=== PATIENT | female | born 1950 | race Caucasian/White ===

== ENCOUNTER 2022-08-07 16:43 | Outpatient (REF) | payer SELFPAY ==
[2022-08-07 18:21] LABS: Anion Gap 16 (12-20); Blood Urea Nitrogen 8 mg/dL (9-16); Calcium 8.9 mg/dL (8.4-10.2); Carbon Dioxide 26 mmol/L (22-29); Chloride 99 mmol/L (96-108); Estimated Glomerular Filt Rate > 60; Glucose Random 71 mg/dL (60-115); Potassium 3.8 mmol/L (3.3-5.1); Sodium 137 mmol/L (135-145)
== END 2022-08-07 16:44 | disposition home or self-care (01) ==
LOC: HO.HVNA 16:43
PROVIDERS: Visit Provider Internal Medicine
DX: D64.9 Anemia, unspecified (principal)
CPT/HCPCS: 36415; 80048

== ENCOUNTER 2023-12-27 13:58 | Outpatient (AMB) | payer OTHER, SELFPAY ==
--- NOTE | 2023-12-27 13:55 | MHC.PC.OV ---
Vital Signs 12/27/23 14:28 Height 5 ft Weight 103 lb 6 oz BMI 20.2 BP 98/62 Blood Pressure Location Lt brachial Position Sitting Respiration 14 Pulse 62 Pulse Source Pulse Oximeter Temp 98.5 F Temp Source Oral Pulse Oximetry (%) 98 Oxygen Delivery Method Room Air Intake Visit Reasons: establish care Intake Note: New patient visit Manager Respiratory Required: No Allergies metronidazole [From Flagyl] Allergy (Unknown, Verified 12/27/23 13:58) Unknown moxifloxacin [From Avelox] Allergy (Unknown, Verified 12/27/23 13:58) Unknown penicillin G Allergy (Unknown, Verified 12/27/23 13:58) Unknown Medication List - Last Reconciled 12/27/23 by Catalina Paris MD clorazepate dipotassium mg PO fluoride (sodium) 1.1% PO BID lactobacillus combination no.4 (Probiotic) 3,000 mmu cells PO DAILY levothyroxine 137 mcg PO DAILY mirtazapine mg PO polyethylene glycol 3350 (Miralax) 17 grams PO DAILY psyllium husk (Daily Fiber) 0.4 grams PO DAILY quetiapine mg PO BID sennosides (Natural Senna Laxative) 8.6 mg PO DAILY varenicline ea PO Tobacco use date assessed: 12/27/23 Fall risk assessment: No Falls in past year Last assessed Fall Risk: 12/27/23 Dental Screening Dental Screen Date: 12/27/23 Did you have a dental visit in the last 12 months?: No Did you have a dental problem in the last 6 months where you did not have access to dental care?: No Was dental information given to patient?: Patient has dentist HPI HPI Comments History of Present Illness Details The patient is a 73 year old female with past medical history of cancer oropharynx, anxiety, insomnia, hypothyroid presenting to reestablish care BH: Stable on current medications Hypothyroid: maintained on levothyroxine. Heme/Onc: Follows [facility] Medical History (Updated 12/31/23 @ 11:32 by Catalina Paris MD) FHx: cholecystectomy Vitamin D deficiency Neck mass Multiple allergies Insomnia Hyperglycemia Hypercholesteremia Hiatal hernia H/O gastroesophageal reflux (GERD) Cervical radiculopathy Anxiety Surgical History (Updated 12/27/23 @ 14:03 by Martita Boles CMA) History of appendectomy H/O: section Family History (Updated 12/27/23 @ 14:00 by Martita Boles [facility]) Mother Aneurysm HTN (hypertension) Sister Mental disorder Paternal Grandfather Heart attack Social History Patient Tobacco Use Status: Current everyday Tobacco user Cigarette Packs Per Day: 3 Years Smoked: 57 e-Cigarette/Vaping Use: Never Used Second Hand Smoke Exposure: No service: No Current occupational status: retired Cognitive needs: No Hearing needs: Yes (difficulty hearing) Vision needs: Yes (glasses) Questionnaire PHQ-9 Over the last 2 weeks, how often have you been bothered by any of the following problems? 1. Little interest or pleasure in doing things: nearly every day 2. Feeling down, depressed, or hopeless: nearly every day 3. Trouble falling or staying asleep, or sleeping too much: nearly every day 4. Feeling tired or having little energy: nearly every day 5. Poor appetite or overeating: nearly every day 6. Feeling bad about yourself - or that you are a failure or have let yourself or your family down: nearly every day 7. Trouble concentrating on things, such as reading the newspaper or watching television: nearly every day 8. Moving or speaking so slowly that other people could have noticed. Or the opposite - being so fidgety or restless that you have been moving around a lot more than usual: nearly every day 9. Thoughts that you would be better off or of hurting yourself in some way: not at all Total score: 24 Depression Screening Interpretation: Positive (declines referral) Depression Screening Follow-up: Existing condition Depression Screening Done: Yes 16816 - PHQ-9 Billing: Yes Source: Developed by Drs. Derrick Finley, Yina Harden, Ja Vizcarra and colleagues, with an educational serena from [employer]. Thrive Questionnaire Date Thrive assessed: 12/27/23 I am a: Patient What is your living situation today?: I have a steady place to live Within the past 12 months, did the food you bought not last and you didn't have the money to get more?: Never true Within the past 12 months, did you worry whether your food would run out before you got money to buy more?: Never true Do you have trouble paying for medicines?: Yes Do you have trouble getting transportation to medical appointments?: No Do you have trouble paying your heating and electricity bill?: Yes Do you have trouble taking care of your child, family member or friend?: Yes Do you have trouble with day-to-day activities such as bathing, preparing meals, shopping, managing finances, etc.?: No Are you currently unemployed and looking for a job?: No Are you interested in more education?: No Please select the resources that you would like help with: None Currently or been in a relationship where the following occur: no concerns reported THRIVE Score: 1 AUDIT C Alcohol Use Questionnaire (AUDIT-C) 1. How often do you have a drink containing alcohol?: Never 3. How often do you have six or more drinks on one occasion?: Never Total Score: 0 JENELLE-7 AMB Questionnaire JENELLE-7 Date JENELLE - 7 assessed: 12/27/23 Feeling nervous, anxious, or on edge: 3 = Nearly every day Not being able to stop or control worryin = Nearly every day Worrying too much about different things: 3 = Nearly every day Trouble relaxin = Nearly every day Being so restless that it is hard to sit still: 3 = Nearly every day Becoming easily annoyed or irritable: 1 = Several days Feeling afraid as if something awful might happen: 3 = Nearly every day Total JENELLE-7 score (0-4 normal; 5-9 mild; 10-14 moderate; 15-21 severe): 19 Source: Developed by Drs. Derrick Finley, Yina Harden, Ja Vizcarra and colleagues, with an educational serena from [employer]. JENELLE-7 Assessment Billing JENELLE-7 Assessment Tool: JENELLE-7 Assessment 52759 Review of Systems Const Details: ROS CONSTITUTIONAL: Denies weight loss, fever and chills. HEENT: Denies changes in vision and hearing. RESPIRATORY: Denies SOB and cough. CV: Denies palpitations and CP GI: Denies abdominal pain, nausea, vomiting and diarrhea. : Denies dysuria and urinary frequency. MSK: Denies new myalgia and joint pain. SKIN: Denies rash and pruritus. NEUROLOGICAL: Denies headache PSYCHIATRIC: Denies recent changes in mood. Physical exam (Primary Care) Vital Signs: Last Vital Signs Temp 98.5 F 12/27/23 14:28 Pulse 62 12/27/23 14:28 Resp 14 12/27/23 14:28 BP 98/62 12/27/23 14:28 Pulse Ox 98 12/27/23 14:28 Oxygen Delivery Method Room Air 12/27/23 14:28 PHYSICAL EXAM: GENERAL: Alert and oriented x 3. NAD EYES: EOMI. Anicteric. HENT: Moist mucous membranes. No scleral icterus. No cervical lymphadenopathy. LUNGS: Clear to auscultation bilaterally. CARDIOVASCULAR: Regular rate and rhythm. No murmur. No JVD. ABDOMEN: Soft, non-tender +bs EXTREMITIES: No edema. Non-tender. SKIN: No rashes or lesions. Warm. NEUROLOGIC: No focal neurological deficits. CN II-XII grossly intact PSYCHIATRIC: Cooperative. Appropriate mood and affect BMI result Body Mass Index 20.2 Tobacco/Smoking Status: Tobacco use Status Tobacco use date assessed 12/27/23 12/27/23 14:27 Patient Tobacco Use Status Current everyday Tobacco 12/27/23 14:27 e-Cigarette/Vaping Use Never Used 12/27/23 14:27 PHQ-9: PHQ-9 Score PHQ-9: Total score 24 12/27/23 14:52 Depression Screening Interpretation: Positive (declines referral) Depression Screening Follow-up: Existing condition Thrive Assessment: Date of Thrive Assessment Date Thrive assessed 12/27/23 12/27/23 14:30 Currently or been in a relationship where the following occur: no concerns reported Assessment and Plan Assessment & Plan (1) Oropharyngeal cancer: Code(s): C10.9 - Malignant neoplasm of oropharynx, unspecified (2) Hyperglycemia: Code(s): R73.9 - Hyperglycemia, unspecified (3) Hypercholesteremia: Code(s): E78.00 - Pure hypercholesterolemia, unspecified (4) H/O gastroesophageal reflux (GERD): Code(s): Z87.19 - Personal history of other diseases of the digestive system (5) Insomnia: Code(s): G47.00 - Insomnia, unspecified Medications: New clorazepate dipotassium 22.5 mg (3 x 7.5 mg) PO DAILY PRN 90 tabs 0RF anxiety levothyroxine 137 mcg PO DAILY 90 tabs 3RF quetiapine 25 mg PO BID 90 days 180 tabs 3RF Coding Level of Care Code Est Pt Level 5 (52191) Complex EM visit Add On G2211 Diagnoses Oropharyngeal cancer C10.9 Hyperglycemia R73.9 Hypercholesteremia E78.00 H/O gastroesophageal reflux (GERD) Z87.19 Insomnia G47.00 Additional Codes JENELLE-7 Assessment Billing - JENELLE-7 Assessment Tool: JENELLE-7 Assessment [id number] ([id number])
[2023-12-27 14:28] VITALS: BP 98/62; PULSE 62; RESP 14; TEMP 36.9; O2SAT 98; BMI 20.2
== END 2023-12-27 14:57 | disposition home or self-care (01) ==
PROVIDERS: Visit Provider Internal Medicine
DX: C10.9 Malignant neoplasm of oropharynx, unspecified (principal); R73.9 Hyperglycemia, unspecified; E78.00 Pure hypercholesterolemia, unspecified; Z87.19 Personal history of other diseases of the digestive system; G47.00 Insomnia, unspecified
CPT/HCPCS: 99215; G2211

== ENCOUNTER 2024-02-18 10:34 | Outpatient (AMB) | payer OTHER, SELFPAY ==
--- NOTE | 2024-02-18 10:43 | MHC.PC.OV ---
Vital Signs 02/18/24 10:52 Height 5 ft Weight 101 lb 4 oz BMI 19.8 BP 112/62 Blood Pressure Location Lt brachial Position Sitting Pulse 62 Pulse Source Pulse Oximeter Pulse Oximetry (%) 96 Oxygen Delivery Method Room Air Intake Visit Reasons: Medication Intake Note: Patient think she is building a tolerance to her anxiety medication. Advertising Display Rotator Required: No Allergies metronidazole [From Flagyl] Allergy (Unknown, Verified 02/18/24 10:45) Unknown moxifloxacin [From Avelox] Allergy (Unknown, Verified 02/18/24 10:45) Unknown penicillin G Allergy (Unknown, Verified 02/18/24 10:45) Unknown Tobacco use date assessed: 12/27/23 Dental Screening Dental Screen Date: 12/27/23 HPI HPI Comments History of Present Illness Details The patient is a 73 year old female with past medical history of cancer oropharynx, anxiety, insomnia, hypothyroid presenting for follow up BH: Increased anxiety, decreased motivation, stress. Previously seen by [facility]. Had been stable for some time on clorazepate. Seroquel with SE. Unclear why not on SSRI though has been hesitant to try and switch medications in the past. Hypothyroid: maintained on levothyroxine. Heme/Onc: Follows [facility] ROS CONSTITUTIONAL: Denies weight loss, fever and chills. HEENT: Denies changes in vision and hearing. RESPIRATORY: Denies SOB and cough. CV: Denies palpitations and CP GI: Denies abdominal pain, nausea, vomiting and diarrhea. : Denies dysuria and urinary frequency. MSK: Denies new myalgia and joint pain. SKIN: Denies rash and pruritus. NEUROLOGICAL: Denies headache PSYCHIATRIC: Denies si/sa PHYSICAL EXAM: GENERAL: Alert and oriented x 3. NAD EYES: EOMI. Anicteric. HENT: Moist mucous membranes. No scleral icterus. No cervical lymphadenopathy. LUNGS: Clear to auscultation bilaterally. CARDIOVASCULAR: Regular rate and rhythm. No murmur. No JVD. ABDOMEN: Soft, non-tender +bs EXTREMITIES: No edema. Non-tender. SKIN: No rashes or lesions. Warm. NEUROLOGIC: No focal neurological deficits. CN II-XII grossly intact PSYCHIATRIC: Cooperative. Appropriate mood and affect, anxious [facility] Medical History (Updated 02/20/24 @ 09:46 by Catalina Paris MD) FHx: cholecystectomy Vitamin D deficiency Neck mass Multiple allergies Insomnia Hyperglycemia Hypercholesteremia Hiatal hernia H/O gastroesophageal reflux (GERD) Cervical radiculopathy Anxiety Surgical History (Updated 12/27/23 @ 14:03 by Martita Boles CMA) History of appendectomy H/O: section Family History (Updated 12/27/23 @ 14:00 by Martita Boles CMA) Mother Aneurysm HTN (hypertension) Sister Mental disorder Paternal Grandfather Heart attack Social History Patient Tobacco Use Status: Current everyday Tobacco user Cigarette Packs Per Day: 3 Years Smoked: 57 Packs Per Year: 171 e-Cigarette/Vaping Use: Never Used Second Hand Smoke Exposure: No service: No Current occupational status: retired Cognitive needs: No Hearing needs: Yes (difficulty hearing) Vision needs: Yes (glasses) Questionnaire Thrive Questionnaire Date Thrive assessed: 12/27/23 JENELLE-7 AMB Questionnaire JENELLE-7 Date JENELLE - 7 assessed: 12/27/23 Source: Developed by Drs. Derrick Finley, Yina Harden, Ja Vizcarra and colleagues, with an educational serena from [employer]. Physical exam (Primary Care) Vital Signs: Last Vital Signs Pulse 62 02/18/24 10:52 BP 112/62 02/18/24 10:52 Pulse Ox 96 02/18/24 10:52 Oxygen Delivery Method Room Air 02/18/24 10:52 BMI result Body Mass Index 19.8 Tobacco/Smoking Status: Tobacco use Status Tobacco use date assessed 12/27/23 02/18/24 10:43 Patient Tobacco Use Status Current everyday Tobacco 02/18/24 10:43 e-Cigarette/Vaping Use Never Used 02/18/24 10:43 Thrive Assessment: Date of Thrive Assessment Date Thrive assessed 12/27/23 02/18/24 10:43 Assessment and Plan Assessment & Plan (1) Oropharyngeal cancer: Code(s): C10.9 - Malignant neoplasm of oropharynx, unspecified (2) Generalized anxiety disorder: Code(s): F41.1 - Generalized anxiety disorder Plan: Discussed SSRI therapy. Trial zoloft 25mg daily. Follow up 4-6 weeks. Continue current medications (3) Depression: Code(s): F32.A - Depression, unspecified Qualifiers: Depression Type: major depressive disorder Major depression recurrence: recurrent Active/Remission status: in partial remission Qualified Code(s): F33.41 - Major depressive disorder, recurrent, in partial remission Medications: New sertraline Take 1/2 tab oral daily for 7 days then 1 tab oral daily for 90 days 25 mg PO DAILY 90 tabs 3RF 90 days F32.A - Depression, unspecified, F41.1 - Generalized anxiety disorder Changed From clorazepate dipotassium 22.5 mg (3 x 7.5 mg) PO DAILY 30 days PRN 90 tabs 0RF anxiety To clorazepate dipotassium 7.5 mg PO QID PRN 120 tabs 0RF anxiety 30 days Coding Level of Care Code Tele Est Pt Level 4 (48103) Diagnoses Oropharyngeal cancer C10.9 Generalized anxiety disorder F41.1 Recurrent major depressive disorder, in partial remission F33.41 Depression Type: major depressive disorder Major depression recurrence: recurrent Active/Remission status: in partial remission
[2024-02-18 10:52] VITALS: BP 112/62; PULSE 62; O2SAT 96; BMI 19.8
== END 2024-02-18 11:53 | disposition home or self-care (01) ==
PROVIDERS: Visit Provider Internal Medicine
DX: C10.9 Malignant neoplasm of oropharynx, unspecified (principal); F41.1 Generalized anxiety disorder; F33.41 Major depressive disorder, recurrent, in partial remission
CPT/HCPCS: 99214

== ENCOUNTER 2024-06-27 11:22 | Outpatient (AMB) | payer OTHER, SELFPAY ==
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
[2024-06-27 11:33] VITALS: BP 92/56; PULSE 69; O2SAT 97; BMI 19.7
== END 2024-06-27 12:01 | disposition home or self-care (01) ==
LOC: HO.HMCFM 11:23
PROVIDERS: PCP Internal Medicine; Visit Provider Internal Medicine
DX: F33.41 Major depressive disorder, recurrent, in partial remission (principal); F41.1 Generalized anxiety disorder; F51.01 Primary insomnia; R73.9 Hyperglycemia, unspecified

== ENCOUNTER → 2024-06-27 11:22 | Outpatient (BNVA) | payer OTHER, SELFPAY | PROVIDERS: PCP Internal Medicine; Visit Provider Internal Medicine | DX: F33.41 Major depressive disorder, recurrent, in partial remission (principal); F41.1 Generalized anxiety disorder; F51.01 Primary insomnia; E03.9 Hypothyroidism, unspecified; R73.9 Hyperglycemia, unspecified; C10.9 Malignant neoplasm of oropharynx, unspecified; E78.00 Pure hypercholesterolemia, unspecified; F17.210 Nicotine dependence, cigarettes, uncomplicated; Z71.89 Other specified counseling | CPT/HCPCS: 96127; 99212 ==

== ENCOUNTER 2024-09-06 11:34 | Outpatient (REF) | payer OTHER, SELFPAY ==
[2024-09-06 14:27] LABS: MANUAL DIFF FLAG NO
[2024-09-06 14:32] LABS: Basophils Absolute Auto 0.1 X10*3/uL (0.0-0.2); Basophils Percent Auto 0.8 % (0-2); Eosinophils Absolute Auto 0.1 X10*3/uL (0.0-0.4); Eosinophils Percent Auto 1.2 % (0-4); Hematocrit 37.8 % (37.0-47.0); Hemoglobin 12.9 g/dl (12.0-16.0); Imm Gran Abs Auto 0.01 X10*3/uL (0.00-0.03); Imm Gran Pct Auto 0.2 % (0.0-0.4); Lymphocytes Absolute Auto 0.9 X10*3/uL (1.2-4.9); Lymphocytes Percent Auto 15.9 % (20-40); Mean Corpuscular HGB Conc 34.1 g/dl (31.0-35.0); Mean Corpuscular Hemoglobin 32.7 pg (27.0-33.0); Mean Corpuscular Volume 95.7 fL (80.0-98.0); Mean Platelet Volume 10.9 fL (9.4-12.3); Monocytes Absolute Auto 0.5 X10*3/uL (0.1-1.2); Monocytes Percent Auto 8.3 % (2-11); Neutrophils Absolute Auto 4.4 x10*3/uL (2.0-8.3); Neutrophils Percent Auto 73.6 % (45-73); Platelet Count 237 X10*3/uL (160-400); Red Blood Count 3.95 X10*6/uL (4.20-5.50); Red Cell Distribution Width 11.9 % (11.0-16.0); White Blood Count 5.9 X10*3/uL (4.8-10.8)
[2024-09-06 14:56] LABS: Alanine Aminotransferase 94 U/L (0-31); Albumin Level 4.2 g/dL (3.5-5.0); Alkaline Phosphatase 237 U/L (39-117); Anion Gap 7 (12-20); Aspartate Amino Transferase 54 U/L (5-31); Bilirubin Total 0.3 mg/dL (0.0-1.0); Blood Urea Nitrogen 9 mg/dL (9-16); Calcium 9.6 mg/dL (8.4-10.2); Carbon Dioxide 30 mmol/L (22-29); Chloride 106 mmol/L (96-108); Cholesterol 160 mg/dL (<200); Estimated Glomerular Filt Rate > 60; Glucose Random 115 mg/dL (60-115); HDL Cholesterol 49 mg/dL (>40); LDL Cholesterol Calculated 77 mg/dL (<100); Potassium 3.8 mmol/L (3.3-5.1); Sodium 139 mmol/L (135-145); Total Protein 7.3 g/dL (6.5-8.0); Triglycerides 170 mg/dL (<150)
[2024-09-06 15:12] LABS: TSH reflex Free T4 0.37 uIU/mL (0.32-4.0)
== END 2024-09-06 11:35 | disposition home or self-care (01) ==
LOC: HO.WFDLDS 11:34
PROVIDERS: Visit Provider Internal Medicine
DX: R73.9 Hyperglycemia, unspecified (principal); E78.00 Pure hypercholesterolemia, unspecified; C10.9 Malignant neoplasm of oropharynx, unspecified; F33.41 Major depressive disorder, recurrent, in partial remission
CPT/HCPCS: 36415; 80053; 80061; 84443; 85025

== ENCOUNTER 2025-01-09 10:56 | Outpatient (AMB) | payer BC, MEDICAID, SELFPAY ==
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
[2025-01-09 11:03] VITALS: BP 116/58; PULSE 71; RESP 12; O2SAT 98; BMI 19.6
== END 2025-01-09 11:30 | disposition home or self-care (01) ==
LOC: HO.HMCFM 10:57
PROVIDERS: PCP Internal Medicine; Visit Provider Internal Medicine
DX: Z00.00 Encounter for general adult medical examination without abnormal findings (principal)

== ENCOUNTER → 2025-01-09 10:56 | Outpatient (BNVA) | payer BC, MEDICAID, SELFPAY | PROVIDERS: PCP Internal Medicine; Visit Provider Internal Medicine | DX: Z00.00 Encounter for general adult medical examination without abnormal findings (principal); F41.9 Anxiety disorder, unspecified; G47.00 Insomnia, unspecified; E03.9 Hypothyroidism, unspecified; C10.9 Malignant neoplasm of oropharynx, unspecified; E78.00 Pure hypercholesterolemia, unspecified; F41.1 Generalized anxiety disorder; R73.9 Hyperglycemia, unspecified; R74.8 Abnormal levels of other serum enzymes | CPT/HCPCS: 96127 ==

== ENCOUNTER 2025-01-09 11:45 | Outpatient (REF) | payer BC, MEDICAID, SELFPAY ==
[2025-01-09 14:23] LABS: MANUAL DIFF FLAG NO
[2025-01-09 14:28] LABS: Basophils Absolute Auto 0.1 X10*3/uL (0.0-0.2); Basophils Percent Auto 1.3 % (0-2); Eosinophils Absolute Auto 0.5 X10*3/uL (0.0-0.4); Eosinophils Percent Auto 7.6 % (0-4); Hematocrit 37.9 % (37.0-47.0); Hemoglobin 13.1 g/dl (12.0-16.0); Imm Gran Abs Auto 0.01 X10*3/uL (0.00-0.03); Imm Gran Pct Auto 0.2 % (0.0-0.4); Mean Corpuscular HGB Conc 34.6 g/dl (31.0-35.0); Mean Corpuscular Hemoglobin 32.4 pg (27.0-33.0); Mean Corpuscular Volume 93.8 fL (80.0-98.0); Mean Platelet Volume 11.3 fL (9.4-12.3); Monocytes Absolute Auto 0.6 X10*3/uL (0.1-1.2); Monocytes Percent Auto 9.6 % (2-11); Neutrophils Absolute Auto 3.9 x10*3/uL (2.0-8.3); Neutrophils Percent Auto 64.3 % (45-73); Platelet Count 240 X10*3/uL (160-400); Red Blood Count 4.04 X10*6/uL (4.20-5.50); Red Cell Distribution Width 12.1 % (11.0-16.0); White Blood Count 6.1 X10*3/uL (4.8-10.8)
[2025-01-09 14:40] LABS: Estimated Average Glucose 103 mg/dL; Hemoglobin A1C 107.5388 umol/L; Hemoglobin A1c % 5.2 % (<6.0); Total Hemoglobin (HGBA1C) 3278.7272 umol/L
[2025-01-09 14:47] LABS: Alanine Aminotransferase 90 U/L (0-31); Albumin Level 4.2 g/dL (3.5-5.0); Alkaline Phosphatase 228 U/L (39-117); Anion Gap 9 (12-20); Aspartate Amino Transferase 52 U/L (5-31); Bilirubin Total 0.3 mg/dL (0.0-1.0); Blood Urea Nitrogen 12 mg/dL (9-16); Calcium 9.4 mg/dL (8.4-10.2); Carbon Dioxide 29 mmol/L (22-29); Chloride 103 mmol/L (96-108); Cholesterol 161 mg/dL (<200); Estimated Glomerular Filt Rate > 60; Glucose Random 87 mg/dL (60-115); HDL Cholesterol 47 mg/dL (>40); LDL Cholesterol Calculated 90 mg/dL (<100); Potassium 3.5 mmol/L (3.3-5.1); Sodium 137 mmol/L (135-145); Total Protein 7.3 g/dL (6.5-8.0); Triglycerides 124 mg/dL (<150)
[2025-01-09 15:03] LABS: TSH reflex Free T4 1.23 uIU/mL (0.32-4.0)
[2025-01-12 06:58] LABS: Alk.Phos Iso. Macrohepatic 24 % (<=0); Alk.Phos Isoenzymes Bone 19 % (28-66); Alk.Phos Isoenzymes Intest 18 % (1-24); Alk.Phos Isoenzymes Liver 39 % (25-69); Alk.Phos Isoenzymes Placental 0 % (<=0); Alk.Phos Isoenzymes Total 206 U/L (37-153)
== END 2025-01-09 11:46 | disposition home or self-care (01) ==
LOC: HO.WFDLDS 11:45
PROVIDERS: Visit Provider Internal Medicine
DX: E78.00 Pure hypercholesterolemia, unspecified (principal); R73.9 Hyperglycemia, unspecified; F41.1 Generalized anxiety disorder; C10.9 Malignant neoplasm of oropharynx, unspecified; R74.8 Abnormal levels of other serum enzymes
CPT/HCPCS: 36415; 80053; 80061; 83036; 84080; 84443; 85025

== ENCOUNTER 2025-01-29 13:41 | Outpatient (REF) | payer MEDICARE, OTHER, SELFPAY ==
--- OUTSIDE RECORDS SUMMARY | 2025-01-29 15:31 | XMS_ITS | Encounter Summary ---
Author Organization [facility] Address [address] [place] [phone] Care Team Providers Care Weight Reducing Technician Name Role Phone Catalina Paris MD Primary Care Provider [phone] Reason for Visit * Reason Onset Date Comments INFORMATION NEEDED 01/19/2025 Encounter Details Date Type Department Care Team (Late st Contact Info) Description 01/19/2025 Telephone Gastroenterology - [place] [address] [place] [phone] Hemal Bacon MD 175 [facility] [address] [place] [address] INFORMATION NEEDED Social History Tobacco Use Types Packs/Day Years Used Date Smoking Tobacco: Never Assessed Comments Unknown Sex and Gender Information Value Date Recorded Sex Assigned at Not on file Legal Sex Female 1:13 PM EST Gender Identity Not on file Sexual Orientation Not on file documented as of this encounter Progress Notes * Angela Delacruz - 01/19/2025 1:07 PM EDT Records received from [facility] [place] for screening. Need insurance referral and meds. Faxed request and placed in missing accordion. documented in this encounter Plan of Treatment Not on file documented as of this encounter Visit Diagnoses Not on filedocumented in this encounter Care Teams Weight Reducing Technician Relationship Specialty Start Date End Date Catalina Paris MD [address] [facility] [address] [place] [address] PCP - General 08/07/22 documented as of this encounter
== END 2025-01-29 13:42 | disposition home or self-care (01) ==
LOC: HO.MAMMO 13:41
PROVIDERS: PCP Internal Medicine; Visit Provider Internal Medicine
DX: Z12.31 Encounter for screening mammogram for malignant neoplasm of breast (principal)
CPT/HCPCS: 77063; 77067

== ENCOUNTER → 2025-01-29 13:45 | Outpatient (BNV) | payer MEDICARE, MEDICAID, SELFPAY | PROVIDERS: PCP Internal Medicine; Visit Provider Internal Medicine | DX: Z12.31 Encounter for screening mammogram for malignant neoplasm of breast (principal) | CPT/HCPCS: 77063; 77067 ==

== ENCOUNTER 2025-04-12 14:43 | Outpatient (AMB) | payer MEDICARE, MEDICAID, SELFPAY ==
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
--- OUTSIDE RECORDS SUMMARY | 2025-04-12 14:45 | XMS_ITS | Encounter Summary ---
Author Organization [facility] Address [address] [place] [address] Phone Care Team Providers Care Dairy Bar Manager Name Role Phone Catalina Gastelum MD Primary Care Provider [phone] Quin Barragan PROPOSAL WRITER Unavailable [phone] Jaylin Ribeiro PROPOSAL WRITER Unavailable [phone] Sabine Harrison RN Unavailable [email or web address] Vitale RN Unavailable Oralia [email or web address] Zara Emerson PA-C Unavailable + Jada Mayfield MD, MPH Unavailable + [phone] Encounter Details Date Type Department Care Team (Late st Contact Info) Description 06/04/2022 Procedure Pass [facility] [address] [place] [address] Social History Tobacco Use Types Packs/Day Years Used Date Smoking Tobacco: Every Day Cigarettes 0.3 50 Smokeless Tobacco: Never Comments:smoked cigarettes s peg the age of 17, currenty 5 cigarettes a day Alcohol Use Standard Drinks/Week Comments Never 0 (1 standard drink = 0.6 oz pur e alcohol) Comments No Sex and Gender Information Value Date Recorded Sex Assigned at Female 07/24/2022 1:36 PM EST Legal Sex Female 12:17 PM EDT Gender Identity Female 07/24/2022 1:36 PM EST Sexual Orientation Straight 07/24/2022 1: 36 PM EST 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 Not on file Not on file Not o n file documented as of this encounter Plan of Treatment Upcoming Encounters Date Type Department Care Team (Late st Contact Info) Description 09/13/2025 10:20 AM EST Blood Draw Laboratory Services, [address] [place] [address] Reid Muhammad MD [address] [place] [phone] [email or web address] 09/13/2025 11:00 AM EST [facility], [address], [address] [place] [phone] Derrick Munoz MD [address] [place] [phone] [email or web address] 03/21/2026 1:00 PM EDT Office Visit [facility], [address], [address] [place] [address] Andres Banks MD, PhD [address] [place] [phone] [email or web address] documented as of this encounter Visit Diagnoses Not on filedocumented in this encounter Care Teams Dairy Bar Manager Relationship Specialty Start Date End Date Catalina Gastelum MD PCP - General Internal Medicine 04/09/22 Quin Barragan PROPOSAL WRITER [address] [place] [phone] [email or web address] Asbestos Remover 04/28/22 Jaylin Ribeiro, [address] [address] [email or web address] Asbestos Remover Oncology 05/12/22 Sabine Harrison, ALY [address] [place] [phone] [email or web address] Primary Infusion Nurse 05/19/22 Ivon Cameron RN [address] [place] [address] [email or web address] Associate Infusion Nurse 05/19/22 Zara Emerson PA-C [address] [place] [address] and [facility] [address] [email or web address] Physician Carpenter Packing 06/15/23 Jada Mayfield MD, MPH [address] [place] [phone] [email or web address] Radiation Oncology 06/15/23 documented as of this encounter Additional Source Comments The information contained in this document represents components of the legal health record. It is not the complete legal health record.[facility]
--- OUTSIDE RECORDS SUMMARY | 2025-04-12 14:45 | XMS_ITS | Clinical Summary ---
Author Organization 175 [facility] Address [address] [place] [address] Phone Care Team Providers Care Figure Skater Name Role Phone Catalina Paris MD Primary Care Provider [phone] Encounters Date Type Department Care Team Description 01/19/2025 Telephone Gastroenterology [facility] 175 [facility] [address] [facility] [address] [place] [address] Hemal Bacon MD INFORMATION NEEDED from Last 3 Months Social History Tobacco Use Types Packs/Day Years Used Date Smoking Tobacco: Never Assessed Comments Unknown Sex and Gender Information Value Date Recorded Sex Assigned at Not on file Legal Sex Female 1:13 PM EST Gender Identity Not on file Sexual Orientation Not on file Plan of Treatment Health Maintenance Due Date Last Done Comments Breast Cancer Screening 1950 DTaP,Tdap,and Td Vaccines (1 - Tdap) 1971 Pneumococcal Vaccine: 50+ Ye ars (1 of 1 - PCV) 2002 Zoster Vaccines (1 of 2) 2002 Colorectal Cancer Screening: Colonoscopy 09/21/2023 Falls Risk Assessment 09/21/2023 Hepatitis C Screening 09/21/2023 Medicare Annual Wellness Visit 09/21/2023 Osteoporosis Screening (Bone Density Screening) 09/21/2023 Social Influencers of Health Screening 09/21/2023 COVID-19 Vaccine ( - 2023-2 5 season) 2024 Depression Screening 08/23/2024 Influenza Vaccine (#1) 2025 RSV Immunization Adult Patie nts (1 - 1-dose 75+ series) 2027 HIB Vaccines Aged Out No longer eligi ble based on patient's age to complete this topic HPV Vaccines Aged Out No longer eligi ble based on patient's age to complete this topic Hepatitis A Vaccines Aged Out No long er eligible based on patient's age to complete this topic Hepatitis B Vaccines Aged Out No long er eligible based on patient's age to complete this topic IPV Vaccines Aged Out No longer eligi ble based on patient's age to complete this topic MMR Vaccines Aged Out No longer eligi ble based on patient's age to complete this topic Meningococcal ACWY Vaccine Aged Out N o longer eligible based on patient's age to complete this topic Meningococcal B Vaccine Aged Out No l onger eligible based on patient's age to complete this topic RSV Immunization Patients Un matt 20 months Aged Out No longer eligible b ased on patient's age to complete this topic Varicella Vaccines Aged Out No longer eligible based on patient's age to complete [place] [address] BL[place] - [place] MEDIC[place] AD[place]ANTAGE [place]ICAID - [place] Care Teams Figure Skater Relationship Specialty Start Date End Date Catalina Paris MD [address] [place] [id number] PCP - General 08/07/22
== END 2025-04-12 14:47 | disposition home or self-care (01) ==
LOC: HO.HOP 14:43
PROVIDERS: PCP Internal Medicine; Visit Provider Clinical Nurse Specialist Psychiatric/Mental Health, Adult
DX: F39 Unspecified mood [affective] disorder (principal)
CPT/HCPCS: 90792

== ENCOUNTER → 2025-04-12 14:43 | Outpatient (BNVA) | payer MEDICARE, MEDICAID, SELFPAY | PROVIDERS: PCP Internal Medicine; Visit Provider Clinical Nurse Specialist Psychiatric/Mental Health, Adult | DX: F39 Unspecified mood [affective] disorder (principal) | CPT/HCPCS: 90792 ==

== ENCOUNTER 2025-04-26 13:59 | Outpatient (AMB) | payer MEDICARE, MEDICAID, SELFPAY ==
--- NOTE | 2025-04-26 14:09 | A.OFFPSYCH_ITS ---
Intake Intake Visit Reasons: follow up Intake Note: PHQ-9 22 JENELLE-7 20 Cap Coverer Required: No Allergies metronidazole (From Flagyl) Allergy (Unknown, Verified 01/09/25 11:00) Unknown moxifloxacin (From Avelox) Allergy (Unknown, Verified 01/09/25 11:00) Unknown penicillin G Allergy (Unknown, Verified 01/09/25 11:00) Unknown Medication List - Last Reconciled 04/26/25 by Florence Ojeda APRN aspirin (Adult Low Dose Aspirin) 81 mg PO DAILY clorazepate dipotassium 7.5 mg PO QID esomeprazole magnesium (Nexium 24HR) 20 mg PO DAILY fluconazole 150 mg PO DAILY fluoride (sodium) 1.1% PO BID lactobacillus combination no.4 (Probiotic) 3,000 mmu cells PO DAILY lamotrigine (Lamictal) 25 mg PO DAILY 14 days levothyroxine 137 mcg PO DAILY mirtazapine orally AT BEDTIME; take one to two tablets at bedtime polyethylene glycol 3350 (Miralax) 17 grams PO DAILY psyllium husk (Daily Fiber) 0.4 grams PO DAILY quetiapine 25 mg PO QID 90 days sennosides (Natural Senna Laxative) 8.6 mg PO DAILY sertraline 25 mg PO DAILY HPI- Psychiatric Chief Complaint: follow up Intake Note: Anu reports ongoing stress as sister will be living with her when her hospitalization is completed and she requires much care. Finances are also a stress for pt and her son. She reports they are liquidating assets which is stressful and managing issues with tenants. Reports reqular compliance with clorazepate, although pt reports it franco her mouth, lamictal. Intermittent mirtazapine/sertraline use. Seroquel is being used with sx of sore throat today. She remains anxious. We discussed increasing Lamictal to 50 mg and a trial of Olanzapine 2.5 mg to assist with grounding and anxiety mgt. to replace Seroquel which she agrees to trial. HPI Past Psychiatric History: Trials: Sertraline, Seroquel, Mirtazapine Subjective Subjective Subjective Medication Compliance: Intermittent Side effects from medications: Yes Review of Systems Medical Review of Systems: unchanged Review of Systems Review of Systems sore throat- pt believes from Seroquel, mouth burning- pt believes from clorazepate. Mental Status Exam Mental Status Exam Patient Appearance: Appropriate Patient Orientation: Person, Place, Time and Situation Level of Consciousness: Alert Patient Behavior: Anxious Mood Description: Anxious Affect Description: Anxious Patient Cognition Impaired: No Ability to Follow Directions: Good Speech Pattern: Spontaneous Speech Memory Description: Intact Hallucinations: None Delusions: Not Present Thought Process: Intact and Rumination Thought Content: positive for Perseveration and positive for Suicidal Ideation (denies) Depressive Symptoms: Increased Anxiety Judgement: Good Assessment and Plan Assessment & Plan (1) Generalized anxiety disorder: Status: Acute Code(s): F41.1 - Generalized anxiety disorder (2) Depression: Status: Acute Qualifiers: Depression Type: major depressive disorder Major depression recurrence: recurrent Active/Remission status: in partial remission Qualified Code(s): F33.41 - Major depressive disorder, recurrent, in partial remission Code(s): F32.A - Depression, unspecified (3) Mood disorder: Status: Acute Code(s): F39 - Unspecified mood [affective] disorder Plan Increase Lamictal to 50 mg daily Olanzapine 2.5 mg daily prn for anxiety, grounding mgt of sx trial. Medications: New olanzapine 2.5 mg PO DAILY PRN 7 tabs 0RF anxiety lamotrigine (Lamictal) 50 mg (2 x 25 mg) PO DAILY 28 tabs 0RF 14 days Counseling and coordination of Care Medication management counseling: Effectiveness, Side effects, Dosing range, Duration, Drug interaction and Adherence Details: I spent [] minutes reviewing the record, seeing the patient and documenting in the medical record. Counseling provided to the patient/caregiver as outlined below. Addressed patient/caregiver concerns regarding current medication regime including effective adherence. Addressed patient/caregiver concerns regarding diagnosis and prognosis including accuracy of diagnosis, prognosis over time, impact of diagnosis. Addressed patient/caregiver concerns regarding impact of recent stre ssors. [facility] Medical History FHx: cholecystectomy Vitamin D deficiency Neck mass Multiple allergies Insomnia Hyperglycemia Hypercholesteremia Hiatal hernia H/O gastroesophageal reflux (GERD) Cervical radiculopathy Anxiety Surgical History History of appendectomy H/O: section Family History Mother Aneurysm HTN (hypertension) Sister Mental disorder Paternal Grandfather Heart attack Social History Alcohol intake: never Patient Tobacco Use Status: Current everyday Tobacco user Cigarette Packs Per Day: 3 Years Smoked: 57 e-Cigarette/Vaping Use: Never Used Second Hand Smoke Exposure: No service: No Current occupational status: retired Cognitive needs: No Hearing needs: Yes (difficulty hearing) Vision needs: Yes (glasses) Social History: Father was a chief scientific officer, sister with bipolar disorder and borderline personality. Pt's son is 36, he is my life Substance History: smoker of 57 years Trauma History: affirms Coding Level of Care Code Est Pt Level 3 (73248) Diagnoses Generalized anxiety disorder F41.1 Recurrent major depressive disorder, in partial remission F33.41 Depression Type: major depressive disorder Major depression recurrence: recurrent Active/Remission status: in partial remission Mood disorder F39
--- OUTSIDE RECORDS SUMMARY | 2025-04-26 15:14 | XMS_ITS ---
Author Organization [facility] Address [address] [place] [address] Phone Care Team Providers Care Delivery Helper Name Role Phone Catalina Gastelum MD Primary Care Provider [phone] Quin Barragan TECHNICAL WRITER AND EDITOR Unavailable [phone] Jaylin Ribeiro TECHNICAL WRITER AND EDITOR Unavailable [phone] Sabine Harrison RN Unavailable [email or web address]. Ivon Vitale RN Unavailable Oralia 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 Able to have a bowel movement in the hospital after initiation of aggressive bowel regiment. - Continue aggressive bowel regimen: senna, miralax, PRN suppostory, PRN lactulose, PRN MOM. S/p relistor and manual disimpaction on 07/25 with moderate relief - Currently stable without evidence of bowel wall thickening, no role for antibiotics - Enema today with pre-medication - PRN simethicone - pain control: PRN tylenol, oxycodone 5mg PRN - nausea control: IV/PO reglan PRN(with additional promotility benefit), avoid zofran as constipation Anxiety 04/22/2022 Cervical radiculopathy 04/22/2022 Gastroesophageal reflux disease 04/22/2022 Hiatal hernia 04/22/2022 Hypercholesterolemia 04/22/2022 Hyperglycemia 04/22/2022 Hypothyroidism 04/22/2022 Assessment & Plan (07/24/2022 8:11 PM EST): -continue home levothyroxine Insomnia 04/22/2022 Vitamin D deficiency 04/22/2022 Squamous cell carcinoma of base of tongue 2021 Assessment & Plan (07/24/2022 8:10 PM EST): Presented with enlarged lymph nodes on both sides of the neck in the setting of COVID infection, they resolved, however a new distinct mass grew larger over the left side of the neck over the following weeks in June of 2021. In August 2021 an US of the neck was ordered and performed in January. It showed enlarged, morphologically abnormal lymph nodes in the lateral aspect of the left neck measuring up to 1.3 cm superiorly and 1.[address] of the neck in March showed asymmetrically enhancing lesion extending from the posterior aspect of the left base up to the mid tongue. Multilevel bilaterally enlarged cervical lymph nodes demonstrating areas of necrosis. PET/CT later that month showed a 2 cm mass arising from the left posterior/base of tongue. Biopsy showed squamous cell carcinoma. Started on weekly cisplatin and XRT. Primary Medical Oncologist: MD: Dr. Munoz Assessment & Plan (07/21/2022 5:27 PM EST): Treatment: s/p Weekly Cisplatin + XRT o Hydrate today on Y11 o KUB shows moderate amount of stool, no signs of obstruction. Given Bisacodyl suppository in clinic with small amount of stool passed. Prescribed lactulose to use at home. Recommended she continue senna and take lactulose daily with a goal of daily bowel movements. She will call if she does not have daily bowel movements. Pain Management: Oxycodone as needed for pain Nausea Management: Metoclopramide, Ondansetron and Lorazepam o Encouraged to minimize Ondansetron to decrease risk of constipation Bowel Regimen: Senna and Lactulose Oral Care / Dental Hygiene: Oral rinses as indicated Nutritional Support: Tolerating a modified diet Supplementing oral diet with tube feeds. Weight is down. o Encouraged to increase caloric intake and utilize PEG if unable to do this by mouth. MANAGER CLINICAL INFORMATICS Support: As needed Emotional: Coping well Assessment & Plan (07/17/2022 11:38 PM EST): Treatment: s/p Weekly Cisplatin + XRT Hydrate today on Y11 Triamcinolone cream for skin rash Pain Management: Anu met with Dr. Beck today to review pain regimen Nausea Management: Metoclopramide, Ondansetron and Lorazepam Bowel Regimen: Colace, Senna and Miralax Oral Care / Dental Hygiene: Oral rinses as indicated Nutritional Support: Tolerating a modified diet Supplementing oral diet with tube feeds. Weight is down. Encouraged to increase caloric intake and utilize PEG if unable to do this by mouth. MANAGER CLINICAL INFORMATICS Support: As needed Emotional: Coping well Assessment & Plan (07/13/2022 10:17 PM EST): Treatment: Weekly Cisplatin + XRT She has completed her treatment Reviewed the expected trajectory of recovery, and reinforced that it could be 3- 4 weeks before she feels notably better. She should continue to push fluids, maintain her weight, and manage her pain. Pain Management: Acetaminophen and Oxycodone Nausea Management: Metoclopramide, Ondansetron and Lorazepam Bowel Regimen: Colace, Senna and Miralax Oral Care / Dental Hygiene: Oral rinses as indicated Nutritional Support: Tolerating a modified diet Supplementing oral diet with tube feeds. Weight is down. Encouraged to increase caloric intake and utilize PEG if unable to do this by mouth. MANAGER CLINICAL INFORMATICS Support: As needed Emotional: Coping well Assessment & Plan (07/05/2022 9:56 PM EST): Treatment: Weekly Cisplatin + XRT OK to continue treatment today: C1 D43 Pain Management: Acetaminophen Nausea Management: Metoclopramide, Ondansetron, Dexamethasone and Lorazepam Bowel Regimen: Colace and Senna Oral Care / Dental Hygiene: Oral rinses as indicated Nutritional Support: Tolerating a modified diet Weight is down. Encouraged to increase caloric intake and utilize PEG if unable to do this by mouth. MANAGER CLINICAL INFORMATICS Support: As needed Emotional: Coping well Assessment & Plan (06/26/2022 10:56 AM EDT): Treatment: Weekly Cisplatin + XRT OK to continue treatment today: C1 D36 Pain Management: Acetaminophen Nausea Management: Metoclopramide, Ondansetron, Dexamethasone and Lorazepam Bowel Regimen: Colace and Senna Oral Care / Dental Hygiene: Oral rinses as indicated Nutritional Support: Tolerating a modified diet Weight is down. Encouraged to increase caloric intake and utilize PEG if unable to do this by mouth. MANAGER CLINICAL INFORMATICS Support: As needed Emotional: Coping well Assessment & Plan (06/13/2022 9:19 PM EDT): Treatment: Weekly Cisplatin + XRT OK to continue treatment today: C1 D22 Pain Management: Acetaminophen Nausea Management: Metoclopramide, Ondansetron, Dexamethasone and Lorazepam Bowel Regimen: Colace and Senna Oral Care / Dental Hygiene: Oral rinses as indicated Nutritional Support: Tolerating full oral diet. Weight is down. MANAGER CLINICAL INFORMATICS Support: As needed Emotional: Coping well Assessment & Plan (06/05/2022 12:51 AM EDT): Treatment: C1 D15 Weekly Cisplatin + XRT PEG planned for later this week Is not tolerating rapid steroid taper. Will have her do slower taper: Dexamethasone 8 mg BID Wed/Wed, Wednesday 4 mg BID, Wednesday 4 mg QAM Pain Management: Acetaminophen Nausea Management: Metoclopramide, Ondansetron, Dexamethasone and Lorazepam Bowel Regimen: Colace and Senna Oral Care / Dental Hygiene: Oral rinses as indicated Nutritional Support: Tolerating full oral diet. Weight is down. MANAGER CLINICAL INFORMATICS Support: As needed Emotional: Coping well Assessment & Plan (06/01/2022 1:20 PM EDT): Treatment: C1 D8 Weekly Cisplatin + XRT PT-INR and EKG today for planned PEG placement in the next 1-2 weeks Pain Management: Acetaminophen Nausea Management: Metoclopramide, Ondansetron, Dexamethasone and Lorazepam Bowel Regimen: Colace and Senna Oral Care / Dental Hygiene: Oral rinses as indicated Nutritional Support: Tolerating full oral diet. Weight is down. MANAGER CLINICAL INFORMATICS Support: As needed Emotional: Coping well Current Treatment and Therapy Plans No current plan information found. Past Treatment and Therapy Plans TREATMENT PLAN Plan Name Start Date Discontinue Date Treatment Medications Discontinue Reason Plan Provider Cycles CISPLATIN 40 MG/M2 WITH XRT (7 WEEK CYCLE) 05/19/2022 03/16/2023 CISplatin (PLATINOL) IVPB 270 mL a. Therapy Complete Derrick Munoz MD 1 of 1 cycle started Radiation Treatments * Course C1 05/18/2022 - 07/06/2022 Treatment Period Energy Fraction Dose Fractions Total Dose Plans Planned A1_OPX_BIL_NK 05/18/2022 - 07/06/2022 200 cGy 35 / 35 7,000 cGy Reference Points Delivered A_OPX_BIL_NK 05/18/2022 - 07/06/2022 7,000 cGy
--- OUTSIDE RECORDS SUMMARY | 2025-04-26 15:14 | XMS_ITS | Encounter Summary ---
Author Organization [facility] Address [address] [place] [address] Phone Care Team Providers Care Administrative Manager Name Role Phone Catalina Gastelum MD Primary Care Provider + [phone] Quin Barragan MELT DOWN FURNACE OPERATOR Unavailable [phone] Jaylin Ribeiro MELT DOWN FURNACE OPERATOR Unavailable [phone] Sabine Harrison RN Unavailable [email or web address] Ivon Vitale RN Unavailable Oralia [email or web address] Zara Emerson PA-C Unavailable + Jada Mayfield MD, MPH Unavailable + [phone] Encounter Details Date Type Department Care Team (Late st Contact Info) Description 04/20/2022 Procedure Pass [facility] Periop [address] [place] [address] Social History Tobacco Use Types Packs/Day Years [...] 10:20 AM EST Blood Draw Laboratory Services, [address], [address] [place] [address] Reid Muhammad MD [address] [place] [phone] [email or web address] 09/13/2025 11:00 AM EST [facility], [address], [address] [place] [phone] Derrick Munoz MD [address] [place] [phone] [email or web address] 03/21/2026 1:00 PM EDT Office Visit [facility], [address], [address] [place] [phone] Andres Banks MD, PhD [address] [place] [phone] [email or web address] documented as of this encounter Visit Diagnoses Not on filedocumented in this encounter Care Teams Administrative Manager Relationship Specialty Start Date End Date Catalina Gastelum MD PCP - General Internal Medicine 04/09/22 Quin Barragan MELT DOWN FURNACE OPERATOR [address] [place] [phone] [email or web address] House Calls Nurse Practitioner 04/28/22 Jaylin Ribeiro, [address] [address] [email or web address] House Calls Nurse Practitioner Oncology 05/12/22 Sabine Harrison, ALY [address] [place] [address] JOSÉ [email or web address] Primary Infusion Nurse 05/19/22 Ivon Cameron RN [address] [place] [address] [email or web address] Associate Infusion Nurse 05/19/22 Zara Emerson PA-C [address] [place] [address] and [place] [place] [address] [email or web address] Physician Biomedical Specialist 06/15/23 Jada Mayfield MD, MPH [address] [place] [phone] [email or web address] Radiation Oncology 06/15/23 documented as of this encounter Additional Source Comments The information contained in this document represents components of the legal health record. It is not the complete legal health record.[facility]
--- OUTSIDE RECORDS SUMMARY | 2025-04-26 15:14 | XMS_ITS | Encounter Summary ---
Author Organization [facility] Address [address] [place] [address] Phone Care Team Providers Care Otr Flatbed Driver Name Role Phone Catalina Gastelum MD Primary Care Provider + [phone] Quin Barragan YOUTH ASSOCIATE Unavailable [phone] Jaylin Ribeiro YOUTH ASSOCIATE Unavailable [phone] Sabine Harrison RN Unavailable MICHELLE [email or web address] Ivon Vitale RN Unavailable Oralia [email or web address] Zraa Emerson PA-C Unavailable + Jada Mayfield MD, MPH Unavailable + [phone] Encounter Details Date Type Department Care Team (Late st Contact Info) Description 11/06/2022 Procedure Pass [facility] Imaging [facility], [facility], [place] [address] [place] [address] Social History Tobacco Use Types Packs/Day Years [...] 10:20 AM EST Blood Draw Laboratory Services, [address], [address] [place] [address] Reid Muhammad MD [address] [place] [phone] [email or web address] 09/13/2025 11:00 AM EST Office Visit [facility], [address], [address] [place] [address] Derrick Munoz MD [address] [place] [phone] [email or web address] 03/21/2026 1:00 PM EDT Office Visit [facility], [address], [address], [place] [address] Andres Banks MD, PhD [address] [place] [phone] [email or web address] documented as of this encounter Visit Diagnoses Not on filedocumented in this encounter Care Teams Otr Flatbed Driver Relationship Specialty Start Date End Date Catalina Gastelum MD PCP - General Internal Medicine 04/09/22 Quin Barragan, [facility] [address] [place] [address] [email or web address] Production Control Scheduler 04/28/22 Jaylin Ribeiro, [facility] [address] [place] [address] [email or web address] Production Control Scheduler Oncology 05/12/22 Sabine Harrison, RN [address] [place] [phone] JOSÉ [email or web address] Primary Infusion Nurse 05/19/22 Ivon Cameron RN [address] [place] [address] [email or web address] Associate Infusion Nurse 05/19/22 Zara Emerson PA-C [address] [place] [address] [place] [address] [email or web address] Physician Certified Nurse Operating Room 06/15/23 Jada Mayfield MD, MPH [address] [place] [phone] [email or web address] Radiation Oncology 06/15/23 documented as of this encounter Additional Source Comments The information contained in this document represents components of the legal health record. It is not the complete legal health record.[facility]
--- OUTSIDE RECORDS SUMMARY | 2025-04-26 15:14 | XMS_ITS | Encounter Summary ---
Author Organization [facility] Address [address] [place] [address] Phone Care Team Providers Care Floral Design Teacher Name Role Phone Catalina Gastelum MD Primary Care Provider + [phone] TRAFFIC CONTROL TECHNICIAN Unavailable [phone] TRAFFIC CONTROL TECHNICIAN Unavailable [phone] Sabine Harrison RN Unavailable [email or web address] Ivon Vitale RN Unavailable Oralia [email or web address] Zara Emerson PA-C Unavailable + Jada Mayfield MD, MPH Unavailable + [phone] Encounter Details Date Type Department Care Team (Late st Contact Info) Description 12/07/2023 Procedure Pass [facility] Imaging Department, [facility] [place], [place] [address] [facility], [address] [place] [address] Social History Tobacco Use Types Packs/Day Years Used Date Smoking Tobacco: Every Day Cigarettes 0.3 50 Smokeless Tobacco: Never Comments:smoked cigarettes s peg the age of 17, currenty 5 cigarettes a day Alcohol Use Standard Drinks/Week Comments Never 0 (1 standard drink = 0.6 oz pur e alcohol) Education Answer Date Recorded Are you interested in more education? Not on eduin e 12/18/2022 Are you concerned about learning? Not on file 12/18/2022 No 12/18/2022 No 12/18/2022 Digital Access Answer Date Recorded No 01/19/2023 No 01/19/2023 Reliable internet access at home? Not on file 01/19/2023 Device with a working camera? Not on file Comments No Sex and Gender Information Value [...] 10:20 AM EST Blood Draw Laboratory Services, [address], [address] [place] [address] Reid Muhammad MD [address] [place] [phone] [email or web address] 09/13/2025 11:00 AM EST Office Visit [facility], [address], [address] [place] [address] Derrick Munoz MD [address] [place] [phone] [email or web address] 03/21/2026 1:00 PM EDT Office Visit [facility], [address], [address] [place] [address] Andres Banks MD, PhD [address] [place] [phone] [email or web address] documented as of this encounter Visit Diagnoses Not on filedocumented in this encounter Care Teams Floral Design Teacher Relationship Specialty Start Date End Date Catalina Gastelum MD PCP - General Internal Medicine 04/09/22 Quin Barragan, [address] [address] [email or web address] Clinical Engineer 04/28/22 Jaylin Ribeiro, [address] [address] [email or web address] Clinical Engineer Oncology 05/12/22 Sabine Harrison, ALY [address] [place] [address] JOSÉ [email or web address] Primary Infusion Nurse 05/19/22 Ivon Cameron RN [address] [place] [address] [email or web address] Associate Infusion Nurse 05/19/22 Zara Emerson PA-C [address] [place] [phone] [email or web address] Physician Retail Shift Leader 06/15/23 Jada Mayfield MD, MPH [address] [place] [phone] [email or web address] Radiation Oncology 06/15/23 documented as of this encounter Additional Source Comments The information contained in this document represents components of the legal health record. It is not the complete legal health record.[facility]
--- OUTSIDE RECORDS SUMMARY | 2025-04-26 15:14 | XMS_ITS | Clinical Summary ---
Author Organization [address] [facility] Address [address] [place] [address] Phone Care Team Providers Care Inspector Screen Printing Name Role Phone Catalina Paris MD Primary Care Provider [phone] Social History Tobacco Use Types Packs/Day Years [...] patient's age to complete this topic Insurance [facility] [place] [id number] [place]IC[place] - [place] Care Teams Inspector Screen Printing Relationship Specialty Start Date End Date Catalina Paris MD [address] [place] [address] [address] [place] [address] PCP - General 08/07/22
--- OUTSIDE RECORDS SUMMARY | 2025-04-26 15:14 | XMS_ITS | Encounter Summary ---
Author Organization [facility] Address [address] [facility] [address] [place] [address] Phone Care Team Providers Care Pilot Boat Operator Name Role Phone Catalina Gastelum MD Primary Care Provider + [phone] Quin Barragan LOAN REVIEW MANAGER Unavailable [phone] Jaylin Ribeiro LOAN REVIEW MANAGER Unavailable [phone] Sabine Harrison RN Unavailable MICHELLE [email or web address]. Ivon Vitale RN Unavailable Oralia [email or web address] Zara Emerson PA-C Unavailable + Jada Mayfield MD, MPH Unavailable + [phone] Encounter Details Date Type Department Care Team (Late st Contact Info) Description 11/06/2022 Procedure Pass Trudy Lank Imaging Department, [facility] [place], [place] [address] [facility], Floor [address]1 [place] [address] Social History Tobacco Use Types Packs/Day Years [...] 10:20 AM EST Blood Draw Laboratory Services, [address], 2nd [place] [address] Reid Muhammad MD [address] [place] [phone] [email or web address] 09/13/2025 11:00 AM EST Office [facility], [address], [address] [place] [address] Derrick Munoz MD [address] [place] [phone] Olegario@[email or web address] 03/21/2026 1:00 PM EDT Office Visit [facility], [address], [address], [place] [address] Andres Banks MD, PhD [address] [place] [phone] [email or web address]@[email or web address] documented as of this encounter Visit Diagnoses Not on filedocumented in this encounter Care Teams Pilot Boat Operator Relationship Specialty Start Date End Date Catalina Gastelum MD PCP - General Internal Medicine 04/09/22 Quin Barragan, [facility] [address] [place] [address] [email or web address] Manager Respiratory Care 04/28/22 Jaylin Ribeiro, [facility] [address] [place] [address] Rhiannon@[facility] Manager Respiratory Care Oncology 05/12/22 Sabine Harrison, RN [address] [place] [address] JOSÉ [email or web address]@[email or web address] Primary Infusion Nurse 05/19/22 Ivon Cameron RN [address] [place] [phone] [email or web address] Associate Infusion Nurse 05/19/22 Zara Emesron PA-C [address] [place] [address] [place] [address] [email or web address] Physician Geoscience Specialist 06/15/23 Jada Mayfield MD, MPH [address] [place] [phone] [email or web address] Radiation Oncology 06/15/23 documented as of this encounter Additional Source Comments The information contained in this document represents components of the legal health record. It is not the complete legal health record.[facility]
--- OUTSIDE RECORDS SUMMARY | 2025-04-26 15:14 | XMS_ITS | Encounter Summary ---
Author Organization [facility] Address [address] [facility] [address] [place] [address] Phone Care Team Providers Care Solar Energy Advisor Name Role Phone Catalina Gastelum MD Primary Care Provider + [phone] Quin Barragan ALLOY WEIGHER Unavailable +[phone] Jaylin Ribeiro ALLOY WEIGHER Unavailable [phone] Sabine Harrison RN Unavailable MICHELLE [email or web address]. vIon Vitale RN Unavailable Oralia [email or web address] [facility] Zara Emerson PA-C Unavailable + Jada Mayfield MD, MPH Unavailable + [phone] Encounter Details Date Type Department Care Team (Late st Contact Info) Description 12/07/2023 Procedure Pass Trudy Lank Imaging Department, [facility] [place], [place] [address] [facility], Floor [address] [place] [address] Social History Tobacco Use Types Packs/Day Years [...] 10:20 AM EST Blood Draw Laboratory Services, [address], 2nd [place] [address] Reid Muhammad MD [address] [place] [phone] [email or web address] 09/13/2025 11:00 AM EST Office Visit [facility], [address], [address] [place] [address] Derrick Munoz MD [address] [place] [phone] Olegario@[email or web address] 03/21/2026 1:00 PM EDT Office Visit [facility], [address], [address] [place] [address] Andres Banks MD, PhD [address] [place] [phone] [email or web address]@[facility] documented as of this encounter Visit Diagnoses Not on filedocumented in this encounter Care Teams Solar Energy Advisor Relationship Specialty Start Date End Date Catalina Gastelum MD PCP - General Internal Medicine 04/09/22 Quin Barragan, [address] [address] Shira@[email or web address] Spooler Operator Automatic 04/28/22 Jaylin Ribeiro, [address] [address] [email or web address] Spooler Operator Automatic Oncology 05/12/22 Sabine Harrison, ALY [address] [place] [address] JOSÉ [email or web address]@[email or web address] Primary Infusion Nurse 05/19/22 Ivon Cameron RN [address] [place] [address] [email or web address] Associate Infusion Nurse 05/19/22 Zara Emerson PA-C [address] [place] [address] [email or web address] Physician Medical Claims Assistant 06/15/23 Jada Mayfield MD, MPH [address] [place] [phone] [email or web address] Radiation Oncology 06/15/23 documented as of this encounter Additional Source Comments The information contained in this document represents components of the legal health record. It is not the complete legal health record.[facility]
--- OUTSIDE RECORDS SUMMARY | 2025-04-26 15:14 | XMS_ITS | Encounter Summary ---
Author Organization [facility] Address [address] [facility] [address] [place] [address] Phone Care Team Providers Care Front End Alignment Specialist Name Role Phone Catalina Gastelum MD Primary Care Provider + [phone] Quin Barragan BUZZSAW OPERATOR Unavailable [phone] Jaylin Ribeiro BUZZSAW OPERATOR Unavailable [phone] Sabine Harrison RN Unavailable MICHELLE [email or web address]. Ivon Vitale RN Unavailable Oralia [email or web address] Zara Emerson PA-C Unavailable + Jada Mayfield MD, MPH Unavailable + [phone] Encounter Details Date Type Department Care Team (Late st Contact Info) Description 06/03/2022 Prep for Surgery [facility] [address] [address] Nery Campbell PA-C [address] [place] [address] [email or web address] Social History Tobacco Use Types Packs/Day Years [...] n file documented as of this encounter H&P Notes * Nery Campbell PA-C - 06/03/2022 5:19 PM EDT [facility] Metabolic Support Service Phone Screen NAME: Tyler Alexander Date: 06/03/2022 Time: 5:24 PM : 1950 Service Requesting Consult: No service for patient encounter. Referring Attending: No att. providers found Metabolic Support Service Attending Surgeon: Dr. Kiara Lepe Planned Procedure: PEG Tube Insertion Diagnosis for Procedure: SCC of the base of tongue Indication for Procedure: Head/Neck Cancer HPI: Anu Alexander is a 71 y.o. 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 Currently receiving weekly cisplatin and XRT. [facility] has been consulted for PEG placement for enteral access. COVID testing: Lab Results Component Value Date SARSCOV2 SARS-CoV-2 not detected 06/02/2022 Medications Anticoagulation: None. Current Outpatient Medications Ordered in Epic Medication Sig ??? acetaminophen (TYLENOL) 325 mg tablet Take 2 tablets (650 mg total) by mouth every 6 (six) hours as needed for mild pain. ??? aspirin 325 MG EC tablet Take 1 tablet (325 mg total) by mouth daily. Please resume aspirin tomorrow, 04/21. ??? cholecalciferol (VITAMIN D3) 25 MCG (1,000 unit) tablet Take 1,000 Units by mouth 2 (two) timesa day. ??? clorazepate (TRANXENE) 7.5 MG tablet Take 7.5 mg by mouth 3 (three) times a day as needed. ??? dexAMETHasone (DECADRON) 4 MG tablet Take 2 tablets (8 mg total) by mouth as directed. Take 2 tablets twice a day for 3 days after each chemo ??? esomeprazole (NEXIUM) 20 MG capsule Take 20 mg by mouth daily before breakfast. ??? FIBER-CAPS, PSYLLIUM HUSK, ORAL ??? Lactobacillus acidophilus (PROBIOTIC) 10 billion cell Cap ??? levothyroxine (SYNTHROID, LEVOTHROID) 125 MCG tablet Take 125 mcg by mouth every morning. ??? bwwmofios-vbknsgvynlxmqko-wpyl-mag-simethicone (MAGIC MOUTHWASH-BLM) 11-513-016-40 mg/30mL suspension Swish and spit 10 mL every 4 (four) hours as needed (oral pain). Swish for 1-2 minutes and spit, or apply directly to painful areas ??? metoclopramide HCl (REGLAN) 10 MG tablet Take 1 tablet (10 mg total) by mouth 4 (four) times a day as needed for nausea or vomiting. Follow provided calendar ??? nicotine (NICODERM CQ) 21 mg/[address] 1 patch onto the skin daily. ??? nystatin (MYCOSTATIN) 100,000 units/mL suspension Take 5 mL (500,000 Units total) by mouth 4 (four) times a day. ??? ondansetron (ZOFRAN) 8 MG tablet Take 1 tablet (8 mg total) by mouth every 8 (eight) hours as needed for nausea. Follow provided calendar ??? oxyCODONE 5 MG immediate release tablet Take 1 tablet (5 mg total) by mouth every 4 (four) hours as needed for moderate pain. Partial fill ok (Patient not taking: Reported on 05/28/2022) ??? polyethylene glycol (MIRALAX) 17 gram/dose powder Take 17 g by mouth as needed. Indications: constipation ??? QUEtiapine (SEROQUEL) 25 MG tablet Take 12.5-25 mg by mouth 4 (four) times a day as needed. ??? senna (SENOKOT) 8.6 mg tablet Take 1 tablet by mouth 2 (two) times a day as needed for constipation. Take as needed for constipation Allergies Allergies Allergen Reactions ??? Penicillin Anaphylaxis, Dizziness, Fever, Flushing, Hives, Lightheadedness, Palpitations, Rash,Shortness Of Breath and Swelling ??? Avelox [Moxifloxacin] ??? Flagyl [Metronidazole] ??? Penicillins Labs CBC: Recent Labs 06/02/22 1304 WBC 9.37* HGB 13.3 HCT 37.1 PLT 296 BMP: Recent Labs 06/02/22 1304 NA 134* K 3.5 CL 96* CO2 24 BUN 9 CRE 0.50 GLU 97 MG 2.3 CA 9.4 COAGS: 05/26/22 1217 PT 0.9 INR 11.9 Vitals Ht 1.495 m (4' 11 ) Wt 46.8 kg (103 lb) BMI 20.94 kg/m2 LMP: >20 years ago Any possibility of being ? No Past Medical History Questionnaire -Are you a Jehovah???s Witness? No -Have you ever had a heart attack? No -Have you ever had an irregular heart rhythm? No -Have you ever had heart failure? No -Have you ever had angina? No -Do you have high blood pressure? No -Have you ever had heart surgery or any other heart procedure such as a heart catheterization? No -Have you ever had asthma or wheezing? No -Have you taken any medication for asthma in the last month? No -Do you get short of breath walking on flat ground? No -Do you have emphysema or chronic bronchitis? No -Do you have Sleep Apnea? No -Have you ever had kidney failure? No -Have you ever had diabetes? No -Have you ever had a serious liver problem? No -Have you ever had ascites or fluid in your abdomen from liver disease? No -Do you have gastroesophageal reflux disease? Yes -Have you ever been told that you have a hiatal hernia? Yes -Have you ever had an upper gastrointestinal tract study? No -Have you ever had a feeding tube? No -Have you ever had any abdominal surgeries? Yes - cholecystectomy -Do you have any problems with low platelets or bleeding? No -Do you have sickle cell disease or hemophilia? No -Have you ever had a blood clot in your leg or lung? No -Have you ever had a stroke or mini-stroke? No -Have you ever had any problems with anesthesia? No -Has any blood relative ever had problems with anesthesia? No Additional Comments: None. Preoperative Instructions Pre-operative instructions provided to patient including medications, surgery time confirmation (nothing to eat or drink after midnight), dietary restrictions, skin prep as needed and DOS reporting location. Postoperative Education Postoperative education was reviewed with anticipated course of events including anticipated lengthof stay or plan for escort and transportation home as indicated. Nery Campbell PA-C Metabolic Support Service [facility] Office [phone] Pager [phone] documented in this encounter Plan of Treatment Upcoming Encounters Date Type Department Care Team (Late st Contact Info) Description 09/13/2025 10:20 AM EST Blood Draw Laboratory Services, [address], 2nd [place] [address] Reid Muhammad MD [address] [place] [phone] [email or web address] 09/13/2025 11:00 AM EST Office Visit [facility], [address], [address] [place] [address] Derrick Munoz MD [address] [place] [phone] [email or web address] 03/21/2026 1:00 PM EDT Office Visit [facility], [address], [address] [place] [address] Andres Banks MD, PhD [address] [place] [phone] [email or web address]@[facility] documented as of this encounter Visit Diagnoses Not on filedocumented in this encounter Care Teams Front End Alignment Specialist Relationship Specialty Start Date End Date Catalina Gastelum MD PCP - General Internal Medicine 04/09/22 Quin Barragan [address] [address] Shira@[email or web address] Vegetable Buncher 04/28/22 Jaylin Ribeiro, [address] [address] [email or web address]@[email or web address] Vegetable Buncher Oncology 05/12/22 Sabine Harrison, RN [address] [place] [phone] JOSÉ [email or web address]@[email or web address] Primary Infusion Nurse 05/19/22 Ivon Cameron, RN [address] [place] [phone] [email or web address]@[email or web address] Associate Infusion Nurse 05/19/22 Zara Emerson PA-C [address] [place] [phone] [email or web address] Physician Ambulance Dispatcher 06/15/23 Jada Mayfield MD, MPH [address] [place] [phone] [email or web address] Radiation Oncology 06/15/23 documented as of this encounter Additional Source Comments The information contained in this document represents components of the legal health record. It is not the complete legal health record.[facility]
--- OUTSIDE RECORDS SUMMARY | 2025-04-26 15:14 | XMS_ITS | Encounter Summary ---
Author Organization [facility] Address [address] [facility] [address] [place] [address] Phone Care Team Providers Care Jalousies Installer Name Role Phone Catalina Gastelum MD Primary Care Provider + [phone] Quin Barragan SHEET METAL OPERATOR Unavailable [phone] Jaylin Ribeiro SHEET METAL OPERATOR Unavailable [phone] Sabine Harrison RN Unavailable MICHELLE [email or web address] Ivon Vitale RN Unavailable Oralia [email or web address] Zara Emerson PA-C Unavailable + Jada Mayfield MD, MPH Unavailable + [phone] Encounter Details Date Type Department Care Team (Late st Contact Info) Description 07/23/2022 Procedure Pass [facility] [address] [place] [address] Social History Tobacco Use Types Packs/Day Years [...] n file documented as of this encounter Functional Status * Calculated C-SSRS Risk Score (Lifetime/Recent) Answer Date of Assessment Author No Risk Indicated 07/23/2022 10:28 PM Reid Espinoza, ALY * Tucker Suicide Severity Rating Scale (Screener/Recent Self-Report) Question Answer Date of Assessment Author 1. Wish to be (Past 1 Month) No 07/23/2022 10:28 PM Reid Matamoros, ALY 2. Non-Specific Active Suicidal Thoughts (Past 1 Month) No 07/23/2022 10:28 PM Reid Matamoros RN 6. Suicidal Behavior (Lifetime) No 07/23/2022 10:28 PM Reid Matamoros RN documented as of this encounter Plan of Treatment Upcoming Encounters Date Type Department Care Team (Late st Contact Info) Description 09/13/2025 10:20 AM EST Blood Draw Laboratory Services, [address], [address] [place] [address] Reid Muhammad MD [address] [place] [phone] [email or web address] 09/13/2025 11:00 AM EST Office Visit [facility], [address], [address] [place] [address] Derrick Munoz MD [address] [place] [phone] Olegario@[facility] 03/21/2026 1:00 PM EDT Office Visit [facility], [address], [address] [place] [address] Andres Banks MD, PhD [address] [place] [phone] Smita@[facility] documented as of this encounter Visit Diagnoses Not on filedocumented in this encounter Care Teams Jalousies Installer Relationship Specialty Start Date End Date Catalina Gastelum MD PCP - General Internal Medicine 04/09/22 Quin Barragan, [address] [address] Shira@[facility] Sales Planning Coordinator 04/28/22 Jaylin Ribeiro, [address] [address] Rhiannon@[facility] Sales Planning Coordinator Oncology 05/12/22 Sabine Harrison, RN [address] [place] [address] JOSÉ MIGUEL@[facility] Primary Infusion Nurse 05/19/22 Ivon Cameron, RN [address] [place] [phone] [email or web address]@[email or web address] Associate Infusion Nurse 05/19/22 Zara Emerson PA-C [address] [place] [phone] [email or web address] Physician Enrollment Management Director 06/15/23 Jada Mayfield MD, MPH [address] [place] [phone] [email or web address] Radiation Oncology 06/15/23 documented as of this encounter Additional Source Comments The information contained in this document represents components of the legal health record. It is not the complete legal health record.[facility]
--- OUTSIDE RECORDS SUMMARY | 2025-04-26 15:14 | XMS_ITS | Encounter Summary ---
Author Organization [facility] Address [address] [facility] [address] [place] [address] Phone Care Team Providers Care Mortgage Protection Specialist Name Role Phone Catalina Gastelum MD Primary Care Provider + [phone] Quin Barragan PARKS AND RECREATION WORKER Unavailable +[phone] Jaylin Ribeiro PARKS AND RECREATION WORKER Unavailable [phone] Sabine Harrison RN Unavailable [email or web address] [email or web address]. Ivon Vitale RN Unavailable Oralia [email or web address] Zara Emerson PA-C Unavailable + Jada Mayfield MD, MPH Unavailable + [phone] Encounter Details Date Type Department Care Team (Late st Contact Info) Description 10/01/2022 Telephone [facility], [facility] [address] [place] [address], 11th [place] [address] Evan Vigil, RN [address] [place] [phone] Braydon@[email or web address] Social History Tobacco Use Types Packs/Day Years [...] 10:20 AM EST Blood Draw Laboratory Services, [address] [place] [address] Reid Muhammad MD [address] [place] [phone] [email or web address] 09/13/2025 11:00 AM EST Office Visit [facility], [address], [address] [place] [address] Derrick Munoz MD [address] [place] [phone] Olegario@[email or web address] 03/21/2026 1:00 PM EDT Office Visit [facility], [address], [address] [place] [address] Andres Banks MD, PhD [address] [place] [phone] [email or web address]@[facility] documented as of this encounter Visit Diagnoses Not on filedocumented in this encounter Care Teams Mortgage Protection Specialist Relationship Specialty Start Date End Date Catalina Gastelum MD PCP - General Internal Medicine 04/09/22 Quin Barragan LICSW [address] [place] [address] Shira@[facility] Customer Accounts Advisor 04/28/22 Jaylin Ribeiro, [address] [address] TamirCatrachoAnne [email or web address] Customer Accounts Advisor Oncology 05/12/22 Sabine Harrison, RN [address] [place] [phone] JOSÉ [email or web address]@[email or web address] Primary Infusion Nurse 05/19/22 Ivon Cameron RN [address] [place] [phone] Marquez@[facility] Associate Infusion Nurse 05/19/22 Zara Emerson PA-C [address] [place] [address] [place] [address] [email or web address] Physician Shopping Centre Manager 06/15/23 Jada Mayfield MD, MPH [address] [place] [phone] [email or web address] Radiation Oncology 06/15/23 documented as of this encounter Additional Source Comments The information contained in this document represents components of the legal health record. It is not the complete legal health record.[facility]
--- OUTSIDE RECORDS SUMMARY | 2025-04-26 15:14 | XMS_ITS | Encounter Summary ---
Author Organization [facility] Address [address] [place] [address] Phone Care Team Providers Care Counter Former Name Role Phone Catalina Gastelum MD Primary Care Provider + [phone] Quin Barragan HOT STRIP FINISHER Unavailable [phone] Jaylin Ribeiro HOT STRIP FINISHER Unavailable [phone] Sabine Harrison RN Unavailable [email or web address]. Ivon Vitale RN Unavailable Oralia [email or web address] Zara Emerson PA-C Unavailable + Jada Mayfield MD, MPH Unavailable + [phone] Encounter Details Date Type Department Care Team (Late st Contact Info) Description 06/04/2022 Procedure Pass [facility] Periop [address] [place] [address] Social History Tobacco Use Types Packs/Day Years [...] 10:20 AM EST Blood Draw Laboratory Services, [address], [address] [place] [address] Reid Muhammad MD [address] [place] [phone] [email or web address] 09/13/2025 11:00 AM EST Office Visit [facility], [address], [address] [place] [address] Derrick Munoz MD [address] [place] [phone] [email or web address] 03/21/2026 1:00 PM EDT Office Visit [facility], [address], [address] [place] [address] Andres Banks MD, PhD [address] [place] [phone] [email or web address]@[email or web address] documented as of this encounter Visit Diagnoses Not on filedocumented in this encounter Care Teams Counter Former Relationship Specialty Start Date End Date Catalina Gastelum MD PCP - General Internal Medicine 04/09/22 Quin Barragan HOT STRIP FINISHER [address] [place] [phone] [email or web address] Pocket Cutter 04/28/22 Jaylin Ribeiro, [address] [address] [email or web address] Pocket Cutter Oncology 05/12/22 Sabine Harrison, ALY [address] [place] [address] JOSÉ [email or web address] Primary Infusion Nurse 05/19/22 Ivon Cameron RN [address] [place] [address] [email or web address] Associate Infusion Nurse 05/19/22 Zara Emerson PA-C [address] [place] [address] and [facility] [place] [address] [email or web address] Physician Direct Care Provider 06/15/23 Jada May[place] MD, MPH [address] [place] [address] [email or web address] Radiation Oncology 06/15/23 documented as of this encounter Additional Source Comments The information contained in this document represents components of the legal health record. It is not the complete legal health record.[facility]
--- OUTSIDE RECORDS SUMMARY | 2025-04-26 15:14 | XMS_ITS | Clinical Summary ---
Author Organization [facility] Address [address] [place] [address] Phone Care Team Providers Care Operations Support Manager Name Role Phone Catalina Gastelum MD Primary Care Provider + [phone] Quin Barragan DISPATCH CLERK Unavailable [phone] Jaylin Ribeiro DISPATCH CLERK Unavailable [phone] Sabine Harrison RN Unavailable [email or web address] Ivon Vitale RN Unavailable Oralia [email or web address] Zara Emerson PA-C Unavailable + Jada May[place] MD, MPH Unavailable +- [phone] Allergies Active Allergy Reactions Criticality Noted Date Comments Moxifloxacin 04/08/2022 Metronidazole 04/08/2022 Penicillin Anaphylaxis,Dizzines s,Fever,Flushing,H iban,Lightheadedness,Palpitations,Rash ,Shortness Of Breath,Swelling High 11/21/2012 Penicillins 04/08/2022 Medications levothyroxine (SYNTHROID, LEVOTHROID) 125 MCG tablet Take 125 mcg by mouth every morning. Active nicotine (NICODERM CQ) 21 mg/[address] 1 patch onto the skin daily. Active metoclopramide HCl (REGLAN) 10 MG tablet Take 1 tablet (10 mg total) by mouth every 6 (six) hours as needed for nausea. 30 tablet 3 07/27/2022 Active polyethylene glycol (MIRALAX) 17 gram packet Take 17 g by mouth daily. Hold if loose stools 07/28/2022 Active sennosides 8.8 mg/5 mL Syrp Take 10 mL (17.6 mg total) by mouth daily. Hold if loose stools 236 mL 3 07/28/2022 Active diphenhydramine -lidocaine-alum -mag-simethicon e (MAGIC MOUTHWASH-BLM) 54-914-103-40 mg/30mL suspension Swish and spit 10 mL every 4 (four) hours as needed (oral pain). Swish for 1-2 minutes and spit, or apply directly to painful areas 500 mL 3 10/01/2022 Active Active Problems Problem Noted Date Diagnosed Date [...] if unable to do this by mouth. TECHNICAL ARTIST Support: As needed Emotional: Coping well Assessment [...] if unable to do this by mouth. TECHNICAL ARTIST Support: As needed Emotional: Coping well Assessment [...] if unable to do this by mouth. TECHNICAL ARTIST Support: As needed Emotional: Coping well Assessment [...] if unable to do this by mouth. TECHNICAL ARTIST Support: As needed Emotional: Coping well Assessment [...] if unable to do this by mouth. TECHNICAL ARTIST Support: As needed Emotional: Coping well Assessment & Plan (06/13/2022 9:19 PM EDT): Treatment: Weekly Cisplatin + XRT OK to continue treatment today: C1 D22 Pain Management: Acetaminophen Nausea Management: Metoclopramide, Ondansetron, Dexamethasone and Lorazepam Bowel Regimen: Colace and Senna Oral Care / Dental Hygiene: Oral rinses as indicated Nutritional Support: Tolerating full oral diet. Weight is down. TECHNICAL ARTIST Support: As needed Emotional: Coping well Assessment [...] Tolerating full oral diet. Weight is down. TECHNICAL ARTIST Support: As needed Emotional: Coping well Assessment [...] Tolerating full oral diet. Weight is down. 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) from Last 3 Months Immunizations Immunization Administration Dates Next Due Influenza High-Dose Quadriva lent Preservative Free IM 07/27/2022(Deferred: Patient Refused) Pneumococcal conjugate PCV13 08/25/2019 Social History Tobacco Use Types Packs/Day Years [...] Not on file Not o n file Last Filed Vital Signs Vital Sign Reading Time Taken Comments Blood Pressure 121/61 03/22/2025 12:07 PM EDT Pulse 67 03/22/2025 12:07 PM EDT Temperature 36.9 C (98.5 F) 03/22/2025 12:06 PM EDT Respiratory Rate 16 03/22/2025 12:02 PM EDT Oxygen Saturation 100% 03/22/2025 12:07 PM EDT Inhaled Oxygen Concentration - - Weight 45.7 kg (100 lb 12 oz) 03/22/2025 12:02 P M EDT Height 149.7 cm (4' 10.94 ) 12/05/2024 1:02 PM E DT Body Mass Index 20.39 12/05/2024 1:02 PM EDT Plan of Treatment Upcoming Encounters Date Type Department Care Team (Late st Contact Info) Description 09/13/2025 10:20 AM EST Blood Draw Laboratory Services, [address], [address] [place] [address] Reid Muhammad MD [address] [place] [phone] [email or web address] 09/13/2025 11:00 AM EST Office Visit [facility], [address], [address] [place] [address] Derrick Munoz MD [address] [place] [phone] [email or web address] 03/21/2026 1:00 PM EDT Office Visit [facility], [address], [address] [place] [address] Andres Banks MD, PhD [address] [place] [address] [email or web address]@[email or web address] Health Maintenance Due Date Last Done Comments LIPID PANEL 1952 DEPRESSION SCREENING 1964 SMOKING Hx and SMOKELESS TOBACCO SCREENING 1965 HEPATITIS C SCREENING 1970 ZOSTER VACCINES (1 of 2) 1971 MAMMOGRAM 1992 COLOGUARD 1997 COLONOSCOPY 1997 COLORECTAL CANCER SCREENING 1997 FIT TEST 1997 FOBT 1997 SIGMOIDOSCOPY 1997 VIRTUAL COLONOSCOPY 1997 OSTEOPOROSIS SCREENING INITI AL (ONE-TIME) 2017 PNEUMOCOCCAL VACCINES (50+ years) (2 of 2 - PPSV23) 10/20/2019 08/25/2019 TSH LEVEL 10/29/2023 10/28/2022, 07/26/2022 COVID-19 VACCINE (2 - 2023-2 5 season) 2024 03/27/2021 RSV VACCINE (1 - 1-dose 75+ series) 2027 Adult Td,Tdap Booster 11/01/2029 11/02/2019 HEPATITIS A VACCINES Aged Out No long er eligible based on patient's age to complete this topic HIB VACCINES Aged Out No longer eligi ble based on patient's age to complete this topic MENINGOCOCCAL VACCINES (ACWY) Aged Out No longer eligible based on patient's age to complete this topic MENINGOCOCCAL VACCINES (B) Aged Out N o longer eligible based on patient's age to complete this topic Medical Devices Not on file Procedures Procedure Name Priority Date/Time Associated Diagnosis Comments TSH Routine 10/28/2022 9:40 AM EST 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 from Last 3 Months or Most Recently Relevant to Health Maintenance Results * (ABNORMAL) TSH (10/28/2022 9:40 AM EST) TSH 9.71(H) 0.27 - 4.20 uIU/mL [facility] LIC# [id number] Blood 10/28/2022 9:40 AM EST 10/28/2022 9:59 AM EST us Derrick Munoz MD LAB BLOOD ORDERABLES Final Re sult [facility] LIC# [id number] [address] [place] [address] from Last 3 Months or Most Recently Relevant to Health Maintenance Insurance [facility] MEDICARE HMO BLUE REPLACEMENT B MEDICARE HMO BLUE [place] [address] [place] [address] [employer] [facility] MEDICARE HMO BLUE REPLACEMENT [facility] MEDICARE HMO [facility]UE RE[facility] MEDICARE HMO BLUE REPLACEMENT [facility] MEDICARE HMO BLUE REPLACEMENT MEDICARE CLINICAL TRIAL RESTRICTED USE Advance Directives For more information, please contact: [phone] (9AM - 5PM [facility], Wednesday-Wednesday) Documents on File Type Date Recorded Patient Clinical Nurse Manager Expl anation Healthcare Proxy 07/29/2022 4:34 PM * Full Code (Latest Code Status on File) Date Activated Date Inactivated Comments 07/26/2022 10:30 AM Question Answer Comments Code Status Confirmed With: Patient Care Teams Operations Support Manager Relationship Specialty Start Date End Date Catalina Gastelum MD PCP - General Internal Medicine 04/09/22 Quin Barragan LICSW [address] [place] [address] [email or web address] Manager Urology 04/28/22 Jaylin Ribeiro LICSW [address] [place] [address] [email or web address] Manager Urology Oncology 05/12/22 Sabine Harrison, ALY [address] [place] [address] JOSÉ [email or web address] Primary Infusion Nurse 05/19/22 Ivon Cameron RN [address] [place] [address] [email or web address] Associate Infusion Nurse 05/19/22 Zara Emerson PA-C [address] [place] [phone] [email or web address] Physician Laborer [place] 06/15/23 Jada [place] MD, MPH [address] [place] [phone] [email or web address] Radiation Oncology 06/15/23 Additional Source Comments The information contained in this document represents components of the legal health record. It is not the complete legal health record.[facility]
--- OUTSIDE RECORDS SUMMARY | 2025-04-26 15:14 | XMS_ITS | Encounter Summary ---
Author Organization [facility] Address [address] [place] [address] Phone Care Team Providers Care Legal Records Manager Name Role Phone Catalina Gastelum MD Primary Care Provider + [phone] Quin Barragan CURATORIAL SPECIALIST Unavailable [phone] Jaylin Ribeiro CURATORIAL SPECIALIST Unavailable [phone] Sabine Harrison RN Unavailable [email or web address]. Ivon Vitale RN Unavailable Oralia [email or web address] Zara Emerson PA-C Unavailable + Jada [place] MD, MPH Unavailable +- [phone] Encounter Details Date Type Department Care Team (Late st Contact Info) Description 09/29/2022 Procedure Pass [facility], [facility], PET/CT [address] [place] [address] Social History Tobacco Use Types Packs/Day Years [...] AM EST Blood Draw Laboratory Services, [address], [address] [place] [address] Reid Muhammad MD [address] [place] [phone] [email or web address] 09/13/2025 11:00 AM EST Office Visit [facility], [address], [place] [address] Derrick Munoz MD [address] [place] [phone] Olegario@[email or web address] 03/21/2026 1:00 PM EDT Office Visit [facility], [address], [address] [place] [address] Andres Banks MD, PhD [address] [place] [address] [email or web address]@[email or web address] documented as of this encounter Visit Diagnoses Not on filedocumented in this encounter Care Teams Legal Records Manager Relationship Specialty Start Date End Date Catalina Gastelum MD PCP - General Internal Medicine 04/09/22 Quin Barragan LICSW [address] [place] [address] [email or web address] Costing Manager 04/28/22 Jaylin Ribeiro, [facility] [address] [place] [address] [email or web address] Costing Manager Oncology 05/12/22 Sabine Harrison, RN [address] [place] [address] JOSÉ [email or web address] Primary Infusion Nurse 05/19/22 Ivon Cameron, ALY [address] [place] [address] Marquez@[email or web address] Associate Infusion Nurse 05/19/22 Zara Emerson PA-C [address] [place] [address] and [facility] [place], [place] [email or web address] Physician Oil Expert 06/15/23 Jada [place] MD, MPH [address] [place] [phone] [email or web address] Radiation Oncology 06/15/23 documented as of this encounter Additional Source Comments The information contained in this document represents components of the legal health record. It is not the complete legal health record.[facility]
--- OUTSIDE RECORDS SUMMARY | 2025-04-26 15:14 | XMS_ITS | Encounter Summary ---
Author Organization [facility] Address [address] [place] [address] Phone Care Team Providers Care Washing And Screening Plant Supervisor Name Role Phone Catalina Gastelum MD Primary Care Provider + [phone] Quin Barragan WHEAT INSPECTOR Unavailable [phone] Jaylin Ribeiro WHEAT INSPECTOR Unavailable [phone] Sabine Harrison RN Unavailable [email or web address] Ivon Vitale RN Unavailable Oralia [email or web address] Zara Emerson PA-C Unavailable + Jada [place] MD, MPH Unavailable + [phone] Encounter Details Date Type Department Care Team (Late st Contact Info) Description 06/03/2022 Prep for Surgery [facility] [address] [address] Nery Campbell PA-C [address] [place] [phone] [email or web address] Social History Tobacco Use Types Packs/Day [...] 10:20 AM EST Blood Draw Laboratory Services, [address] [place] [address] Reid Muhammad MD [address] [place] [phone] [email or web address] 09/13/2025 11:00 AM EST Office Visit [facility], [address], [address] [place] [address] Derrick Munoz MD [address] [place] [phone] Olegario@[email or web address] 03/21/2026 1:00 PM EDT Office Visit [facility], [address], [address] [place] [address] Andres Banks MD, PhD [address] [place] [phone] [email or web address]@[email or web address] documented as of this encounter Visit Diagnoses Not on filedocumented in this encounter Care Teams Washing And Screening Plant Supervisor Relationship Specialty Start Date End Date Catalina Gastelum MD PCP - General Internal Medicine 04/09/22 Quin Barragan, [address] [address] Shira@[email or web address] Printer Machine 04/28/22 Jaylin Ribeiro, [address] [address] [email or web address] Printer Machine Oncology 05/12/22 Sabine Harrison, RN [address] [place] [address] JOSÉ [email or web address] Primary Infusion Nurse 05/19/22 Ivon Cameron RN [address] [place] [address] [email or web address] Associate Infusion Nurse 05/19/22 Zara Emesron PA-C [address] [place] [address] [place] [address] [email or web address] Physician Cotton Candy Maker 06/15/23 Jada [place] MD, MPH [address] [place] [phone] [email or web address] Radiation Oncology 06/15/23 documented as of this encounter Additional Source Comments The information contained in this document represents components of the legal health record. It is not the complete legal health record.[facility]
== END 2025-04-26 16:23 | disposition home or self-care (01) ==
LOC: HO.HOP 13:59
PROVIDERS: PCP Internal Medicine; Visit Provider Clinical Nurse Specialist Psychiatric/Mental Health, Adult
DX: F41.1 Generalized anxiety disorder (principal); F33.41 Major depressive disorder, recurrent, in partial remission; F39 Unspecified mood [affective] disorder
CPT/HCPCS: 99213

== ENCOUNTER → 2025-04-26 13:59 | Outpatient (BNVA) | payer MEDICARE, MEDICAID, SELFPAY | PROVIDERS: PCP Internal Medicine; Visit Provider Clinical Nurse Specialist Psychiatric/Mental Health, Adult | DX: F41.1 Generalized anxiety disorder (principal); F33.41 Major depressive disorder, recurrent, in partial remission; F39 Unspecified mood [affective] disorder | CPT/HCPCS: 99212 ==

== ENCOUNTER 2025-05-02 14:04 | Outpatient (AMB) | payer MEDICARE, MEDICAID, SELFPAY ==
--- NOTE | 2025-05-02 15:36 | MHC.OFFVISPS ---
Intake Intake Visit Reasons: f/u consultation Intake Note: 05/02/25 PHQ-9 23 JENELLE-7 20 Product Safety Compliance Leader Required: No Allergies metronidazole (From Flagyl) Allergy (Unknown, Verified 01/09/25 11:00) Unknown moxifloxacin (From Avelox) Allergy (Unknown, Verified 01/09/25 11:00) Unknown penicillin G Allergy (Unknown, Verified 01/09/25 11:00) Unknown Medication List - Last Reconciled 05/02/25 by Florence Ojeda APRN aspirin (Adult Low Dose Aspirin) 81 mg PO DAILY clorazepate dipotassium 7.5 mg PO QID esomeprazole magnesium (Nexium 24HR) 20 mg PO DAILY fluconazole 150 mg PO DAILY fluoride (sodium) 1.1% PO BID lactobacillus combination no.4 (Probiotic) 3,000 mmu cells PO DAILY lamotrigine (Lamictal) 50 mg (2 x 25 mg) PO DAILY 14 days levothyroxine 137 mcg PO DAILY mirtazapine orally AT BEDTIME; take one to two tablets at bedtime polyethylene glycol 3350 (Miralax) 17 grams PO DAILY psyllium husk (Daily Fiber) 0.4 grams PO DAILY quetiapine 25 mg PO QID 90 days sennosides (Natural Senna Laxative) 8.6 mg PO DAILY sertraline 25 mg PO DAILY HPI- Psychiatric Chief Complaint: f/u consultation HPI Narrative: Pt reports she is not using Olanzapine. Lamictal is somewhat helpful-decreasing the intensity of the panic sx Several stressors for Anu including sister's discharge from the hospital, coming to live with pt and needing to return to the hospital yesterday, son is struggling-having returned to drinking and gambling. Pt reports his tenant reported him to police along with her and they were served on Wednesday for a court date for taking tenants belongings. Pt also treated yesterday for an infection in her tooth. Finances continue to be a major stress for both pt and son. Discussed with pt referral for psychotherapy. She refuses at this time. At this time she reports compliance with clorazepate, lamictal, seroquel. Past Psychiatric History: Trials: Sertraline, Seroquel, Mirtazapine Subjective Subjective Subjective Medication Compliance: Intermittent Side effects from medications: No Review of Systems Medical Review of Systems: unchanged Review of Systems Review of Systems tooth infection Mental Status Exam Mental Status Exam Patient Appearance: Appropriate Patient Orientation: Person, Place, Time and Situation Level of Consciousness: Alert Patient Behavior: Talkative Mood Description: Anxious Affect Description: Anxious Patient Cognition Impaired: No Ability to Follow Directions: Good Speech Pattern: Spontaneous Speech Memory Description: Intact Hallucinations: None Delusions: Not Present Thought Process: Intact and Goal Oriented Thought Content: positive for Intact and positive for Goal Oriented Depressive Symptoms: Increased Anxiety and Thoughts of /Suicide (denies) Judgement: Good Assessment and Plan Assessment & Plan (1) Generalized anxiety disorder: Status: Acute Code(s): F41.1 - Generalized anxiety disorder (2) Depression: Status: Acute Qualifiers: Depression Type: major depressive disorder Major depression recurrence: recurrent Active/Remission status: in partial remission Qualified Code(s): F33.41 - Major depressive disorder, recurrent, in partial remission Code(s): F32.A - Depression, unspecified (3) Mood disorder: Status: Acute Code(s): F39 - Unspecified mood [affective] disorder Plan Anu will continue Lamictal. We will follow up in 4-6 weeks to review efficacy. She declines therapy referral at this time. Counseling and coordination of Care Medication management counseling: Effectiveness, Side effects, Dosing range, Duration, Drug interaction and Adherence Details: I spent [] minutes reviewing the record, seeing the patient and documenting in the medical record. Counseling provided to the patient/caregiver as outlined below. Addressed patient/caregiver concerns regarding current medication regime including effective adherence. Addressed patient/caregiver concerns regarding diagnosis and prognosis including accuracy of diagnosis, prognosis over time, impact of diagnosis. Addressed patient/caregiver concerns regarding impact of recent stressors. [facility] Medical History FHx: cholecystectomy Vitamin D deficiency Neck mass Multiple allergies Insomnia Hyperglycemia Hypercholesteremia Hiatal hernia H/O gastroesophageal reflux (GERD) Cervical radiculopathy Anxiety Surgical History History of appendectomy H/O: section Family History Mother Aneurysm HTN (hypertension) Sister Mental disorder Paternal Grandfather Heart attack Social History Alcohol intake: never Patient Tobacco Use Status: Current everyday Tobacco user Cigarette Packs Per Day: 3 Years Smoked: 57 e-Cigarette/Vaping Use: Never Used Second Hand Smoke Exposure: No service: No Current occupational status: retired Cognitive needs: No Hearing needs: Yes (difficulty hearing) Vision needs: Yes (glasses) Social History: Father was a medical chief technician, sister with bipolar disorder and borderline personality. Pt's son is 36, he is my life Substance History: smoker of 57 years Trauma History: affirms Coding Level of Care Code Est Pt Level 3 (17252) Diagnoses Generalized anxiety disorder F41.1 Recurrent major depressive disorder, in partial remission F33.41 Depression Type: major depressive disorder Major depression recurrence: recurrent Active/Remission status: in partial remission Mood disorder F39
--- OUTSIDE RECORDS SUMMARY | 2025-05-02 17:16 | XMS_ITS | Encounter Summary ---
Author Organization [facility] Address [address] [place] [address] Phone Care Team Providers Care Strike Warfare/Missile Systems Officer Name Role Phone Catalina Gastelum MD Primary Care Provider + [phone] Quin Barragan JEWEL BEARING FACER Unavailable +[phone] Jaylin Ribeiro JEWEL BEARING FACER Unavailable +[phone] Sabine Harrison RN Unavailable MICHELLE [email or web address]. Ivon Vitale RN Unavailable Oralia [email or web address] Zara Emerson PA-C Unavailable + Jada Mayfield MD, MPH Unavailable +- [phone] Encounter Details Date Type Department Care Team (Late st Contact Info) Description 09/29/2022 Procedure Pass [facility], [facility], PET/CT [address] [place] [address] Social History Tobacco Use Types Packs/Day Years [...] 10:20 AM EST Blood Draw Laboratory Services, [address], 2nd [place] [address] Reid Muhammad MD [address] [place] [phone] [email or web address] 09/13/2025 11:00 AM EST [facility], [address], [address] [place] [address] Derrick Munoz MD [address] [place] [phone] Olegario@[email or web address] 03/21/2026 1:00 PM EDT Office Visit [facility], [address], [address] [place] [address] Andres Banks MD, PhD [address] [place] [address] [email or web address] documented as of this encounter Visit Diagnoses Not on filedocumented in this encounter Care Teams Strike Warfare/Missile Systems Officer Relationship Specialty Start Date End Date Catalina Gastelum MD PCP - General Internal Medicine 04/09/22 Quin Barragan LICSW [address] [place] [address] [email or web address] Court Operations Clerk 04/28/22 Jaylin Ribeiro, [address] [place] [address] [email or web address]@[facility] Court Operations Clerk Oncology 05/12/22 Sabine Harrison, ALY [address] [place] [address] JOSÉ MIGUEL@[email or web address] Primary Infusion Nurse 05/19/22 Ivon Cameron RN [address] [place] [address] Marquez@[email or web address] Associate Infusion Nurse 05/19/22 Zara Emerson PA-C [address] [place], [place] [address] [address] [email or web address] Physician Heel Dipper 06/15/23 Jada Mayfield MD, MPH [address] [place] [address] [email or web address] Radiation Oncology 06/15/23 documented as of this encounter Additional Source Comments The information contained in this document represents components of the legal health record. It is not the complete legal health record.[facility]
--- OUTSIDE RECORDS SUMMARY | 2025-05-02 17:16 | XMS_ITS | Clinical Summary ---
Author Organization [address] [facility] Address [address] [place] [address] Phone Care Team Providers Care Glass Cutting Machine Feeder Name Role Phone Catalina Paris MD Primary Care Provider Social History Tobacco Use Types Packs/Day Years [...] 09/21/2023 Social Influencers of Health Screening 09/21/2023 Depression Screening 08/23/2024 COVID-19 Vaccine (2023-2 5 season) 2025 Influenza Vaccine (#1) 2025 RSV Immunization Adult [...] age to complete this topic Insurance DR [place] [id number] BL[place]IC[place] Care Teams Glass Cutting Machine Feeder Relationship Specialty Start Date End Date Catalina Paris MD [address] [place] [address] [address] [place] [address] PCP - General 08/07/22
--- OUTSIDE RECORDS SUMMARY | 2025-05-02 17:16 | XMS_ITS | Encounter Summary ---
Author Organization [facility] Address [address] [place] [address] Phone Care Team Providers Care Masonry Contractor Administrator Name Role Phone Catalina Gastelum MD Primary Care Provider + [phone] Quin Barragan ROPE MACHINE SETTER Unavailable +[phone] Jaylin Ribeiro ROPE MACHINE SETTER Unavailable [phone] Sabine Harrison RN Unavailable MICHLELE [email or web address]. Ivon Vitale RN Unavailable Oralia [email or web address] [facility] Zara Emerson PA-C Unavailable + Jada Mayfield MD, MPH Unavailable + [phone] Encounter Details Date Type Department Care Team (Late st Contact Info) Description 06/03/[address] [facility]'s [address] [address] Nery Campbell PA-C [address] [place] [address] [email or web address] Social History Tobacco Use Types Packs/Day [...] Campbell PA-C - 06/03/2022 5:[address] [facility] Metabolic Support Service Phone Screen NAME: [...] adenopathy. Currently receiving weekly cisplatin and XRT. [facility] has been consulted for PEG placement for [...] 125 mcg by mouth every morning. ??? zyawadece-rjmluvpefdfxlxc-zblo-mag-simethicone (MAGIC MOUTHWASH-BLM) 27-118-978-40 mg/30mL suspension Swish and spit 10 mL [...] indicated. Nery Campbell PA-C Metabolic Support Service [facility] Office [phone] Pager [phone] documented in this encounter Plan of Treatment Upcoming Encounters Date Type Department Care Team (Late st Contact Info) Description 09/13/2025 10:20 AM EST Blood Draw Laboratory Services, [address], 2nd [place] [address] Reid Muhammad MD [address] [place] [phone] [email or web address] 09/13/2025 11:00 AM EST Office Visit [facility], [address], [place] [address] Derrick Munoz MD [address] [place] [phone] Olegario@[facility] 03/21/2026 1:00 PM EDT Office Visit [facility], [address], [address] [place] [address] Andres Banks MD, PhD [address] [place] [address] [email or web address] documented as of this encounter Visit Diagnoses Not on filedocumented in this encounter Care Teams Masonry Contractor Administrator Relationship Specialty Start Date End Date Catalina Gastelum MD PCP - General Internal Medicine 04/09/22 Quin Barragan, [address] [address] Shira@[email or web address] Supervisor Cloth Winding 04/28/22 Jaylin Ribeiro, [address] [address] Rhiannon@[facility] Supervisor Cloth Winding Oncology 05/12/22 Sabine Harrison, RN [address] [place] [address] JOSÉ [email or web address]@[email or web address] Primary Infusion Nurse 05/19/22 Ivon Cameron, RN [address] [place] [address] Marquez@[email or web address] Associate Infusion Nurse 05/19/22 Zara Emerson PA-C [address] [place] [address] [email or web address] Physician Oversize Load Pilot Escort 06/15/23 Jada Mayfield MD, MPH [address] [place] [address] [email or web address] Radiation Oncology 06/15/23 documented as of this encounter Additional Source Comments The information contained in this document represents components of the legal health record. It is not the complete legal health record.[facility]
--- OUTSIDE RECORDS SUMMARY | 2025-05-02 17:16 | XMS_ITS | Encounter Summary ---
Author Organization [facility] Address [address] [place] [address] Phone Care Team Providers Care Receiving And Processing Supervisor Name Role Phone Catalina Gastelum MD Primary Care Provider + [phone] Quin Barragan MARINE ELECTRICIAN APPRENTICE Unavailable [phone] Jaylin Ribeiro MARINE ELECTRICIAN APPRENTICE Unavailable +[phone] Sabine Harrison RN Unavailable MICHELLE [email or web address]. Ivon Vitale RN Unavailable Oralia [email or web address] [facility] Zara Emerson PA-C Unavailable + Jada Mayfield MD, MPH Unavailable + [phone] Encounter Details Date Type Department Care Team (Late st Contact Info) Description 06/04/2022 Procedure Pass [facility] Periop [address] [place] [address] Social History Tobacco Use Types Packs/Day Years [...] 10:20 AM EST Blood Draw Laboratory Services, [address], [address] [place] [address] Reid Muhammad MD [address] [place] [phone] [email or web address] 09/13/2025 11:00 AM EST Office Visit [facility], [address], [place] [address] Derrick Munoz MD [address] [place] [phone] Olegario@[email or web address] 03/21/2026 1:00 PM EDT Office Visit [facility], [address], [address] [place] [address] Andres Banks MD, PhD [address] [place] [address] [email or web address] documented as of this encounter Visit Diagnoses Not on filedocumented in this encounter Care Teams Receiving And Processing Supervisor Relationship Specialty Start Date End Date Catalina Gastelum MD PCP - General Internal Medicine 04/09/22 Quin Barragan [address] [address] [email or web address] Communications Lead 04/28/22 Jaylin Ribeiro, [address] [address] Rhiannon@[facility] Communications Lead Oncology 05/12/22 Sabine Harrison, ALY [address] [place] [address] JOSÉ MIGUEL@[facility] Primary Infusion Nurse 05/19/22 Ivon Cameron RN [address] [place] [address] Marquez@[email or web address] Associate Infusion Nurse 05/19/22 Zara Emerson PA-C [address] [place] [address] [email or web address] Physician Aircraft Cabin Cleaner 06/15/23 Jada Mayfield MD, MPH [address] [place] [address] [email or web address] Radiation Oncology 06/15/23 documented as of this encounter Additional Source Comments The information contained in this document represents components of the legal health record. It is not the complete legal health record.[facility]
--- OUTSIDE RECORDS SUMMARY | 2025-05-02 17:16 | XMS_ITS | Encounter Summary ---
Author Organization [facility] Address [address] [place] [address] Phone Care Team Providers Care Hob Mill Operator Name Role Phone Catalina Gastelum MD Primary Care Provider + [phone] Quin Barragan SALES FLOOR TEAM MEMBER Unavailable +[phone] Jaylin Ribeiro SALES FLOOR TEAM MEMBER Unavailable [phone] Sabine Harrison RN Unavailable MICHELLE [email or web address]. Ivon Vitale RN Unavailable Oralia [email or web address]. [facility] Zara Emerson PA-C Unavailable + Jada Mayfield MD, MPH Unavailable + [phone] Encounter Details Date Type Department Care Team (Late st Contact Info) Description 06/03/2022 Prep for Surgery [facility]'s [address] [address] Nery Campbell PA-C [address] [place] [address] [email or web address] Social History Tobacco Use Types Packs/Day [...] 10:20 AM EST Blood Draw Laboratory Services, [address], [address] [place] [address] Reid Muhammad MD [address] [place] [phone] [email or web address] 09/13/2025 11:00 AM EST Office Visit [facility], [address], [address] [place] [address] Derrick Munoz MD [address] [place] [phone] Olegario@[facility] 03/21/2026 1:00 PM EDT Office Visit [facility], [address], [address] [place] [address] Andres Banks MD, PhD [address] [place] [address] documented as of this encounter Visit Diagnoses Not on filedocumented in this encounter Care Teams Hob Mill Operator Relationship Specialty Start Date End Date Catalina Gastelum MD PCP - General Internal Medicine 04/09/22 Quin Barragan, [address] [address] Shira@[email or web address] Club Lounge Attendant 04/28/22 Jaylin Ribeiro, [address] [address] [email or web address]@[email or web address] Club Lounge Attendant Oncology 05/12/22 Sabine Harrison, ALY [address] [place] [address] JOSÉ MIGUEL@[facility] Primary Infusion Nurse 05/19/22 Ivon Cameron RN [address] [place] [address] Marquez@[email or web address] Associate Infusion Nurse 05/19/22 Zara Emerson PA-C [address] [place] [address] [email or web address] Physician Program Support Specialist 06/15/23 Jada Mayfield MD, MPH [address] [place] [address] Francy@[email or web address] Radiation Oncology 06/15/23 documented as of this encounter Additional Source Comments The information contained in this document represents components of the legal health record. It is not the complete legal health record.[facility]
--- OUTSIDE RECORDS SUMMARY | 2025-05-02 17:16 | XMS_ITS | Encounter Summary ---
Author Organization [facility] Address [address] [place] [address] Phone Care Team Providers Care Sugar Cane Grower Name Role Phone Catalina Gastelum MD Primary Care Provider + [phone] Quin Barragan POST EXCHANGE MANAGER Unavailable +[phone] Jaylin Ribeiro POST EXCHANGE MANAGER Unavailable +[phone] Sabine Harrison RN Unavailable MICHELLE [email or web address]@[email or web address]. Ivon Vitale RN Unavailable Oralia [email or web address] [facility] Zara Emerson PA-C Unavailable + Jada Mayfield MD, MPH Unavailable + [phone] Encounter Details Date Type Department Care Team (Late st Contact Info) Description 04/20/2022 Procedure Pass [facility] Periop [address] [place] [address] Social History Tobacco Use Types Packs/Day Years [...] 10:20 AM EST Blood Draw Laboratory Services, [address] [place] [address], [address] [place] [address] Reid Muhammad MD [address] [place] [phone] [email or web address] 09/13/2025 11:00 AM EST Office Visit [facility], [address] [place] [address], [place] [address] Derrick Munoz MD [address] [place] [phone] Olegario@[facility] 03/21/2026 1:00 PM EDT Office Visit [facility], [address] [place] [address], [address] [place] [address] Andres Banks MD, PhD [address] [place] [address] [email or web address] documented as of this encounter Visit Diagnoses Not on filedocumented in this encounter Care Teams Sugar Cane Grower Relationship Specialty Start Date End Date Catalina Gastelum MD PCP - General Internal Medicine 04/09/22 Quin Barragan [address] [address] [email or web address] Staff Air Tactical Officer 04/28/22 Jaylin Ribeiro, [address] [address] Rhiannon@[facility] Staff Air Tactical Officer Oncology 05/12/22 Sabine Harrison, ALY [address] [place] [address] JOSÉ MIGUEL@[facility] Primary Infusion Nurse 05/19/22 Ivon Cameron RN [address] [place] [address] Marquez@[facility] Associate Infusion Nurse 05/19/22 Zara Emerson PA-C [address] [place] [address] [email or web address] Physician Certified Addiction Counselor 06/15/23 Jada Mayfield MD, MPH [address] [place] [address] Francy@[email or web address] Radiation Oncology 06/15/23 documented as of this encounter Additional Source Comments The information contained in this document represents components of the legal health record. It is not the complete legal health record.[facility]
--- OUTSIDE RECORDS SUMMARY | 2025-05-02 17:16 | XMS_ITS | Encounter Summary ---
Author Organization [facility] Address [address] [facility] [address] [place] [address] Phone Care Team Providers Care Senior Sustainability Advisor Name Role Phone Catalina Gastelum MD Primary Care Provider + [phone] Quin Barragan POLICY SPECIALIST Unavailable +[phone] Jaylin Ribeiro POLICY SPECIALIST Unavailable +[phone] Sabine Harrison RN Unavailable MICHELLE [email or web address]. Ivon Vitale RN Unavailable Oralia [email or web address] [facility] Zara Emerson PA-C Unavailable + Jada Mayfield MD, MPH Unavailable + [phone] Encounter Details Date Type Department Care Team (Late st Contact Info) Description 07/23/2022 Procedure Pass [facility] [address] [place] [address] Social History Tobacco Use Types Packs/Day Years [...] 07/23/2022 10:28 PM Reid Espinoza, ALY * Colbert Suicide Severity Rating Scale (Screener/Recent Self-Report) Question [...] 10:20 AM EST Blood Draw Laboratory Services, [address] [place] [address] Reid Muhammad MD [address] [place] [phone] [email or web address] 09/13/2025 11:00 AM EST Office Visit [facility], [address], [address] [place] [address] Derrick Munoz MD [address] [place] [phone] Olegario@[facility] 03/21/2026 1:00 PM EDT Office Visit [facility], [address], [address] [place] [address] Andres Banks MD, PhD [address] [place] [address] [email or web address] documented as of this encounter Visit Diagnoses Not on filedocumented in this encounter Care Teams Senior Sustainability Advisor Relationship Specialty Start Date End Date Catalina Gastelum MD PCP - General Internal Medicine 04/09/22 Quin Barragan, [address] [address] Shira@[facility] Regional Rehabilitation Director 04/28/22 Jaylin Ribeiro, [address] [address] Rhiannon@[facility] Regional Rehabilitation Director Oncology 05/12/22 Sabine Harrison, RN [address] [place] [address] JOSÉ MIGUEL@[facility] Primary Infusion Nurse 05/19/22 Iovn Cameron, RN [address] [place] [address] Marquez@[email or web address] Associate Infusion Nurse 05/19/22 Zara Emerson PA-C [address] [place] [address] [email or web address] Physician Hospital Aide 06/15/23 Jada Mayfield MD, MPH [address] [place] [address] [email or web address] Radiation Oncology 06/15/23 documented as of this encounter Additional Source Comments The information contained in this document represents components of the legal health record. It is not the complete legal health record.[facility]
--- OUTSIDE RECORDS SUMMARY | 2025-05-02 17:16 | XMS_ITS | Encounter Summary ---
Author Organization [facility] Address [address] [place] [address] Phone Care Team Providers Care Pediatric Np Name Role Phone Catalina Gastelum MD Primary Care Provider + [phone] Quin Barragan ORTHOPEDICS NURSE Unavailable +[phone] Jaylin Ribeiro ORTHOPEDICS NURSE Unavailable [phone] Sabine Harrison RN Unavailable MICHELLE [email or web address]. Ivon Vitale RN Unavailable Oralia [email or web address]. [facility] Zara Emerson PA-C Unavailable + Jada Mayfield MD, MPH Unavailable + [phone] Encounter Details Date Type Department Care Team (Late st Contact Info) Description 10/01/2022 Telephone [facility], [facility] [address] [place] [address], 11th [place] [address] Evan Vigil, RN [address] [place] [address] Braydon@[facility] Social History Tobacco Use Types Packs/Day Years [...] 10:20 AM EST Blood Draw Laboratory Services, [address], [address] [place] [address] Reid Muhammad MD [address] [place] [phone] [email or web address] 09/13/2025 11:00 AM EST Office Visit [facility], [address], [address] [place] [address] Derrick Munoz MD [address] [place] [phone] Olegario@[facility] 03/21/2026 1:00 PM EDT Office Visit [facility], [address], [address] [place] [address] Andres Banks MD, PhD [address] [place] [phone] documented as of this encounter Visit Diagnoses Not on filedocumented in this encounter Care Teams Pediatric Np Relationship Specialty Start Date End Date Catalina Gastelum MD PCP - General Internal Medicine 04/09/22 Quin Barragan, [address] [address] Shira@[email or web address] Vice President Network 04/28/22 Jaylin Ribeiro, [address] [address] TamirCatrachoAnne [email or web address]@[facility] Vice President Network Oncology 05/12/22 Sabine Harrison, ALY [address] [place] [address] JOSÉ MIGUEL@[facility] Primary Infusion Nurse 05/19/22 Ivon Cameron RN [address] [place] [address] Marquez@[email or web address] Associate Infusion Nurse 05/19/22 Zara Emerson PA-C [address] [place] [address] [email or web address] Physician Forming Department Supervisor 06/15/23 Jada Mayfield MD, MPH [address] [place] [phone] Francy@[email or web address] Radiation Oncology 06/15/23 documented as of this encounter Additional Source Comments The information contained in this document represents components of the legal health record. It is not the complete legal health record.[facility]
--- OUTSIDE RECORDS SUMMARY | 2025-05-02 17:16 | XMS_ITS | Encounter Summary ---
Author Organization [facility] Address [address] [facility] [address] [place] [address] Phone Care Team Providers Care Waterworks Operator Name Role Phone Catalina Gastelum MD Primary Care Provider + [phone] Quin Barragan GROUP HOME MANAGER Unavailable +[phone] Jaylin Ribeiro GROUP HOME MANAGER Unavailable [phone] Sabine Harrison RN Unavailable MICHELLE [email or web address]. Ivon Vitale RN Unavailable Oralia [email or web address]. [email or web address] Zara Emerson PA-C Unavailable + Jada Mayfield MD, MPH Unavailable + [phone] Encounter Details Date Type Department Care Team (Late st Contact Info) Description 11/06/2022 Procedure Pass Trudy Lank Imaging Department, [facility] [place], [place] [address] [facility], Floor [address]1 [place] [address] Social History Tobacco Use Types Packs/Day Years [...] 10:20 AM EST Blood Draw Laboratory Services, [address], 2nd [place] [address] Reid Muhammad MD [address] [place] [phone] [email or web address] 09/13/2025 11:00 AM EST Office [facility], [address], [address] [place] [address] Derrick Munoz MD [address] [place] [phone] Olegario@[email or web address] 03/21/2026 1:00 PM EDT Office Visit [facility], [address], [address] [place] [address] Andres Banks MD, PhD [address] [place] [phone] [email or web address] documented as of this encounter Visit Diagnoses Not on filedocumented in this encounter Care Teams Waterworks Operator Relationship Specialty Start Date End Date Catalina Gastelum MD PCP - General Internal Medicine 04/09/22 Quin Barragan, GROUP HOME MANAGER [address] [place] [address] [email or web address] Peripatologist 04/28/22 Jaylin Ribeiro, [facility] [address] [place] [address] [email or web address] Peripatologist Oncology 05/12/22 Sabine Harrison, RN [address] [place] [phone] JOSÉ [email or web address]@[email or web address] Primary Infusion Nurse 05/19/22 Ivon Cameron RN [address] [place] [address] Marquez@[email or web address] Associate Infusion Nurse 05/19/22 Zara Emerson PA-C [address] [place] [address] and Women's [place], [place] [email or web address] Physician Rubber And Pounder 06/15/23 Jada Mayfield MD, MPH [address] [place] [address] Francy@[email or web address] Radiation Oncology 06/15/23 documented as of this encounter Additional Source Comments The information contained in this document represents components of the legal health record. It is not the complete legal health record.[facility]
--- OUTSIDE RECORDS SUMMARY | 2025-05-02 17:16 | XMS_ITS | Encounter Summary ---
Author Organization [facility] Address [address] [facility] [address] [place] [address] Phone Care Team Providers Care Envelope Sealing Machine Operator Name Role Phone Catalina Gastelum MD Primary Care Provider + [phone] Quin Barragan CLIENT ENGAGEMENT SPECIALIST Unavailable +[phone] Jaylin Ribeiro CLIENT ENGAGEMENT SPECIALIST Unavailable [phone] Sabine Harrison RN Unavailable MICHELLE [email or web address]. Ivon Vitale RN Unavailable Oralia [email or web address] [email or web address] Zara Emerson PA-C Unavailable + Jada Mayfield MD, MPH Unavailable + [phone] Encounter Details Date Type Department Care Team (Late st Contact Info) Description 11/06/2022 Procedure Pass Trudy Lank Imaging Department, [facility] [place], [place] [address] [facility], Floor [address]1 [place] [address] Social History Tobacco Use Types Packs/Day Years [...] 10:20 AM EST Blood Draw Laboratory Services, [address], 2nd [place] [address] Reid Muhammad MD [address] [place] [phone] [email or web address] 09/13/2025 11:00 AM EST Office Visit [facility], [address], [address] [place] [address] Derrick Munoz MD [address] [place] [phone] [email or web address] 03/21/2026 1:00 PM EDT Office Visit [facility], [address], [address] [place] [address] Andres Banks MD, PhD [address] [place] [phone] [email or web address] documented as of this encounter Visit Diagnoses Not on filedocumented in this encounter Care Teams Envelope Sealing Machine Operator Relationship Specialty Start Date End Date Catalina Gastelum MD PCP - General Internal Medicine 04/09/22 Quin Barragan, CLIENT ENGAGEMENT SPECIALIST [address] [place] [address] [email or web address] Transcription Typist 04/28/22 Jaylin Ribeiro, [facility] [address] [place] [address] [email or web address] Transcription Typist Oncology 05/12/22 Sabine Harrison, RN [address] [place] [address] JOSÉ [email or web address]@[email or web address] Primary Infusion Nurse 05/19/22 Ivon Cameron RN [address] [place] [address] Marquez@[email or web address] Associate Infusion Nurse 05/19/22 Zara Emerson PA-C [address] [place] [address] and Women's [place], [place] [email or web address] Physician Glass Forming Crew Member 06/15/23 Jada Mayfield MD, MPH [address] [place] [phone] [email or web address] Radiation Oncology 06/15/23 documented as of this encounter Additional Source Comments The information contained in this document represents components of the legal health record. It is not the complete legal health record.[facility]
--- OUTSIDE RECORDS SUMMARY | 2025-05-02 17:17 | XMS_ITS ---
Author Organization [facility] Address [address] [facility] [address] [place] [address] Phone Care Team Providers Care Direct Care Staffer Name Role Phone Catalina Gastelum MD Primary Care Provider + [phone] Quin Barragan CREEL CLERK Unavailable +[phone] Jaylin Ribeiro CREEL CLERK Unavailable [phone] Sabine Harrison RN Unavailable MICHELLE [email or web address]. Ivon Vitale RN Unavailable Oralia [email or web address]. [facility] Zara Emerson PA-C Unavailable + Jada Mayfield MD, MPH Unavailable +- [phone] Active Problems Problem Noted Date Diagnosed Date [...] if unable to do this by mouth. AUDIO VISUAL SECRETARY Support: As needed Emotional: Coping well Assessment [...] if unable to do this by mouth. AUDIO VISUAL SECRETARY Support: As needed Emotional: Coping well Assessment [...] if unable to do this by mouth. AUDIO VISUAL SECRETARY Support: As needed Emotional: Coping well Assessment [...] if unable to do this by mouth. AUDIO VISUAL SECRETARY Support: As needed Emotional: Coping well Assessment [...] if unable to do this by mouth. AUDIO VISUAL SECRETARY Support: As needed Emotional: Coping well Assessment & Plan (06/13/2022 9:19 PM EDT): Treatment: Weekly Cisplatin + XRT OK to continue treatment today: C1 D22 Pain Management: Acetaminophen Nausea Management: Metoclopramide, Ondansetron, Dexamethasone and Lorazepam Bowel Regimen: Colace and Senna Oral Care / Dental Hygiene: Oral rinses as indicated Nutritional Support: Tolerating full oral diet. Weight is down. AUDIO VISUAL SECRETARY Support: As needed Emotional: Coping well Assessment [...] Tolerating full oral diet. Weight is down. AUDIO VISUAL SECRETARY Support: As needed Emotional: Coping well Assessment [...] Tolerating full oral diet. Weight is down. AUDIO VISUAL SECRETARY Support: As needed Emotional: Coping well Current [...]
--- OUTSIDE RECORDS SUMMARY | 2025-05-02 17:17 | XMS_ITS | Clinical Summary ---
Author Organization [facility] Address [address] [facility] [address] [place] [address] Phone Care Team Providers Care Drive Shaft And Steering Post Repairer Name Role Phone Catalina Gastelum MD Primary Care Provider + [phone] Quin Barragan FUEL OPERATOR Unavailable +[phone] Jaylin Ribeiro FUEL OPERATOR Unavailable [phone] Sabine Harrison RN Unavailable MICHELLE [email or web address]. Ivon Vitale RN Unavailable Oralia [email or web address] [facility] Zara Emerson PA-C Unavailable + Jada Mayfield MD, MPH Unavailable +- [phone] Allergies Active Allergy Reactions Criticality Noted Date [...] Active diphenhydramine -lidocaine-alum -mag-simethicon e (MAGIC MOUTHWASH-BLM) [id number] mg/30mL suspension Swish and spit 10 mL [...] if unable to do this by mouth. COUNTER SERVER Support: As needed Emotional: Coping well Assessment [...] if unable to do this by mouth. COUNTER SERVER Support: As needed Emotional: Coping well Assessment [...] if unable to do this by mouth. COUNTER SERVER Support: As needed Emotional: Coping well Assessment [...] if unable to do this by mouth. COUNTER SERVER Support: As needed Emotional: Coping well Assessment [...] if unable to do this by mouth. COUNTER SERVER Support: As needed Emotional: Coping well Assessment & Plan (06/13/2022 9:19 PM EDT): Treatment: Weekly Cisplatin + XRT OK to continue treatment today: C1 D22 Pain Management: Acetaminophen Nausea Management: Metoclopramide, Ondansetron, Dexamethasone and Lorazepam Bowel Regimen: Colace and Senna Oral Care / Dental Hygiene: Oral rinses as indicated Nutritional Support: Tolerating full oral diet. Weight is down. COUNTER SERVER Support: As needed Emotional: Coping well Assessment [...] Tolerating full oral diet. Weight is down. COUNTER SERVER Support: As needed Emotional: Coping well Assessment [...] Tolerating full oral diet. Weight is down. 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) 02/21/2025 Orders Only [facility], [facility] [place] [address] [facility], 11th [place] [address] Reid Muhammad MD Squamous cell carcinoma of [...] 10:20 AM EST Blood Draw Laboratory Services, [address], 2nd [place] [address] Reid Muhammad MD [address] [place] [phone] [email or web address] 09/13/2025 11:00 AM EST Office Visit [facility], [address], [address] [place] [address] Derrick Munoz MD [address] [place] [phone] Olegario@[facility] 03/21/2026 1:00 PM EDT Office Visit [facility], [address], [address] [place] [address] Andres Banks MD, PhD [address] [place] [phone] [email or web address] Health Maintenance Due Date Last Done Comments [...] 10/20/2019 08/25/2019 TSH LEVEL 10/29/2023 10/28/2022, 07/26/2022 INFLUENZA VACCINE (#1) 2025 06/28/2020 COVID-19 VACCINE (2 - 2024-2 6 season) 2025 03/27/2021 RSV VACCINE (1 - 1-dose 75+ [...] EST) TSH 9.71(H) 0.27 - 4.20 uIU/mL [facility] [place] LIC# [id number] Blood 10/28/2022 9:40 AM EST 10/28/2022 9:59 AM EST us Derrick Munoz MD LAB BLOOD ORDERABLES Final Re sult [facility] [place] L[facility]# [id number] [address] [place] [phone] from Last 3 Months or Most Recently Relevant to Health Maintenance Insurance [facility] QMB [facility] MEDICARE HMO BLUE [facility]AC[facility] MEDIC[facility] HMO [facility] RE[facility] MEDICARE HMO [place] [address] [place] [address] [place] BL[place]AC[place] [facility] MEDICARE O BLUE REPLACEMENT Q[place] BLUE REPLACEMENT MEDICARE CLINICAL TRIAL RESTRICTED USE Advance Directives For more information, please contact: [phone] (9AM - 5PM Sally/[facility], Wednesday-Wednesday) Documents on File Type Date Recorded Patient Museum Host/Hostess Expl anation Healthcare Proxy 07/29/2022 4:34 PM * Full Code (Latest Code Status on File) Date Activated Date Inactivated Comments 07/26/2022 10:30 AM Question Answer Comments Code Status Confirmed With: Patient Care Teams Drive Shaft And Steering Post Repairer Relationship Specialty Start Date End Date Catalina Gastelum MD PCP - General Internal Medicine 04/09/22 Quin Barragan LICSW [address] [place] [address] [email or web address] Body Shop Floorperson 04/28/22 Jaylin Ribeiro, [facility] [address] [place] [address] Rhiannon@[email or web address] Body Shop Floorperson Oncology 05/12/22 Sabine Harrison, ALY [address] [place] [address] JOSÉ MIGUEL@[email or web address] Primary Infusion Nurse 05/19/22 Ivon Cameron RN [address] [place] [address] Marquez@[email or web address] Associate Infusion Nurse 05/19/22 Zara Emerson PA-C [address] [place] [address] and Women's [place], [place] [email or web address] Physician Bridge Crane Operator 06/15/23 Jada Mayfield MD, MPH [address] [place] [address] [email or web address] Radiation Oncology 06/15/23 Additional Source Comments The information contained in this document represents components of the legal health record. It is not the complete legal health record.[facility]
--- OUTSIDE RECORDS SUMMARY | 2025-05-02 17:17 | XMS_ITS | Encounter Summary ---
Author Organization [facility] Address [address] [facility] [address] [place] [address] Phone Care Team Providers Care Palletizer Name Role Phone Catalina Gastelum MD Primary Care Provider + [phone] Quin Barragan COUNTY ENGINEER Unavailable +[phone] Jaylin Ribeiro COUNTY ENGINEER Unavailable [phone] Sabine Harrison RN Unavailable MICHELLE [email or web address] Ivon Vitale RN Unavailable Oralia [email or web address] Zara Emerson PA-C Unavailable + Jada Mayfield MD, MPH Unavailable + [phone] Encounter Details Date Type Department Care Team (Late st Contact Info) Description 12/07/2023 Procedure Pass Trudy Lank Imaging Department, [facility] [facility] [place], [place] [address] [facility], Floor [address]1 [place] [address] Social History Tobacco Use Types Packs/Day Years [...] 10:20 AM EST Blood Draw Laboratory Services, [address], [address]nd [place] [address] Reid Muhammad MD [address] [place] [phone] [email or web address] 09/13/2025 11:00 AM EST Office Visit [facility], [address], [address] [place] [address] Derrick Munoz MD [address] [place] [phone] Olegario@[facility] 03/21/2026 1:00 PM EDT Office Visit [facility], [address], [address] [place] [address] Andres Banks MD, PhD [address] [place] [phone] documented as of this encounter Visit Diagnoses Not on filedocumented in this encounter Care Teams Palletizer Relationship Specialty Start Date End Date Nirav, Catalina Natacha, MD PCP - General Internal Medicine 04/09/22 Quin Barragan [address] [address] Shira@[email or web address] Physician'S Aide 04/28/22 Jaylin Ribeiro, [address] [address] [email or web address] Physician'S Aide Oncology 05/12/22 Sabine Harrison, RN [address] [place] [address] JOSÉ MIGUEL@[facility] Primary Infusion Nurse 05/19/22 Ivon Cameron, RN [address] [place] [address] Marquez@[email or web address] Associate Infusion Nurse 05/19/22 Zara Emerson PA-C [address] [place] [address] [email or web address] Physician Almond Sorter 06/15/23 Jada Mayfield MD, MPH [address] [place] [phone] [email or web address] Radiation Oncology 06/15/23 documented as of this encounter Additional Source Comments The information contained in this document represents components of the legal health record. It is not the complete legal health record.[facility]
--- OUTSIDE RECORDS SUMMARY | 2025-05-02 17:17 | XMS_ITS | Encounter Summary ---
Author Organization [facility] Address [address] [facility] [address] [place] [address] Phone Care Team Providers Care Net Programmer Analyst Name Role Phone Catalina Gastelum MD Primary Care Provider + [phone] Quin Barragan TEACHER DRAMATICS Unavailable +[phone] Jaylin Ribeiro TEACHER DRAMATICS Unavailable [phone] Sabine Harrison RN Unavailable MICHELLE [email or web address]. Ivon Vitale RN Unavailable Oralia [email or web address] Zara Emerson PA-C Unavailable + Jada Mayfield MD, MPH Unavailable + [phone] Encounter Details Date Type Department Care Team (Late st Contact Info) Description 12/07/2023 Procedure Pass Trudy Lank Imaging Department, [facility] [place], [place] [address] [facility], Floor [address] [place] [address] Social History Tobacco Use Types Packs/Day Years [...] 10:20 AM EST Blood Draw Laboratory Services, [address], [address] [place] [address] Reid Muhammad MD [address] [place] [phone] [email or web address] 09/13/2025 11:00 AM EST Office Visit [facility], [address], [address] [place] [address] Derrick Munoz MD [address] [place] [phone] Olegario@[facility] 03/21/2026 1:00 PM EDT Office Visit [facility], [address], [address] [place] [address] Andres Banks MD, PhD [address] [place] [phone] documented as of this encounter Visit Diagnoses Not on filedocumented in this encounter Care Teams Net Programmer Analyst Relationship Specialty Start Date End Date Nirav, Catalina Natacha, MD PCP - General Internal Medicine 04/09/22 Quin Barragan [address] [address] Shira@[facility] Forestry Farm Laborer 04/28/22 Jaylin Ribeiro, [address] [address] Rhiannon@[facility] Forestry Farm Laborer Oncology 05/12/22 Sabine Harrison, RN [address] [place] [address] JOSÉ MIGUEL@[facility] Primary Infusion Nurse 05/19/22 Ivon Cameron, RN [address] [place] [address] [email or web address] Associate Infusion Nurse 05/19/22 Zara Emerson PA-C [address] [place] [address] [email or web address] Physician Supervisor Pressing Department 06/15/23 Jada Mayfield MD, MPH [address] [place] [phone] [email or web address] Radiation Oncology 06/15/23 documented as of this encounter Additional Source Comments The information contained in this document represents components of the legal health record. It is not the complete legal health record.[facility]
== END 2025-05-02 14:32 | disposition home or self-care (01) ==
LOC: HO.HOP 14:04
PROVIDERS: PCP Internal Medicine; Visit Provider Clinical Nurse Specialist Psychiatric/Mental Health, Adult
DX: F41.1 Generalized anxiety disorder (principal); F33.41 Major depressive disorder, recurrent, in partial remission; F39 Unspecified mood [affective] disorder
CPT/HCPCS: 99213

== ENCOUNTER → 2025-05-02 14:04 | Outpatient (BNVA) | payer MEDICARE, MEDICAID, SELFPAY | PROVIDERS: PCP Internal Medicine; Visit Provider Clinical Nurse Specialist Psychiatric/Mental Health, Adult | DX: F41.1 Generalized anxiety disorder (principal); F33.41 Major depressive disorder, recurrent, in partial remission; F39 Unspecified mood [affective] disorder | CPT/HCPCS: 99212 ==

== ENCOUNTER 2025-06-13 14:07 | Outpatient (AMB) | payer MEDICARE, MEDICAID, SELFPAY ==
--- NOTE | 2025-06-13 14:14 | MHC.OFFVISPS ---
Intake Intake Visit Reasons: follow up Bilingual Legal Assistant Required: No Allergies metronidazole (From Flagyl) Allergy (Unknown, Verified 01/09/25 11:00) Unknown moxifloxacin (From Avelox) Allergy (Unknown, Verified 01/09/25 11:00) Unknown penicillin G Allergy (Unknown, Verified 01/09/25 11:00) Unknown Medication List - Last Reconciled 06/13/25 by Florence Ojeda APRN aspirin (Adult Low Dose Aspirin) 81 mg PO DAILY clorazepate dipotassium 7.5 mg PO QID esomeprazole magnesium (Nexium 24HR) 20 mg PO DAILY lactobacillus combination no.4 (Probiotic) 3,000 mmu cells PO DAILY lamotrigine (Lamictal) 50 mg (2 x 25 mg) PO DAILY levothyroxine 137 mcg PO DAILY mirtazapine orally AT BEDTIME; take one to two tablets at bedtime olanzapine 2.5 mg PO DAILY PRN polyethylene glycol 3350 (Miralax) 17 grams PO DAILY psyllium husk (Daily Fiber) 0.4 grams PO DAILY quetiapine 25 mg PO QID 90 days sennosides (Natural Senna Laxative) 8.6 mg PO DAILY sertraline 25 mg (1/2 x 50 mg) PO DAILY HPI- Psychiatric Chief Complaint: follow up Intake Note: I feel some relief. My appetite is back I get hungry and am able to eat daily . Reports taking an MVI, continuing Boost, however, now with more food choices. Discussed replacing Quetiapine with Olanzapine-she will consider. Reports anxiety is more managable with ongoing stressors including son currently working on his compliance attorney license; sister was placed in a nursing facility in [facility] who was causing problems for pt and son has moved HPI Past Psychiatric History: Trials: Sertraline, Seroquel, Mirtazapine Subjective Subjective Subjective Medication Compliance: Yes Side effects from medications: No Review of Systems Medical Review of Systems: unchanged Mental Status Exam Mental Status Exam Patient Appearance: Appropriate Patient Orientation: Person, Place, Time and Situation Level of Consciousness: Alert Patient Behavior: Appropriate and Talkative Mood Description: Calm Affect Description: Calm Patient Cognition Impaired: No Ability to Follow Directions: Good Speech Pattern: Spontaneous Speech Memory Description: Intact Hallucinations: None Delusions: Not Present Thought Process: Intact and Goal Oriented Thought Content: positive for Intact and positive for Goal Oriented Judgement: Good Assessment and Plan Assessment & Plan (1) Generalized anxiety disorder: Status: Acute Code(s): F41.1 - Generalized anxiety disorder (2) Mood disorder: Status: Acute Code(s): F39 - Unspecified mood [affective] disorder Plan Continue Lamictal, Olanzapine, Sertraline, Seroquel, Mirtazapine Medications: Refilled lamotrigine (Lamictal) 50 mg (2 x 25 mg) PO DAILY 60 tabs 0RF olanzapine 2.5 mg PO DAILY PRN 30 tabs 0RF anxiety, agitation Counseling and coordination of Care Medication management counseling: Effectiveness, Side effects, Dosing range, Duration, Drug interaction and Adherence Diagnosis and Prognosis Counseling: Impact of diagnosis on life functions Details: I spent [] minutes reviewing the record, seeing the patient and documenting in the medical record. Counseling provided to the patient/caregiver as outlined below. Addressed patient/caregiver concerns regarding current medication regime including effective adherence. Addressed patient/caregiver concerns regarding diagnosis and prognosis including accuracy of diagnosis, prognosis over time, impact of diagnosis. Addressed patient/caregiver concerns regarding impact of recent stressors. [facility] Medical History FHx: cholecystectomy Vitamin D deficiency Neck mass Multiple allergies Insomnia Hyperglycemia Hypercholesteremia Hiatal hernia H/O gastroesophageal reflux (GERD) Cervical radiculopathy Anxiety Surgical History History of appendectomy H/O: section Family History Mother Aneurysm HTN (hypertension) Sister Mental disorder Paternal Grandfather Heart attack Social History Alcohol intake: never Patient Tobacco Use Status: Current everyday Tobacco user Cigarette Packs Per Day: 3 Years Smoked: 57 e-Cigarette/Vaping Use: Never Used Second Hand Smoke Exposure: No service: No Current occupational status: retired Cognitive needs: No Hearing needs: Yes (difficulty hearing) Vision needs: Yes (glasses) Social History: Father was a chief projectionist, sister with bipolar disorder and borderline personality. Pt's son is 36, he is my life Substance History: smoker of 57 years Trauma History: affirms Coding Level of Care Code Est Pt Level 3 (20752) Diagnoses Generalized anxiety disorder F41.1 Mood disorder F39
--- OUTSIDE RECORDS SUMMARY | 2025-06-13 20:20 | XMS_ITS | Encounter Summary ---
Author Organization [facility] Address [address] [facility] [address] [place] [address] Phone Care Team Providers Care Monitoring And Evaluation Advisor Name Role Phone Catalina Gastelum MD Primary Care Provider + [phone] Quin Barragan RENOVATOR MACHINE OPERATOR Unavailable [phone] Jaylin Ribeiro RENOVATOR MACHINE OPERATOR Unavailable [phone] Sabine Harrison RN Unavailable MICHELLE [email or web address] Ivon Vitale RN Unavailable Oralia [email or web address] Zara Emerson PA-C Unavailable + Jada Mayfield MD, MPH Unavailable + [phone] Encounter Details Date Type Department Care Team (Late st Contact Info) Description 06/04/2022 Procedure Pass [facility] Periop [address] [place] [address] Social History Tobacco Use Types Packs/Day Years [...] 10:20 AM EST Blood Draw Laboratory Services, [address], [address] [place] [address] Reid Muhammad MD [address] [place] [address] [email or web address] 09/13/2025 11:00 AM EST [facility], [address], [address] [place] [address] Derrick Munoz MD [address] [place] [address] Olegario@[email or web address] 03/21/2026 1:00 PM EDT Office Visit [facility], [address], [address] [place] [address] Andres Banks MD, PhD [address] [place] [address] [email or web address] documented as of this encounter Visit Diagnoses Not on filedocumented in this encounter Care Teams Monitoring And Evaluation Advisor Relationship Specialty Start Date End Date Catalina Gastelum MD PCP - General Internal Medicine 04/09/22 Quin Barragan LICSW [address] [place] [address] [email or web address] Application Programmer Analyst 04/28/22 Jaylin Ribeiro, [address] [address] [email or web address] Application Programmer Analyst Oncology 05/12/22 Sabine Harrison, RN [address] [place] [address] JOSÉ [email or web address] Primary Infusion Nurse 05/19/22 Ivon Cameron, RN [address] [place] [address] [email or web address] Associate Infusion Nurse 05/19/22 Zara Emerson PA-C [address] [place] [address] [email or web address] Physician Transcribing Machine Mechanic 06/15/23 Jada Mayfield MD, MPH [address] [place] [address] [email or web address] Radiation Oncology 06/15/23 documented as of this encounter Additional Source Comments The information contained in this document represents components of the legal health record. It is not the complete legal health record.[facility]
--- OUTSIDE RECORDS SUMMARY | 2025-06-13 20:20 | XMS_ITS | Encounter Summary ---
Author Organization [facility] Address [address] [facility] [address] [place] [address] Phone Care Team Providers Care Scallop Cutter Name Role Phone Catalina Gastelum MD Primary Care Provider + [phone] Quin Barragan SAWMILL EQUIPMENT OPERATOR Unavailable [phone] Jaylin Ribeiro SAWMILL EQUIPMENT OPERATOR Unavailable [phone] Sabine Harrison RN Unavailable MICHELLE [email or web address]. Ivon Vitale RN Unavailable Oralia [email or web address] Zara Emerson PA-C Unavailable + Jada Mayfield MD, MPH Unavailable +- [phone] Encounter Details Date Type Department Care Team (Late st Contact Info) Description 09/29/2022 Procedure Pass [facility] Imaging Department, [facility] [place], PET/CT [address] [place] [address] Social History Tobacco Use Types Packs/Day Years [...] 10:20 AM EST Blood Draw Laboratory Services, [address], [address] [place] [address] Reid Muhammad MD [address] [place] [address] [email or web address] 09/13/2025 11:00 AM EST Office Visit [facility], [address], [address] [place] [address] Derrick Munoz MD [address] [place] [address] [email or web address] 03/21/2026 1:00 PM EDT Office Visit [facility], [address], [address] [place] [address] Andres Banks MD, PhD [address] [place] [address] [email or web address] documented as of this encounter Visit Diagnoses Not on filedocumented in this encounter Care Teams Scallop Cutter Relationship Specialty Start Date End Date Catalina Gastelum MD PCP - General Internal Medicine 04/09/22 Quin Barragan [address] [address] [email or web address] Billing Services Manager 04/28/22 Jaylin Ribeiro, [address] [address] [email or web address] Billing Services Manager Oncology 05/12/22 Sabine Harrison, ALY [address] [place] [address] JOSÉ [email or web address] Primary Infusion Nurse 05/19/22 Ivon Cameron RN [address] [place] [address] [email or web address] Associate Infusion Nurse 05/19/22 Zara mEerson PA-C [address] [place] [address] [email or web address] Physician Finishing Room Operator 06/15/23 Jada Mayfield MD, MPH [address] [place] [address] [email or web address] Radiation Oncology 06/15/23 documented as of this encounter Additional Source Comments The information contained in this document represents components of the legal health record. It is not the complete legal health record.[facility]
--- OUTSIDE RECORDS SUMMARY | 2025-06-13 20:20 | XMS_ITS | Clinical Summary ---
Author Organization [address] [facility] Address [address] [place] [address] Phone Care Team Providers Care Special Shopper Name Role Phone Catalina Paris MD Primary Care Provider [phone] Social History Tobacco Use Types Packs/Day Years Used Date Smoking Tobacco: Never Assessed Comments Unknown Sex and Gender Information Value Date Recorded Sex Assigned at Not on file Legal Sex Female 1:13 PM EST Gender Identity Not on file Sexual Orientation Not on file Plan of Treatment Health Maintenance Due Date Last Done Comments Breast Cancer Screening 1950 Colorectal Cancer Screening: Colonoscopy 1950 DTaP,Tdap,and Td Vaccines (1 - Tdap) 1971 Pneumococcal Vaccine: 50+ Ye ars (1 of 1 - PCV) 2002 Zoster Vaccines (1 of 2) 2002 Falls Risk Assessment 09/21/2023 Hepatitis C Screening [...] to complete this topic Insurance [facility] [place] [address] BL[place]OSS [place] Care Teams Special Shopper Relationship Specialty Start Date End Date Catalina Paris MD [address] [place] [address] [address] [place] [address] PCP - General 08/07/22
--- OUTSIDE RECORDS SUMMARY | 2025-06-13 20:20 | XMS_ITS | Encounter Summary ---
Author Organization [facility] Address [address] [facility] [address] [place] [address] Phone Care Team Providers Care Buckle And Button Maker Name Role Phone Catalina Gastelum MD Primary Care Provider + [phone] Quin Barragan JUVENILE PROBATION OFFICER Unavailable [phone] Jaylin Ribeiro JUVENILE PROBATION OFFICER Unavailable [phone] Sabine Harrison RN Unavailable [email or web address]. Ivon Vitale RN Unavailable Oralia [email or web address] Zara Emerson PA-C Unavailable + Jada Mayfield MD, MPH Unavailable + [phone] Encounter Details Date Type Department Care Team (Late st Contact Info) Description 11/06/2022 Procedure Pass Trudy Lank Imaging Department, [facility] [place] [address] [facility], Floor [address]1 [place] [address] Social History Tobacco Use Types Packs/Day Years [...] 10:20 AM EST Blood Draw Laboratory Services, [address], [address] [place] [address] Reid Muhammad MD [address] [place] [address] [email or web address] 09/13/2025 11:00 AM EST Office Visit [facility], [address], [address] [place] [address] Derrick Munoz MD [address] [place] [address] [email or web address] 03/21/2026 1:00 PM EDT Office Visit [facility], [address], [address] [place] [address] Andres Banks MD, PhD [address] [place] [address] [email or web address] documented as of this encounter Visit Diagnoses Not on filedocumented in this encounter Care Teams Buckle And Button Maker Relationship Specialty Start Date End Date Catalina Gastelum MD PCP - General Internal Medicine 04/09/22 Quin Barragan LICSW [address] [place] [address] [email or web address] Methods Time Analyst 04/28/22 Jaylin Ribeiro, JUVENILE PROBATION OFFICER [address] [place] [address] [email or web address] Methods Time Analyst Oncology 05/12/22 Sabine Harrison, RN [address] [place] [address] JOSÉ [email or web address] Primary Infusion Nurse 05/19/22 Ivon Cameron RN [address] [place] [address] Marquez@[email or web address] Associate Infusion Nurse 05/19/22 Zara Emerson PA-C [address] [place] [address] and [facility] [place], [place] [email or web address] Physician Energy Conservation Director 06/15/23 Jada Mayfield MD, MPH [address] [place] [address] [email or web address] Radiation Oncology 06/15/23 documented as of this encounter Additional Source Comments The information contained in this document represents components of the legal health record. It is not the complete legal health record.[facility]
--- OUTSIDE RECORDS SUMMARY | 2025-06-13 20:20 | XMS_ITS | Clinical Summary ---
Author Organization [facility] Address [address] [facility] [address] [place] [address] Phone Care Team Providers Care Sulfur Chloride Operator Name Role Phone Catalina Gastelum MD Primary Care Provider + [phone] Quin Barragan INSTRUMENT INSTALLER Unavailable [phone] Jaylin Ribeiro INSTRUMENT INSTALLER Unavailable [phone] Sabine Harrison RN Unavailable MICHELLE [email or web address] Ivon Vitale RN Unavailable Oralia [email or web address] Zara Emerson PA-C Unavailable + Jada Mayfield MD, MPH Unavailable +- [phone] Allergies Active Allergy Reactions Criticality Noted Date [...] Active diphenhydramine -lidocaine-alum -mag-simethicon e (MAGIC MOUTHWASH-BLM) [id number] mg/30mL suspension Swish and spit 10 mL [...] if unable to do this by mouth. BRANCH MECHANIC Support: As needed Emotional: Coping well Assessment [...] if unable to do this by mouth. BRANCH MECHANIC Support: As needed Emotional: Coping well Assessment [...] if unable to do this by mouth. BRANCH MECHANIC Support: As needed Emotional: Coping well Assessment [...] if unable to do this by mouth. BRANCH MECHANIC Support: As needed Emotional: Coping well Assessment [...] if unable to do this by mouth. BRANCH MECHANIC Support: As needed Emotional: Coping well Assessment & Plan (06/13/2022 9:19 PM EDT): Treatment: Weekly Cisplatin + XRT OK to continue treatment today: C1 D22 Pain Management: Acetaminophen Nausea Management: Metoclopramide, Ondansetron, Dexamethasone and Lorazepam Bowel Regimen: Colace and Senna Oral Care / Dental Hygiene: Oral rinses as indicated Nutritional Support: Tolerating full oral diet. Weight is down. BRANCH MECHANIC Support: As needed Emotional: Coping well Assessment [...] Tolerating full oral diet. Weight is down. BRANCH MECHANIC Support: As needed Emotional: Coping well Assessment [...] Tolerating full oral diet. Weight is down. BRANCH MECHANIC Support: As needed Emotional: Coping well Encounters Date Type Department Care Team Description 03/22/2025 1:00 PM EDT Office Visit [facility], [facility] [address] [place] [address], 11th Floor [place], [place] [phone] Andres Banks MD, PhD Squamous cell carcinoma [...] 10:20 AM EST Blood Draw Laboratory Services, [facility] [address], [address] [place] [address] Reid Muhammad MD [address] [place] [address] [email or web address] 09/13/2025 11:00 AM EST Office Visit [facility], [address], [address] [place] [address] Derrick Munoz MD [address] [place] [address] Olegario@[email or web address] 03/21/2026 1:00 PM EDT Office Visit [facility], [address], [address] [place] [address] Andres Banks MD, PhD [address] [place] [address] Health Maintenance Due Date Last Done Comments [...] Procedure Name Priority Date/Time Associated Diagnosis Comments HPV CTDNA TO NAVERIS (NAVDX) Routine 03/22/2025 11:54 AM EDT Squamous cell carcinoma of base of tongue TSH Routine 10/28/2022 9:40 AM EST 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 from Last 3 Months or Most Recently Relevant to Health Maintenance Results * HPV ctDNA to Naveris (NavDX) (03/22/2025 11:54 AM EDT) HPV ctDNA to Naveris (NavDX) [facility] Blood 03/22/2025 11:5 4 AM EDT 03/22/2025 12:13 PM EDT us Reid Muhammad MD LAB BLOOD ORDERABLES Final Resu lt Performing Organization Address [facility] Co de Phone Number [facility] [address] [place] [phone] * (ABNORMAL) TSH (10/28/2022 9:40 AM EST) TSH 9.71(H) 0.27 - 4.20 uIU/mL [facility] LIC# [id number] Blood 10/28/2022 9:40 AM EST 10/28/2022 9:59 AM EST us Derrick Munoz MD LAB BLOOD ORDERABLES Final Re sult Performing Organization Address City/[facility] Co de Phone Number [facility] LIC# [id number] [address] [place] [address] from Last 3 Months or Most Recently Relevant to Health Maintenance Insurance [facility] BLUE [place] MEDICARE HMO BLUE REPLACEMENT [facility] MEDICARE O BLUE REPLAC[facility] [place] BL[place] [facility] [place] MED[place] HMO BLUE REPLACEMENT [address] [place], [place] [id number] [facility] MEDICARE O BLUE REPLACEMENT [facility] QMB [facility] MEDICARE O BLUE REPLACEMENT MEDICARE CLINICAL TRIAL RESTRICTED USE Advance Directives For more information, please contact: [phone] (9AM - 5PM Sally/[facility]_[place], Wednesday-Wednesday) Documents on File Type Date Recorded Patient Cutting Supervisor Expl anation Healthcare Proxy 07/29/2022 4:34 PM * Full Code (Latest Code Status on File) Date Activated Date Inactivated Comments 07/26/2022 10:30 AM Question Answer Comments Code Status Confirmed With: Patient Care Teams Sulfur Chloride Operator Relationship Specialty Start Date End Date Catalina Gastelum MD PCP - General Internal Medicine 04/09/22 Quin Barragan, [address] [address] [email or web address] Medical Lab Specialist 04/28/22 Jaylin Ribeiro, [address] [address] [email or web address] Medical Lab Specialist Oncology 05/12/22 Sabine Harrison, RN [address] [place] [address] JOSÉ [email or web address] Primary Infusion Nurse 05/19/22 Ivon Cameron RN [address] [place] [address] [email or web address] Associate Infusion Nurse 05/19/22 Zara Emerson PA-C [address] [place] [address] [email or web address] Physician Photographic Editor 06/15/23 Jada Mayfield MD, MPH [address] [place] [address] [email or web address] Radiation Oncology 06/15/23 Additional Source Comments The information contained in this document represents components of the legal health record. It is not the complete legal health record.[facility]
--- OUTSIDE RECORDS SUMMARY | 2025-06-13 20:20 | XMS_ITS | Encounter Summary ---
Author Organization [facility] Address [address] [place] [address] Phone Care Team Providers Care Junior Web Developer Name Role Phone Catalina Gastelum MD Primary Care Provider + [phone] Quin Barragan TRANSFORMER REPAIRER Unavailable [phone] Jaylin Ribeiro TRANSFORMER REPAIRER Unavailable [phone] Sabine Harrison RN Unavailable MICHELLE [email or web address] Ivon Vitale RN Unavailable Oralia [email or web address] Zara Emerson PA-C Unavailable + Jada Mayfield MD, MPH Unavailable + [phone] Encounter Details Date Type Department Care Team (Late st Contact Info) Description 12/07/2023 Procedure Pass Trudy Lank Imaging Department, [facility] [place], [place] [address] [facility], Floor [address] [place] [address] Social History Tobacco Use Types Packs/Day Years [...] AM EST Blood Draw Laboratory Services, [address], [address] [place] [address] Reid Muhammad MD [address] [place] [address] [email or web address] 09/13/2025 11:00 AM EST Office Visit [facility], [address], [place] [address] Derrick Munoz MD [address] [place] [address] Olegario@[email or web address] 03/21/2026 1:00 PM EDT Office Visit [facility], [address], [address] [place] [address] Andres Banks MD, PhD [address] [place] [address] documented as of this encounter Visit Diagnoses Not on filedocumented in this encounter Care Teams Junior Web Developer Relationship Specialty Start Date End Date Catalina Gastelum MD PCP - General Internal Medicine 04/09/22 Quin Barragan [address] [address] Shira@[email or web address] Chain Maker Hand 04/28/22 Jaylin Ribeiro, [address] [address] [email or web address] Chain Maker Hand Oncology 05/12/22 Sabine Harrison, RN [address] [place] [address] JOSÉ MIGUEL@[email or web address] Primary Infusion Nurse 05/19/22 Ivon Cameron, RN [address] [place] [address] [email or web address] Associate Infusion Nurse 05/19/22 Zara Emerson PA-C [address] [place] [address] [email or web address] Physician Apartment Maintenance Supervisor 06/15/23 Jada Mayfield MD, MPH [address] [place] [address] [email or web address] Radiation Oncology 06/15/23 documented as of this encounter Additional Source Comments The information contained in this document represents components of the legal health record. It is not the complete legal health record.[facility]
--- OUTSIDE RECORDS SUMMARY | 2025-06-13 20:20 | XMS_ITS | Encounter Summary ---
Author Organization [facility] Address [address] [facility] [address] [place] [address] Phone Care Team Providers Care Clinical Counselor Name Role Phone Catalina Gastelum MD Primary Care Provider + [phone] Quin Barragan ASSOCIATE SOFTWARE ENGINEER Unavailable +[phone] Jaylin Ribeiro ASSOCIATE SOFTWARE ENGINEER Unavailable +[phone] Sabine Harrison RN Unavailable MICHELLE [email or web address]. Ivon Vitale RN Unavailable Oralia [email or web address] [facility] Zara Emerson PA-C Unavailable + Jada Mayfield MD, MPH Unavailable + [phone] Encounter Details Date Type Department Care Team (Late st Contact Info) Description 06/03/2022 Prep for Surgery [facility]'s [address] [address] Nery Campbell PA-C [address] [place] [address] [email or web address] Social History Tobacco Use Types Packs/Day Years [...] Campbell PA-C - 06/03/2022 5:19 PM EDT [facility] Metabolic Support Service Phone Screen NAME: [...] adenopathy. Currently receiving weekly cisplatin and XRT. [facility] has been [facility] for PEG placement for [...] 125 mcg by mouth every morning. ??? jdtuxlgbu-qeopotqarsqlmlp-gtun-mag-simethicone (MAGIC MOUTHWASH-BLM) [id number] mg/30mL suspension Swish and spit 10 mL [...] indicated. Nery Campbell PA-C Metabolic Support Service [facility] Office [phone] Pager [phone] documented in this encounter Plan of Treatment Upcoming Encounters Date Type Department Care Team (Late st Contact Info) Description 09/13/2025 10:20 AM EST Blood Draw Laboratory Services, [address] [place] [address] Reid Muhammad MD [address] [place] [address] [email or web address] 09/13/2025 11:00 AM EST [facility], [address], [place] [address] Derrick Munoz MD [address] [place] [address] Olegario@[email or web address] 03/21/2026 1:00 PM EDT Office Visit [facility], [address], [address] [place] [address] Andres Banks MD, PhD [address] [place] [address] [email or web address] documented as of this encounter Visit Diagnoses Not on filedocumented in this encounter Care Teams Clinical Counselor Relationship Specialty Start Date End Date Catalina Gastelum MD PCP - General Internal Medicine 04/09/22 Quin Barargan, [address] [address] [email or web address] Customer Service Leader 04/28/22 Jaylin Ribeiro, [address] [address] [email or web address]@[email or web address] Customer Service Leader Oncology 05/12/22 Sabine Harrison, RN [address] [place] [address] JOSÉ MIGUEL@[email or web address] Primary Infusion Nurse 05/19/22 Ivon Cameron, RN [address] [place] [address] [email or web address] Associate Infusion Nurse 05/19/22 Zara Emerson PA-C [address] [place] [address] [place] [address] [email or web address] Physician Potato Sorter 06/15/23 Jada Mayfield MD, MPH [address] [place] [address] [email or web address] Radiation Oncology 06/15/23 documented as of this encounter Additional Source Comments The information contained in this document represents components of the legal health record. It is not the complete legal health record.[facility]
--- OUTSIDE RECORDS SUMMARY | 2025-06-13 20:20 | XMS_ITS | Encounter Summary ---
Author Organization [facility] Address [address] [place] [address] Phone Care Team Providers Care Police Radio Dispatcher Name Role Phone Catalina Gastelum MD Primary Care Provider + [phone] Quin Barragan OIL WELL LOGGER Unavailable +[phone] Jaylin Ribeiro OIL WELL LOGGER Unavailable +[phone] Sabine Harrison RN Unavailable MICHELLE [email or web address]. Ivon Vitale RN Unavailable Oralia [email or web address] Zara Emerson PA-C Unavailable + Jada Mayfield MD, MPH Unavailable + [phone] Encounter Details Date Type Department Care Team (Late st Contact Info) Description 07/23/2022 Procedure Pass [facility] [address] [place] [address] Social History Tobacco Use Types Packs/Day Years [...] 07/23/2022 10:28 PM Reid Espinoza, ALY * [place] Suicide Severity Rating Scale (Screener/Recent Self-Report) Question Answer Date of Assessment Author 1. Wish to be (Past 1 Month) No 07/23/2022 10:28 PM Reid Matamoros, ALY 2. Non-Specific Active Suicidal Thoughts (Past 1 Month) No 07/23/2022 10:28 PM Reid Matamoros, ALY 6. Suicidal Behavior (Lifetime) No 07/23/2022 10:28 PM Reid Matamoros RN documented as of this encounter Plan of Treatment Upcoming Encounters Date Type Department Care Team (Late st Contact Info) Description 09/13/2025 10:20 AM EST Blood Draw Laboratory Services, [address], [address] [place] [address] Reid Muhammad MD [address] [place] [address] [email or web address] 09/13/2025 11:00 AM EST Office [facility], [address], [place] [address] Derrick Munoz MD [address] [place] [address] Olegario@[facility] 03/21/2026 1:00 PM EDT Office Visit [facility], [address], [address] [address] Andres Banks MD, PhD [address] [place] [address] [email or web address] documented as of this encounter Visit Diagnoses Not on filedocumented in this encounter Care Teams Police Radio Dispatcher Relationship Specialty Start Date End Date Catalina Gastelum MD PCP - General Internal Medicine 04/09/22 Quin Barragan, [address] [address] Shira@[facility] Client Services Associate 04/28/22 Jaylin Ribeiro, [address] [address] [email or web address]@[email or web address] Client Services Associate Oncology 05/12/22 Sabine Harrison, RN [address] [place] [address] JOSÉ MIGUEL@[facility] Primary Infusion Nurse 05/19/22 Ivon Cameron RN [address] [place] [address] Marquez@[email or web address] Associate Infusion Nurse 05/19/22 Zara Emerson PA-C [address] [place] [address] [email or web address] Physician Analytical Research Chemist 06/15/23 Jada Mayfield MD, MPH [address] [place] [address] [email or web address] Radiation Oncology 06/15/23 documented as of this encounter Additional Source Comments The information contained in this document represents components of the legal health record. It is not the complete legal health record.[facility]
--- OUTSIDE RECORDS SUMMARY | 2025-06-13 20:20 | XMS_ITS | Encounter Summary ---
Author Organization [facility] Address [address] [facility] [address] [place] [address] Phone Care Team Providers Care Medical Researcher Name Role Phone Catalina Gastelum MD Primary Care Provider + [phone] Quin Barragan DIRECTOR OF PEOPLE Unavailable +[phone] Jaylin Ribeiro DIRECTOR OF PEOPLE Unavailable +[phone] Sabine Harrison RN Unavailable MICHELLE [email or web address]. Ivon Vitale RN Unavailable Oralia [email or web address] [facility] Zara Emerson PA-C Unavailable + Jada Mayfield MD, MPH Unavailable + [phone] Encounter Details Date Type Department Care Team (Late st Contact Info) Description 10/01/2022 Telephone [facility], [facility] [address] [place] [address], 11th [place] [address] Evan Vigil, RN [address] [place] [address] [email or web address] Social History Tobacco Use Types Packs/Day Years [...] 10:20 AM EST Blood Draw Laboratory Services, [address], [address] [place] [address] Reid Muhammad MD [address] [place] [address] [email or web address] 09/13/2025 11:00 AM EST Office Visit [facility], [address], [address] [place] [address] Derrick Munoz MD [address] [place] [address] Olegario@[facility] 03/21/2026 1:00 PM EDT Office Visit [facility], [address], [address] [place] [address] Andres Banks MD, PhD [address] [place] [address] documented as of this encounter Visit Diagnoses Not on filedocumented in this encounter Care Teams Medical Researcher Relationship Specialty Start Date End Date Catalina Gastelum MD PCP - General Internal Medicine 04/09/22 Quin Barragan, [address] [address] [email or web address] White Mixing Operator 04/28/22 Jaylin Ribeiro, [facility] [address] [place] [address] Rhiannon@[email or web address] White Mixing Operator Oncology 05/12/22 Sabine Harrison, RN [address] [place] [address] JOSÉ MIGUEL@[facility] Primary Infusion Nurse 05/19/22 Ivon Cameron, ALY [address] [place] [address] Marquez@[email or web address] Associate Infusion Nurse 05/19/22 Zara Emerson PA-C [address] [place] [address] [place] [address] [email or web address] Physician Alum Mixer 06/15/23 Jada Mayfield MD, MPH [address] [place] [address] [email or web address] Radiation Oncology 06/15/23 documented as of this encounter Additional Source Comments The information contained in this document represents components of the legal health record. It is not the complete legal health record.[facility]
--- OUTSIDE RECORDS SUMMARY | 2025-06-13 20:20 | XMS_ITS ---
Author Organization [facility] Address [address] [place] [address] Phone Care Team Providers Care Performing Artist Name Role Phone Catalina Gastelum MD Primary Care Provider + [phone] Quin Barragan BAKER CHEF Unavailable +[phone] Jaylin Ribeiro BAKER CHEF Unavailable +[phone] Sabine Harrison RN Unavailable MICHELLE [email or web address]. Ivon Vitale RN Unavailable Oralia [email or web address]. [facility] Zara Emerson PA-C Unavailable + Jada Mayfield MD, MPH Unavailable +- [phone] Active Problems Problem Noted Date Diagnosed Date [...] if unable to do this by mouth. OWNER SPA DIRECTOR Support: As needed Emotional: Coping well Assessment [...] if unable to do this by mouth. OWNER SPA DIRECTOR Support: As needed Emotional: Coping well Assessment [...] if unable to do this by mouth. OWNER SPA DIRECTOR Support: As needed Emotional: Coping well Assessment [...] if unable to do this by mouth. OWNER SPA DIRECTOR Support: As needed Emotional: Coping well Assessment [...] if unable to do this by mouth. OWNER SPA DIRECTOR Support: As needed Emotional: Coping well Assessment & Plan (06/13/2022 9:19 PM EDT): Treatment: Weekly Cisplatin + XRT OK to continue treatment today: C1 D22 Pain Management: Acetaminophen Nausea Management: Metoclopramide, Ondansetron, Dexamethasone and Lorazepam Bowel Regimen: Colace and Senna Oral Care / Dental Hygiene: Oral rinses as indicated Nutritional Support: Tolerating full oral diet. Weight is down. OWNER SPA DIRECTOR Support: As needed Emotional: Coping well Assessment [...] Tolerating full oral diet. Weight is down. OWNER SPA DIRECTOR Support: As needed Emotional: Coping well Assessment [...] Tolerating full oral diet. Weight is down. OWNER SPA DIRECTOR Support: As needed Emotional: Coping well Current [...]
--- OUTSIDE RECORDS SUMMARY | 2025-06-13 20:20 | XMS_ITS | Encounter Summary ---
Author Organization [facility] Address [address] [place] [address] Phone Care Team Providers Care Beater Room Supervisor Name Role Phone Catalina Gastelum MD Primary Care Provider + [phone] Quin Barragan DIRECTOR OF EXHIBIT DEVELOPMENT Unavailable +[phone] Jaylin Ribeiro DIRECTOR OF EXHIBIT DEVELOPMENT Unavailable +[phone] Sabine Harrison RN Unavailable MICHELLE [email or web address]. Ivon Vitale RN Unavailable Oralia [email or web address] Zara Emerson PA-C Unavailable + Jada Mayfield MD, MPH Unavailable + [phone] Encounter Details Date Type Department Care Team (Late st Contact Info) Description 12/07/2023 Procedure Pass [facility], [facility] [place] [address], [address] [place] [address] Social History Tobacco Use Types Packs/Day Years [...] AM EST Blood Draw Laboratory Services, [address], [address] [place] [address] Reid Muhammda MD [address] [place] [address] [email or web address] 09/13/2025 11:00 AM EST Office Visit [facility], [address], [place] [address] Derrick Munoz MD [address] [place] [address] Olegario@[facility] 03/21/2026 1:00 PM EDT Office Visit [facility], [address], [address] [place] [address] Andres Banks MD, PhD [address] [place] [address] documented as of this encounter Visit Diagnoses Not on filedocumented in this encounter Care Teams Beater Room Supervisor Relationship Specialty Start Date End Date Catalina Gastelum MD PCP - General Internal Medicine 04/09/22 Quin Barragan [address] [address] Shira@[facility] Behaviour Support Teacher 04/28/22 Jaylin Ribeiro, [address] [address] Rhiannon@[facility] Behaviour Support Teacher Oncology 05/12/22 Sabine Harrison, RN [address] [place] [address] JOSÉ [email or web address]@[facility] Primary Infusion Nurse 05/19/22 Ivon Cameron, RN [address] [place] [address] Marquez@[email or web address] Associate Infusion Nurse 05/19/22 Zara Emerson PA-C [address] [place] [address] [email or web address] Physician Camera Technician 06/15/23 Jada Mayfield MD, MPH [address] [place] [address] [email or web address] Radiation Oncology 06/15/23 documented as of this encounter Additional Source Comments The information contained in this document represents components of the legal health record. It is not the complete legal health record.[facility]
--- OUTSIDE RECORDS SUMMARY | 2025-06-13 20:20 | XMS_ITS | Encounter Summary ---
Author Organization [facility] Address [address] [place] [address] Phone Care Team Providers Care Technical Sourcing Recruiter Name Role Phone Catalina Gastelum MD Primary Care Provider + [phone] Qiun Barragan DIRECTOR OF EMPLOYEE DEVELOPMENT Unavailable +[phone] Jaylin Ribeiro DIRECTOR OF EMPLOYEE DEVELOPMENT Unavailable +[phone] Sabine Harrison RN Unavailable MICHELLE [email or web address]. Ivon Vitale RN Unavailable Oralia [email or web address] [email or web address] Zara Emerson PA-C Unavailable + Jada Mayfield MD, MPH Unavailable + [phone] Encounter Details Date Type Department Care Team (Late st Contact Info) Description 11/06/2022 Procedure Pass [facility] Imaging Department, [facility] [place], [place] [address] [facility], [address] [place] [address] Social History Tobacco Use Types Packs/Day Years [...] 10:20 AM EST Blood Draw Laboratory Services, [address], [address] [place] [address] Reid Muhammad MD [address] [place] [address] [email or web address] 09/13/2025 11:00 AM EST Office Visit [facility], [address], [address] [place] [address] Derrick Munoz MD [address] [place] [address] Olegario@[facility] 03/21/2026 1:00 PM EDT Office Visit [facility], [address], [address] [place] [address] Andres Banks MD, PhD [address] [place] [address] [email or web address] documented as of this encounter Visit Diagnoses Not on filedocumented in this encounter Care Teams Technical Sourcing Recruiter Relationship Specialty Start Date End Date Catalina Gastelum MD PCP - General Internal Medicine 04/09/22 Quin Barragan LICSW [address] [place] [address] Shira@[facility] Seam Hammerer 04/28/22 Jaylin Ribeiro, DIRECTOR OF EMPLOYEE DEVELOPMENT [address] [place] [address] Rhiannon@[facility] Seam Hammerer Oncology 05/12/22 Sabine Harrison, RN [address] [place] [address] JOSÉ MIGUEL@[email or web address] Primary Infusion Nurse 05/19/22 Ivon Cameron RN [address] [place] [address] Marquez@[email or web address] Associate Infusion Nurse 05/19/22 Zara Emerson PA-C [address] [place] [address] and Women's [place], [place] [email or web address] Physician Entry Operator 06/15/23 Jada Mayfield MD, MPH [address] [place] [address] Francy@[email or web address] Radiation Oncology 06/15/23 documented as of this encounter Additional Source Comments The information contained in this document represents components of the legal health record. It is not the complete legal health record.[facility]
--- OUTSIDE RECORDS SUMMARY | 2025-06-13 20:20 | XMS_ITS | Encounter Summary ---
Author Organization [facility] Address [address] [place] [address] Phone Care Team Providers Care Second Watch Sergeant Name Role Phone Catalina Gastelum MD Primary Care Provider + [phone] Quin Barragan HEALTHCARE FINANCIAL ANALYST Unavailable +[phone] Jaylin Ribeiro HEALTHCARE FINANCIAL ANALYST Unavailable +[phone] Sabine Harrison RN Unavailable MICHELLE [email or web address]. Ivon Vitale RN Unavailable Oralia [email or web address]. [email or web address] Zara Emerson PA-C Unavailable + Jada Mayfield MD, MPH Unavailable + [phone] Encounter Details Date Type Department Care Team (Late st Contact Info) Description 06/03/2022 Prep for Surgery [facility] [address] [address] Nery Campbell PA-C [address] [place] [address] [email or web address] Social History Tobacco Use Types Packs/Day [...] 10:20 AM EST Blood Draw Laboratory Services, [address] [place] [address] Reid Muhammad MD [address] [place] [address] [email or web address] 09/13/2025 11:00 AM EST Office Visit [facility], [address], [address] [place] [address] Derrick Munoz MD [address] [place] [address] Olegario@[facility] 03/21/2026 1:00 PM EDT Office Visit [facility], [address], [address] [place] [address] Andres Banks MD, PhD [address] [place] [address] documented as of this encounter Visit Diagnoses Not on filedocumented in this encounter Care Teams Second Watch Sergeant Relationship Specialty Start Date End Date Catalina Gastelum MD PCP - General Internal Medicine 04/09/22 Quin Barragan, [address] [address] [email or web address] Sculpture Instructor 04/28/22 Jaylin Ribeiro, HEALTHCARE FINANCIAL ANALYST [address] [place] [address] [email or web address]@[email or web address] Sculpture Instructor Oncology 05/12/22 Sabine Harrison, RN [address] [place] [address] JOSÉ MIGUEL@[facility] Primary Infusion Nurse 05/19/22 Ivon Cameron RN [address] [place] [address] Marquez@[email or web address] Associate Infusion Nurse 05/19/22 Zara Emerson PA-C [address] [place] [address] [email or web address] Physician Gold Buyer 06/15/23 Jada Mayfield MD, MPH [address] [place] [address] [email or web address] Radiation Oncology 06/15/23 documented as of this encounter Additional Source Comments The information contained in this document represents components of the legal health record. It is not the complete legal health record.[facility]
--- OUTSIDE RECORDS SUMMARY | 2025-06-13 20:21 | XMS_ITS | Encounter Summary ---
Author Organization [facility] Address [address] [facility] [address] [place] [address] Phone Care Team Providers Care Medicare Sales Representative Name Role Phone Catalina Gastelum MD Primary Care Provider + [phone] Quin Barragan MACHINE FELLER Unavailable +[phone] Jaylin Ribeiro MACHINE FELLER Unavailable +[phone] Sabine Harrison RN Unavailable MICHELLE [email or web address]. Ivon Vitale RN Unavailable Oralia [email or web address]. [facility] Zara Emerson PA-C Unavailable + Jada Mayfield MD, MPH Unavailable + [phone] Encounter Details Date Type Department Care Team (Late st Contact Info) Description 04/20/2022 Procedure Pass [facility] [address]iop [address] [place] [address] Social History Tobacco Use Types Packs/Day Years [...] 10:20 AM EST Blood Draw Laboratory Services, [address] [place] [address] Reid Muhammad MD [address] [place] [address] [email or web address] 09/13/2025 11:00 AM EST Office Visit [facility], [address], [address] [place] [address] Derrick Munoz MD [address] [place] [address] Olegario@[facility] 03/21/2026 1:00 PM EDT Office Visit [facility], [address], [address] [place] [address] Andres Banks MD, PhD [address] [place] [address] [email or web address] documented as of this encounter Visit Diagnoses Not on filedocumented in this encounter Care Teams Medicare Sales Representative Relationship Specialty Start Date End Date Catalina Gastelum MD PCP - General Internal Medicine 04/09/22 Quin Barragan LICSW [address] [place] [address] [email or web address] Supervisor Car And Yard 04/28/22 Jaylin Ribeiro, [address] [address] Rhiannon@[facility] Supervisor Car And Yard Oncology 05/12/22 Sabine Harrison, RN [address] [place] [address] JOSÉ MIGUEL@[facility] Primary Infusion Nurse 05/19/22 Ivon Cameron, RN [address] [place] [address] Marquez@[email or web address] Associate Infusion Nurse 05/19/22 Zara Emerson PA-C [address] [place] [address] [email or web address] Physician Brokerage Clerk 06/15/23 Jada Mayfield MD, MPH [address] [place] [address] Francy@[facility] Radiation Oncology 06/15/23 documented as of this encounter Additional Source Comments The information contained in this document represents components of the legal health record. It is not the complete legal health record.[facility]
== END 2025-06-13 14:53 | disposition home or self-care (01) ==
LOC: HO.HOP 14:07
PROVIDERS: PCP Internal Medicine; Visit Provider Clinical Nurse Specialist Psychiatric/Mental Health, Adult
DX: F41.1 Generalized anxiety disorder (principal); F39 Unspecified mood [affective] disorder
CPT/HCPCS: 99213

== ENCOUNTER → 2025-06-13 14:07 | Outpatient (BNVA) | payer MEDICARE, MEDICAID, SELFPAY | PROVIDERS: PCP Internal Medicine; Visit Provider Clinical Nurse Specialist Psychiatric/Mental Health, Adult | DX: F41.1 Generalized anxiety disorder (principal); F39 Unspecified mood [affective] disorder | CPT/HCPCS: 99212 ==

== ENCOUNTER 2025-07-11 14:05 | Outpatient (AMB) | payer MEDICARE, MEDICAID, SELFPAY ==
--- OUTSIDE RECORDS SUMMARY | 2025-07-12 02:24 | XMS_ITS | Encounter Summary ---
Author Organization [facility] Address [address] [place] [address] Phone Care Team Providers Care Fine Grade Operator Name Role Phone Catalina Gastelum MD Primary Care Provider + [phone] Quin Barragan BIRTH CERTIFICATE CLERK Unavailable +[phone] Jaylin Ribeiro BIRTH CERTIFICATE CLERK Unavailable [phone] Sabine Harrison RN Unavailable MICHELLE [email or web address]. Ivon Vitale RN Unavailable Oralia [email or web address] Zara Emerson PA-C Unavailable + Jada Mayfield MD, MPH Unavailable + [phone] Encounter Details Date Type Department Care Team (Late st Contact Info) Description 06/03/2022 Prep for Surgery [facility]'s [address] [address] Nery Campbell PA-C [address] [place] [address] [email or web address] Social History Tobacco Use Types Packs/Day Years [...] Campbell PA-C - 06/03/2022 5:19 PM EDT [facility] Metabolic Support Service Phone Screen NAME: Tyler [...] adenopathy. Currently receiving weekly cisplatin and XRT. [facility] [place] for PEG placement for [...] 125 mcg by mouth every morning. ??? svuzfnxra-llmcegyhjekfrsu-hlfy-mag-simethicone (MAGIC MOUTHWASH-BLM) [id number] mg/30mL suspension Swish and spit 10 mL [...] indicated. Nery Campbell PA-C Metabolic Support Service [facility] Office [phone] Pager [phone] documented in this encounter Plan of Treatment Upcoming Encounters Date Type Department Care Team (Late st Contact Info) Description 09/13/2025 10:20 AM EST Blood Draw Laboratory Services, [address], [address]nd [place] [address] Reid Muhammad MD [address] [place] [address] [email or web address] 09/13/2025 11:00 AM EST [facility], [address], [place] [address] Derrick Munoz MD [address] [place] [address] Olegario@[facility] 03/21/2026 1:00 PM EDT Office Visit [facility], [address], [address] [place] [address] Andres Banks MD, PhD [address] [place] [address] [email or web address] documented as of this encounter Visit Diagnoses Not on filedocumented in this encounter Care Teams Fine Grade Operator Relationship Specialty Start Date End Date Catalina Gastelum MD PCP - General Internal Medicine 04/09/22 Quin Barragan, [address] [address] Shira@[facility] General Ii Farmworker 04/28/22 Jaylin Ribeiro, [address] [address] Rhiannon@[facility] General Ii Farmworker Oncology 05/12/22 Sabine Harrison, RN [address] [place] [address] JOSÉ MIGUEL@[email or web address] Primary Infusion Nurse 05/19/22 Ivon Cameron, RN [address] [place] [address] Marquez@[email or web address] Associate Infusion Nurse 05/19/22 Zara Emerson PA-C [address] [place] [address] [place] [address] [email or web address] Physician Optoelectronics Engineer 06/15/23 Jada Mayfield MD, MPH [address] [place] [address] [email or web address] Radiation Oncology 06/15/23 documented as of this encounter Additional Source Comments The information contained in this document represents components of the legal health record. It is not the complete legal health record.[facility]
--- OUTSIDE RECORDS SUMMARY | 2025-07-12 02:24 | XMS_ITS | Encounter Summary ---
Author Organization [facility] Address [address] [place] [address] Phone Care Team Providers Care Able Bodied Seaman Name Role Phone Catalina Gastelum MD Primary Care Provider + [phone] Quin Barragan HANDLING TECH Unavailable +[phone] Jaylin Ribeiro HANDLING TECH Unavailable +[phone] Sabine Harrison RN Unavailable MICHELLE [email or web address]. Ivon Vitale RN Unavailable Oralia [email or web address]. [facility] Zara Emerson PA-C Unavailable + Jada Mayfield MD, MPH Unavailable + [phone] Encounter Details Date Type Department Care Team (Late st Contact Info) Description 06/04/2022 Procedure Pass [facility] Periop [address] [place] [address] Social History Tobacco Use Types Packs/Day Years [...] AM EST Blood Draw Laboratory Services, [address], [address] [place] [address] Reid Muhammad MD [address] [place] [address] [email or web address] 09/13/2025 11:00 AM EST Office Visit [facility], [address], [address] [place] [address] Derrick Munoz MD [address] [place] [address] Olegario@[facility] 03/21/2026 1:00 PM EDT Office Visit [facility], [address], [address] [place] [address] Andres Banks MD, PhD [address] [place] [address] [email or web address] documented as of this encounter Visit Diagnoses Not on filedocumented in this encounter Care Teams Able Bodied Seaman Relationship Specialty Start Date End Date Catalina Gastelum MD PCP - General Internal Medicine 04/09/22 Quin Barragan LICSW [address] [place] [address] [email or web address] Application Systems Administrator 04/28/22 Jaylin Ribeiro, [address] [address] Rhiannon@[facility] Application Systems Administrator Oncology 05/12/22 Sabine Harrison, RN [address] [place] [address] JOSÉ MIGUEL@[facility] Primary Infusion Nurse 05/19/22 Ivon Cameron, RN [address] [place] [address] [email or web address] Associate Infusion Nurse 05/19/22 Zara Emerson PA-C [address] [place] [address] [email or web address] Physician Mainframe Developer 06/15/23 Jada Mayfield MD, MPH [address] [place] [address] [email or web address] Radiation Oncology 06/15/23 documented as of this encounter Additional Source Comments The information contained in this document represents components of the legal health record. It is not the complete legal health record.[facility]
--- OUTSIDE RECORDS SUMMARY | 2025-07-12 02:26 | XMS_ITS | Encounter Summary ---
Author Organization [facility] Address [address] [place] [address] Phone Care Team Providers Care Rubber Cutter Name Role Phone Catalina Gastelum MD Primary Care Provider + [phone] Quin Barragan COMPANY TRUCK DRIVER Unavailable +[phone] Jaylin Ribeiro COMPANY TRUCK DRIVER Unavailable +[phone] Sabine Harrison RN Unavailable MICHELLE [email or web address]. Ivon Vitale RN Unavailable Oralia [email or web address] [facility] Zara Emerson PA-C Unavailable + Jada Mayfield MD, MPH Unavailable + [phone] Encounter Details Date Type Department Care Team (Late st Contact Info) Description 11/06/2022 Procedure Pass [facility] Imaging [facility], [facility] [place] [address], [address] [place] [address] Social History Tobacco Use Types Packs/Day Years [...] AM EST Blood Draw Laboratory Services, [address], [address] [place] [address] Reid Muhammad MD [address] [place] [address] [email or web address] 09/13/2025 11:00 AM EST Office Visit [facility], [address], [address] [place] [address] Derrick Munoz MD [address] [place] [address] Olegario@[facility] 03/21/2026 1:00 PM EDT Office Visit [facility], [address], [address] [place] [address] Andres Banks MD, PhD [address] [place] [address] [email or web address] documented as of this encounter Visit Diagnoses Not on filedocumented in this encounter Care Teams Rubber Cutter Relationship Specialty Start Date End Date Catalina Gastelum MD PCP - General Internal Medicine 04/09/22 Quin Barragan LICSW [address] [place] [address] Shira@[facility] Fashion Marketer 04/28/22 Jaylin Ribeiro, COMPANY TRUCK DRIVER [address] [place] [address] Rhiannon@[facility] Fashion Marketer Oncology 05/12/22 Sabine Harrison, RN [address] [place] [address] JOSÉ MIGUEL@[facility] Primary Infusion Nurse 05/19/22 Ivon Cameron RN [address] [place] [address] Marquez@[email or web address] Associate Infusion Nurse 05/19/22 Zara Emerson PA-C [address] [place] [address] and Women's [place], [place] [email or web address] Physician Microfilm Camera Operator 06/15/23 Jada Mayfield MD, MPH [address] [place] [address] [email or web address] Radiation Oncology 06/15/23 documented as of this encounter Additional Source Comments The information contained in this document represents components of the legal health record. It is not the complete legal health record.[facility]
--- OUTSIDE RECORDS SUMMARY | 2025-07-12 02:26 | XMS_ITS | Encounter Summary ---
Author Organization [facility] Address [address] [place] [address] Phone Care Team Providers Care Bottle Washer Machine Name Role Phone Catalina Gastelum MD Primary Care Provider + [phone] Quin Barragan ELECTRICAL UNIT REBUILDER Unavailable +[phone] Jaylin Ribeiro ELECTRICAL UNIT REBUILDER Unavailable +[phone] Sabine Harrison RN Unavailable MICHELLE [email or web address]. Ivon Vitale RN Unavailable Oralia [email or web address] [facility] Zara Emerson PA-C Unavailable + Jada Mayfield MD, MPH Unavailable + [phone] Encounter Details Date Type Department Care Team (Late st Contact Info) Description 12/07/2023 Procedure Pass [facility] Imaging Department, [facility] [place], [place] [address], [address] [place] [address] Social History Tobacco Use Types Packs/Day Years [...] 10:20 AM EST Blood Draw Laboratory Services, [address], [address] [place] [address] Reid Muhammad MD [address] [place] [address] [email or web address] 09/13/2025 11:00 AM EST Office Visit [facility], [address], [place] [address] Derrick Munoz MD [address] [place] [address] Olegario@[facility] 03/21/2026 1:00 PM EDT Office Visit [facility], [address], [address] [place] [address] Andres Banks MD, PhD [address] [place] [address] documented as of this encounter Visit Diagnoses Not on filedocumented in this encounter Care Teams Bottle Washer Machine Relationship Specialty Start Date End Date Catalina Gastelum MD PCP - General Internal Medicine 04/09/22 Quin Barragan [address] [address] Shira@[facility] Transformer Assembly Supervisor 04/28/22 Jaylin Ribeiro, [address] [address] Rhiannon@[facility] Transformer Assembly Supervisor Oncology 05/12/22 Sabine Harrison, RN [address] [place] [address] JOSÉ MIGUEL@[facility] Primary Infusion Nurse 05/19/22 Ivon Cameron, RN [address] [place] [address] Marquez@[email or web address] Associate Infusion Nurse 05/19/22 Zara Emerson PA-C [address] [place] [address] [email or web address] Physician Gill Box Operator 06/15/23 Jada Mayfield MD, MPH [address] [place] [address] [email or web address] Radiation Oncology 06/15/23 documented as of this encounter Additional Source Comments The information contained in this document represents components of the legal health record. It is not the complete legal health record.[facility]
--- OUTSIDE RECORDS SUMMARY | 2025-07-12 02:26 | XMS_ITS | Encounter Summary ---
Author Organization [facility] Address [address] [place] [address] Phone Care Team Providers Care Black Studies Professor Name Role Phone Catalina Gastelum MD Primary Care Provider + [phone] Quin Barragan WOOD CLUB NECK WHIPPER Unavailable +[phone] Jaylin Ribeiro WOOD CLUB NECK WHIPPER Unavailable +[phone] Sabine Harrison RN Unavailable MICHELLE [email or web address]. Ivon Vitale RN Unavailable Oralia [email or web address]. [facility] Zara Emerson PA-C Unavailable + Jada Mayfield MD, MPH Unavailable + [phone] Encounter Details Date Type Department Care Team (Late st Contact Info) Description 04/20/2022 Procedure Pass [facility] Periop [address] [place] [address] Social History Tobacco Use Types Packs/Day Years [...] 10:20 AM EST Blood Draw Laboratory Services, [address], [address] [place] [address] Reid Muhammad MD [address] [place] [address] [email or web address] 09/13/2025 11:00 AM EST Office Visit [facility], [address], [address] [place] [address] Derrick Munoz MD [address] [place] [address] Olegario@[facility] 03/21/2026 1:00 PM EDT Office Visit [facility], [address], [address] [place] [address] Andres Banks MD, PhD [address] [place] [address] [email or web address] documented as of this encounter Visit Diagnoses Not on filedocumented in this encounter Care Teams Black Studies Professor Relationship Specialty Start Date End Date Catalina Gastelum MD PCP - General Internal Medicine 04/09/22 Quin Barragan LICSW [address] [place] [address] Shira@[email or web address] Baseball Hand Sewer 04/28/22 Jaylin Ribeiro, [address] [address] Rhiannon@[facility] Baseball Hand Sewer Oncology 05/12/22 Sabine Harrison, RN [address] [place] [address] JOSÉ MIGUEL@[facility] Primary Infusion Nurse 05/19/22 Ivon Cameron, RN [address] [place] [address] Marquez@[email or web address] Associate Infusion Nurse 05/19/22 Zara Emerson PA-C [address] [place] [address] [email or web address] Physician Assembler Engine 06/15/23 Jada Mayfield MD, MPH [address] [place] [address] [email or web address] Radiation Oncology 06/15/23 documented as of this encounter Additional Source Comments The information contained in this document represents components of the legal health record. It is not the complete legal health record.[facility]
--- OUTSIDE RECORDS SUMMARY | 2025-07-12 02:26 | XMS_ITS | Encounter Summary ---
Author Organization [facility] Address [address] [place] [address] Phone Care Team Providers Care Magnetizer Name Role Phone Catalina Gastelum MD Primary Care Provider + [phone] Quin Barragan AGILE DEVELOPER Unavailable +[phone] Jaylin Ribeiro AGILE DEVELOPER Unavailable +[phone] Sabine Harrison RN Unavailable MICHELLE [email or web address]. Ivon Vitale RN Unavailable Oralia [email or web address] [facility] Zara Emerson PA-C Unavailable + Jada Mayfield MD, MPH Unavailable + [phone] Encounter Details Date Type Department Care Team (Late st Contact Info) Description 07/23/2022 Procedure Pass [facility] [address] [place] [address] Social History Tobacco Use Types Packs/Day Years [...] 07/23/2022 10:28 PM Reid Espinoza, ALY * [place] Suicide Severity Rating Scale (Screener/Recent Self-Report) Question [...] AM EST Blood Draw Laboratory Services, [address], [address] [place] [address] Reid Muhammad MD [address] [place] [address] [email or web address] 09/13/2025 11:00 AM EST Office Visit [facility], [address], [place] [address] Derrick Munoz MD [address] [place] [address] Olegario@[facility] 03/21/2026 1:00 PM EDT Office Visit [facility], [address], [address], [place] [address] Andres Banks MD, PhD [address] [place] [address] [email or web address] documented as of this encounter Visit Diagnoses Not on filedocumented in this encounter Care Teams Magnetizer Relationship Specialty Start Date End Date Catalina Gastelum MD PCP - General Internal Medicine 04/09/22 Quin Barragan, [address] [address] Shira@[facility] Telephone Services Sales Representative 04/28/22 Jaylin Ribeiro, [address] [address] Rhiannon@[facility] Telephone Services Sales Representative Oncology 05/12/22 Sabine Harrison, RN [address] [place] [address] JOSÉ MIGUEL@[facility] Primary Infusion Nurse 05/19/22 Ivon Cameron RN [address] [place] [address] Marquez@[facility] Associate Infusion Nurse 05/19/22 Zara Eemrson PA-C [address] [place] [address] [email or web address] Physician Grease Press Helper 06/15/23 Jada Mayfield MD, MPH [address] [place] [address] Francy@[email or web address] Radiation Oncology 06/15/23 documented as of this encounter Additional Source Comments The information contained in this document represents components of the legal health record. It is not the complete legal health record.[facility]
--- OUTSIDE RECORDS SUMMARY | 2025-07-12 02:26 | XMS_ITS | Encounter Summary ---
Author Organization [facility] Address [address] [place] [address] Phone Care Team Providers Care Annealer Helper Name Role Phone Catalina Gastelum MD Primary Care Provider + [phone] Quin Barragan HAT MAKER Unavailable +[phone] Jaylin Ribeiro HAT MAKER Unavailable +[phone] Sabine Harrison RN Unavailable MICHELLE [email or web address]. Ivon Vitale RN Unavailable Oralia [email or web address]. [facility] Zara Emerson PA-C Unavailable + Jada Mayfield MD, MPH Unavailable + [phone] Encounter Details Date Type Department Care Team (Late st Contact Info) Description 12/07/2023 Procedure Pass [facility]ud[facility] Imaging Department, [facility] [place], [place] [address] [facility] [facility] [address] [facility], [address] [place] [address] Social History Tobacco Use Types Packs/Day Years [...] 10:20 AM EST Blood Draw Laboratory Services, [address], 2[address] [place] [address] Reid Muhammad MD [address] [place] [address] [email or web address] 09/13/2025 11:00 AM EST Office [facility], [address], [place] [address] Derrick Munoz MD [address] [place] [address] Olegario@[facility] 03/21/2026 1:00 PM EDT Office Visit [facility], [address], [address] [place] [address] Andres Banks MD, PhD [address] [place] [address] documented as of this encounter Visit Diagnoses Not on filedocumented in this encounter Care Teams Annealer Helper Relationship Specialty Start Date End Date Catalina Gastelum MD PCP - General Internal Medicine 04/09/22 Quin Barragan [address] [address] Shira@[facility] Dredge Lever Operator 04/28/22 Jaylin Ribeiro, [address] [address] Rhiannon@[facility] Dredge Lever Operator Oncology 05/12/22 Sabine Harrison, RN [address] [place] [address] JOSÉ MIGUEL@[facility] Primary Infusion Nurse 05/19/22 Ivon Cameron, RN [address] [place] [address] Marquez@[facility] Associate Infusion Nurse 05/19/22 Zara Emerson PA-C [address] [place] [address] [email or web address] Physician Wealth Management Director 06/15/23 Jada Mayfield MD, MPH [address] [place] [address] Francy@[email or web address] Radiation Oncology 06/15/23 documented as of this encounter Additional Source Comments The information contained in this document represents components of the legal health record. It is not the complete legal health record.[facility]
--- OUTSIDE RECORDS SUMMARY | 2025-07-12 02:26 | XMS_ITS | Encounter Summary ---
Author Organization [facility] Address [address] [place] [address] Phone Care Team Providers Care Circular Distributor Name Role Phone Catalina Gastelum MD Primary Care Provider + [phone] Quin Barragan CONVENIENCE STORE MANAGER Unavailable +[phone] Jaylin Ribeiro CONVENIENCE STORE MANAGER Unavailable [phone] Sabine Harrison RN Unavailable MICHELLE [email or web address]. Ivon Vitale RN Unavailable Oralia [email or web address]. [facility] Zara Emerson PA-C Unavailable + Jada Mayfield MD, MPH Unavailable + [phone] Encounter Details Date Type Department Care Team (Late st Contact Info) Description 10/01/2022 Telephone [facility], [facility] [place] [address] [place] [address], 11th [place] [address] Evan Vigil, RN [address] [place] [address] Braydon@[facility] Social History Tobacco Use [...] 10:20 AM EST Blood Draw Laboratory Services, [address], [address] [place] [address] Reid Muhammad MD [address] [place] [address] [email or web address] 09/13/2025 11:00 AM EST Office Visit [facility], [address], [address] [place] [address] Derrick Munoz MD [address] [place] [address] Olegario@[facility] 03/21/2026 1:00 PM EDT Office Visit [facility], [address], [address] [place] [address] Andres Banks MD, PhD [address] [place] [address] documented as of this encounter Visit Diagnoses Not on filedocumented in this encounter Care Teams Circular Distributor Relationship Specialty Start Date End Date Catalina Gastelum MD PCP - General Internal Medicine 04/09/22 Quin Barragan, [address] [address] [email or web address] Bread Jockey 04/28/22 Jaylin Ribeiro, [facility] [address] [place] [address] Rhiannon@[facility] Bread Jockey Oncology 05/12/22 Sabine Harrison, RN [address] [place] [address] JOSÉ MIGUEL@[facility] Primary Infusion Nurse 05/19/22 Ivon Cameron, ALY [address] [place] [address] Marquez@[email or web address] Associate Infusion Nurse 05/19/22 Zara Emerson PA-C [address] [place] [address] [place] [address] [email or web address] Physician Prefabricated Houses Trimmer 06/15/23 Jada Mayfield MD, MPH [address] [place] [address] [email or web address] Radiation Oncology 06/15/23 documented as of this encounter Additional Source Comments The information contained in this document represents components of the legal health record. It is not the complete legal health record.[facility]
--- OUTSIDE RECORDS SUMMARY | 2025-07-12 02:26 | XMS_ITS | Encounter Summary ---
Author Organization [facility] Address [address] [place] [address] Phone Care Team Providers Care Pharmacy Services Director Name Role Phone Catalina Gastelum MD Primary Care Provider + [phone] Quin Barragan DIRECTOR PHARMACOLOGY Unavailable +[phone] Jaylin Ribeiro DIRECTOR PHARMACOLOGY Unavailable [phone] Sabine Harrison RN Unavailable MICHELLE [email or web address]. Ivon Vitale RN Unavailable Oralia [email or web address] Zara Emerson PA-C Unavailable + Jada Mayfield MD, MPH Unavailable +- [phone] Encounter Details Date Type Department Care Team (Late st Contact Info) Description 09/29/2022 Procedure Pass Trudy Lank Imaging Department, [facility] [place], PET/CT [address] [place] [address] Social History Tobacco Use Types Packs/Day Years [...] 10:20 AM EST Blood Draw Laboratory Services, [address], [address] [place] [address] Reid Muhammad MD [address] [place] [address] [email or web address] 09/13/2025 11:00 AM EST [facility], [address], [address] [place] [address] Derrick Munoz MD [address] [place] [address] [email or web address] 03/21/2026 1:00 PM EDT Office Visit [facility], [address], [address] [place] [address] Andres Banks MD, PhD [address] [place] [address] [email or web address] documented as of this encounter Visit Diagnoses Not on filedocumented in this encounter Care Teams Pharmacy Services Director Relationship Specialty Start Date End Date Catalina Gastelum MD PCP - General Internal Medicine 04/09/22 Quin Barragan [address] [address] [email or web address] Checkroom Chief 04/28/22 Jaylin Ribeiro, [address] [address] [email or web address] Checkroom Chief Oncology 05/12/22 Sabine Harrison, ALY [address] [place] [address] JOSÉ [email or web address] Primary Infusion Nurse 05/19/22 Ivon Cameron RN [address] [place] [address] [email or web address] Associate Infusion Nurse 05/19/22 Zara Emerson PA-C [address] [place] [address] [email or web address] Physician Camp Recreation Specialist 06/15/23 Jada Mayfield MD, MPH [address] [place] [address] [email or web address] Radiation Oncology 06/15/23 documented as of this encounter Additional Source Comments The information contained in this document represents components of the legal health record. It is not the complete legal health record.[facility]
--- OUTSIDE RECORDS SUMMARY | 2025-07-12 02:26 | XMS_ITS ---
Author Organization [facility] Address [address] [place] [address] Phone Care Team Providers Care Us Marketing Director Name Role Phone Catalina Gastelum MD Primary Care Provider + [phone] Quin Barragan FIXED INTEREST DEALER Unavailable +[phone] Jaylin Ribeiro FIXED INTEREST DEALER Unavailable +[phone] Sabine Harrison RN Unavailable [email or web address]. Ivon Vitale RN Unavailable Oralia [email or web address] Zara Emerson PA-C Unavailable + Jada Mayfield MD, MPH Unavailable +- [phone] Active Problems Problem Noted Date Diagnosed Date [...] if unable to do this by mouth. RESIDENTIAL PROGRAM WORKER Support: As needed Emotional: Coping well Assessment [...] if unable to do this by mouth. RESIDENTIAL PROGRAM WORKER Support: As needed Emotional: Coping well Assessment [...] if unable to do this by mouth. RESIDENTIAL PROGRAM WORKER Support: As needed Emotional: Coping well Assessment [...] if unable to do this by mouth. RESIDENTIAL PROGRAM WORKER Support: As needed Emotional: Coping well Assessment [...] if unable to do this by mouth. RESIDENTIAL PROGRAM WORKER Support: As needed Emotional: Coping well Assessment & Plan (06/13/2022 9:19 PM EDT): Treatment: Weekly Cisplatin + XRT OK to continue treatment today: C1 D22 Pain Management: Acetaminophen Nausea Management: Metoclopramide, Ondansetron, Dexamethasone and Lorazepam Bowel Regimen: Colace and Senna Oral Care / Dental Hygiene: Oral rinses as indicated Nutritional Support: Tolerating full oral diet. Weight is down. RESIDENTIAL PROGRAM WORKER Support: As needed Emotional: Coping well Assessment [...] Tolerating full oral diet. Weight is down. RESIDENTIAL PROGRAM WORKER Support: As needed Emotional: Coping well Assessment [...] Tolerating full oral diet. Weight is down. RESIDENTIAL PROGRAM WORKER Support: As needed Emotional: Coping well Current [...]
--- OUTSIDE RECORDS SUMMARY | 2025-07-12 02:26 | XMS_ITS | Encounter Summary ---
Author Organization [facility] Address [address] [place] [address] Phone Care Team Providers Care Adult Basic Education Teacher Name Role Phone Catalina Gastelum MD Primary Care Provider + [phone] Quin Barragan SENIOR RECRUITMENT CONSULTANT Unavailable +[phone] Jaylin Ribeiro SENIOR RECRUITMENT CONSULTANT Unavailable [phone] Sabine Harrison RN Unavailable [email or web address] Ivon Vitale RN Unavailable Oralia [email or web address] Zara Emerson PA-C Unavailable + Jada Mayfield MD, MPH Unavailable + [phone] Encounter Details Date Type Department Care Team (Late st Contact Info) Description 11/06/2022 Procedure Pass Trudy Lank Imaging Department, [facility] [place], [place] [address] [facility], [address] [place] [address] Social History Tobacco Use Types Packs/Day Years [...] AM EST Blood Draw Laboratory Services, [address], [address] [place] [address] Reid Muhammad MD [address] [place] [address] [email or web address] 09/13/2025 11:00 AM EST Office Visit [facility], [address], [address] [place] [address] Derrick Munoz MD [address] [place] [address] Olegario@[email or web address] 03/21/2026 1:00 PM EDT Office Visit [facility], [address], [address] [place] [address] Andres Banks MD, PhD [address] [place] [address] [email or web address] documented as of this encounter Visit Diagnoses Not on filedocumented in this encounter Care Teams Adult Basic Education Teacher Relationship Specialty Start Date End Date Catalina Gastelum MD PCP - General Internal Medicine 04/09/22 Quin Barragan LICSW [address] [place] [address] [email or web address] Fire Extinguisher Technician 04/28/22 Jaylin Ribeiro, SENIOR RECRUITMENT CONSULTANT [address] [place] [address] [email or web address] Fire Extinguisher Technician Oncology 05/12/22 Sabine Harrison, RN [address] [place] [address] JOSÉ [email or web address] Primary Infusion Nurse 05/19/22 Ivon Cameron RN [address] [place] [address] [email or web address] Associate Infusion Nurse 05/19/22 Zara Emerson PA-C [address] [place] [address] and [facility] [place], [place] [email or web address] Physician Patternmaker Grader 06/15/23 Jada Mayfield MD, MPH [address] [place] [address] [email or web address] Radiation Oncology 06/15/23 documented as of this encounter Additional Source Comments The information contained in this document represents components of the legal health record. It is not the complete legal health record.[facility]
--- OUTSIDE RECORDS SUMMARY | 2025-07-12 02:26 | XMS_ITS | Encounter Summary ---
Author Organization [facility] Address [address] [place] [address] Phone Care Team Providers Care Log Pond Worker Name Role Phone Catalina Gastelum MD Primary Care Provider + [phone] Quin Barragan CERTIFIED LOW VISION THERAPIST Unavailable [phone] Jaylin Ribeiro CERTIFIED LOW VISION THERAPIST Unavailable [phone] Sabine Harrison RN Unavailable [email or web address]. Ivon Vitale RN Unavailable Oralia [email or web address] Zara Emerson PA-C Unavailable + Jada Mayfield MD, MPH Unavailable + [phone] Encounter Details Date Type Department Care Team (Late st Contact Info) Description 06/03/2022 Prep for Surgery [facility] [address] [address] Nery Campbell PA-C [address] [place] [address] [email or web address] Social History Tobacco Use Types Packs/Day [...] AM EST Blood Draw Laboratory Services, [address], [address] [place] [address] Reid Muhammad MD [address] [place] [address] [email or web address] 09/13/2025 11:00 AM EST Office Visit [facility], [address], [address] [place] [address] Derrick Munoz MD [address] [place] [address] [email or web address] 03/21/2026 1:00 PM EDT Office Visit [facility], [address], [address] [place] [address] Andres Banks MD, PhD [address] [place] [address] documented as of this encounter Visit Diagnoses Not on filedocumented in this encounter Care Teams Log Pond Worker Relationship Specialty Start Date End Date Catalina Gastelum MD PCP - General Internal Medicine 04/09/22 Quin Barragan, [address] [address] [email or web address] Dispatcher 04/28/22 Jaylin Ribeiro, CERTIFIED LOW VISION THERAPIST [address] [place] [address] [email or web address] City Dispatcher Oncology 05/12/22 Sabine Harrison, RN [address] [place] [address] JOSÉ [email or web address] Primary Infusion Nurse 05/19/22 Ivon Cameron RN [address] [place] [address] [email or web address] Associate Infusion Nurse 05/19/22 Zara Emerson PA-C [address] [place] [address] [email or web address] Physician Car Wash Attendant Automatic 06/15/23 Jada Mayfield MD, MPH [address] [place] [address] [email or web address] Radiation Oncology 06/15/23 documented as of this encounter Additional Source Comments The information contained in this document represents components of the legal health record. It is not the complete legal health record.[facility]
--- NOTE | 2025-08-19 18:03 | MHC.OFFVISPS ---
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 She reports Olanzapine and Lamictal to be effective and as a result she is tapering Quetiapine and Clorazepate. She also has stopped Sertraline she reports. Reports sleep and appetite are stabilizing Pt is calm, clear, much less anxious in appt today. Discussed some of her recent situational concerns- son, selling their home and her sister's health and she is clear, organized, with solid plans of how she is working with these issues. HPI Past Psychiatric History: Trials: Sertraline, Seroquel, Mirtazapine Subjective Subjective Medication Compliance: Yes Side effects from medications: No Review of Systems Medical Review of Systems: unchanged Mental Status Exam Mental Status Exam Patient Appearance: Appropriate Patient Orientation: Person, Place, Time and Situation Level of Consciousness: Alert Patient Behavior: Appropriate, Talkative and Good Eye Contact Mood Description: Appropriate Affect Description: Appropriate Patient Cognition Impaired: No Ability to Follow Directions: Good Speech Pattern: Spontaneous Speech Memory Description: Intact Hallucinations: None Delusions: Not Present Thought Process: Intact and Goal Oriented Thought Content: positive for Intact and positive for Goal Oriented Judgement: Good Assessment and Plan Assessment & Plan (1) Generalized anxiety disorder: Status: Acute Code(s): F41.1 - Generalized anxiety disorder (2) Depression: Status: Acute Qualifiers: Depression Type: major depressive disorder Major depression recurrence: recurrent Active/Remission status: in partial remission Qualified Code(s): F33.41 - Major depressive disorder, recurrent, in partial remission Code(s): F32.A - Depression, unspecified (3) Mood disorder: Status: Acute Code(s): F39 - Unspecified mood [affective] disorder Plan Continue current regime with pt decreasing quetiapine and clorzaepate. She has stopped Sertraline. Medications: Discontinued sertraline Discontinued Reason: Doctor's Order 25 mg (1/2 x 50 mg) PO DAILY 90 tabs 3RF Counseling and coordination of Care Medication management counseling: Effectiveness, Side effects, Dosing range, Duration, Drug interaction and Adherence Details: I spent [] minutes reviewing the record, seeing the patient and documenting in the medical record. Counseling provided to the patient/caregiver as outlined below. Addressed patient/caregiver concerns regarding current medication regime including effective adherence. Addressed patient/caregiver concerns regarding diagnosis and prognosis including accuracy of diagnosis, prognosis over time, impact of diagnosis. Addressed patient/caregiver concerns regarding impact of recent stressors. PFSH Medical History FHx: cholecystectomy Vitamin D deficiency Neck mass Multiple allergies Insomnia Hyperglycemia Hypercholesteremia Hiatal hernia H/O gastroesophageal reflux (GERD) Cervical radiculopathy Anxiety Surgical History History of appendectomy H/O: section Family History Mother Aneurysm HTN (hypertension) Sister Mental disorder Paternal Grandfather Heart attack Social History Alcohol intake: never Patient Tobacco Use Status: Current everyday Tobacco user Years Smoked: 57 e-Cigarette/Vaping Use: Never Used Second Hand Smoke Exposure: No service: No Current occupational status: retired Cognitive needs: No Hearing needs: Yes (difficulty hearing) Vision needs: Yes (glasses) Social History: Father was a investigations chief, sister with bipolar disorder and borderline personality. Pt's son is 36, he is my life Substance History: smoker of 57 years Trauma History: affirms Coding Level of Care Code Est Pt Level 3 (84364) Diagnoses Generalized anxiety disorder F41.1 Recurrent major depressive disorder, in partial remission F33.41 Depression Type: major depressive disorder Major depression recurrence: recurrent Active/Remission status: in partial remission Mood disorder F39
== END 2025-07-11 14:36 | disposition home or self-care (01) ==
LOC: HO.HOP 14:05
PROVIDERS: PCP Internal Medicine; Visit Provider Clinical Nurse Specialist Psychiatric/Mental Health, Adult
DX: F41.1 Generalized anxiety disorder (principal); F33.41 Major depressive disorder, recurrent, in partial remission; F39 Unspecified mood [affective] disorder
CPT/HCPCS: 99213

== ENCOUNTER → 2025-07-11 14:05 | Outpatient (BNVA) | payer MEDICARE, MEDICAID, SELFPAY | PROVIDERS: PCP Internal Medicine; Visit Provider Clinical Nurse Specialist Psychiatric/Mental Health, Adult | DX: F41.1 Generalized anxiety disorder (principal); F33.41 Major depressive disorder, recurrent, in partial remission; F39 Unspecified mood [affective] disorder | CPT/HCPCS: 99212 ==

== ENCOUNTER 2025-07-24 12:53 | Outpatient (REF) | payer BC, MEDICAID, SELFPAY ==
[2025-07-24 14:45] LABS: MANUAL DIFF FLAG NO
[2025-07-24 14:54] LABS: Hematocrit 36.8 % (37.0-47.0); Hemoglobin 12.5 g/dl (12.0-16.0); Imm Gran Abs Auto 0.01 X10*3/uL (0.00-0.03); Imm Gran Pct Auto 0.2 % (0.0-0.4); Lymphocytes Absolute Auto 1.2 X10*3/uL (1.2-4.9); Mean Corpuscular HGB Conc 34.0 g/dl (31.0-35.0); Mean Corpuscular Hemoglobin 31.8 pg (27.0-33.0); Mean Corpuscular Volume 93.6 fL (80.0-98.0); NRBC Abs Auto 0.000 X10*3/uL (0.0-0.012); NRBC Pct Auto 0.0 /100WBC (0.0-0.2); Platelet Count 231 X10*3/uL (160-400); Red Blood Count 3.93 X10*6/uL (4.20-5.50); White Blood Count 6.5 X10*3/uL (4.8-10.8)
[2025-07-24 15:22] LABS: Alanine Aminotransferase 39 U/L (0-31); Albumin Level 4.4 g/dL (3.5-5.0); Alkaline Phosphatase 139 U/L (39-117); Anion Gap 13 (12-20); Aspartate Amino Transferase 40 U/L (5-31); Blood Urea Nitrogen 14 mg/dL (9-16); Calcium 9.5 mg/dL (8.4-10.2); Carbon Dioxide 28 mmol/L (22-29); Chloride 105 mmol/L (96-108); Cholesterol 174 mg/dL (<200); Estimated Glomerular Filt Rate > 60; HDL Cholesterol 53 mg/dL (>40); Potassium 3.9 mmol/L (3.3-5.1); Sodium 142 mmol/L (135-145); Total Protein 7.4 g/dL (6.5-8.0); Triglycerides 114 mg/dL (<150)
== END 2025-07-24 12:54 | disposition home or self-care (01) ==
LOC: HO.WFDLDS 12:53
PROVIDERS: PCP Internal Medicine; Visit Provider Internal Medicine
DX: C10.9 Malignant neoplasm of oropharynx, unspecified (principal); Z87.19 Personal history of other diseases of the digestive system; F33.41 Major depressive disorder, recurrent, in partial remission; R73.9 Hyperglycemia, unspecified; E78.00 Pure hypercholesterolemia, unspecified; K63.5 Polyp of colon
CPT/HCPCS: 36415; 80053; 80061; 83036; 84443; 85025

== ENCOUNTER 2025-07-24 12:53 | Outpatient (AMB) | payer BC, MEDICAID, SELFPAY ==
--- NOTE | 2025-07-24 12:58 | A.OFFPC_ITS ---
Vital Signs 07/24/25 13:04 Height 5 ft Weight 100 lb 8 oz BMI 19.6 BP 116/62 Blood Pressure Location Lt brachial Position Sitting Respiration 14 Pulse 76 Pulse Source Pulse Oximeter Pulse Oximetry (%) 97 Oxygen Delivery Method Room Air Intake Visit Reasons: f/up 1/2 hour Intake Note: Follow up Mineral Industry Teacher Required: No Allergies metronidazole (From Flagyl) Allergy (Unknown, Verified 07/24/25 12:59) Unknown moxifloxacin (From Avelox) Allergy (Unknown, Verified 07/24/25 12:59) Unknown penicillin G Allergy (Unknown, Verified 07/24/25 12:59) Unknown Tobacco use date assessed: 07/24/25 Fall risk assessment: 1 Fall in past year Last assessed Fall Risk: 07/24/25 Dental Screening Dental Screen Date: 01/09/25 HPI HPI Comments History of Present Illness Details The patient is a 74 year old female with past medical history of cancer oropharynx, anxiety, insomnia, hypothyroid presenting for follow up BH: Continues to follow [facility]. Is doing well on lamictal, olanzapine, remeron Still on the clorazepate she is motivated to decrease this at some point. Continue psychosocial issues. Seroquel with SE-dry mouth. Off sertraline Hypothyroid: maintained on levothyroxine. Heme/Onc: Follows [facility]. Mammo 01/2025 ROS CONSTITUTIONAL: Denies weight loss, fever and chills. HEENT: Denies changes in vision and hearing. RESPIRATORY: Denies SOB and cough. CV: Denies palpitations and CP GI: Denies abdominal pain, nausea, vomiting and diarrhea. : Denies dysuria and urinary frequency. MSK: Denies new myalgia and joint pain. SKIN: Denies rash and pruritus. NEUROLOGICAL: Denies headache PSYCHIATRIC: Denies si/sa PHYSICAL EXAM: GENERAL: Alert and oriented x 3. NAD EYES: EOMI. Anicteric. HENT: Moist mucous membranes. No scleral icterus. No cervical lymphadenopathy. LUNGS: Clear to auscultation bilaterally. CARDIOVASCULAR: Regular rate and rhythm. No murmur. No JVD. ABDOMEN: Soft, non-tender +bs EXTREMITIES: No edema. Non-tender. SKIN: No rashes or lesions. Warm. NEUROLOGIC: No focal neurological deficits. CN II-XII grossly intact PSYCHIATRIC: Cooperative. Appropriate mood and affect, anxious PFSH Medical History FHx: cholecystectomy Vitamin D deficiency Neck mass Multiple allergies Insomnia Hyperglycemia Hypercholesteremia Hiatal hernia H/O gastroesophageal reflux (GERD) Cervical radiculopathy Anxiety Surgical History History of appendectomy H/O: section Family History Mother Aneurysm HTN (hypertension) Sister Mental disorder Paternal Grandfather Heart attack Social History Alcohol intake: never Patient Tobacco Use Status: Current everyday Tobacco user Years Smoked: 57 e-Cigarette/Vaping Use: Never Used Second Hand Smoke Exposure: No service: No Current occupational status: retired Cognitive needs: No Hearing needs: Yes (difficulty hearing) Vision needs: Yes (glasses) Questionnaire Thrive Questionnaire Date Thrive assessed: 01/09/25 I am a: Patient What is your living situation today?: I have a place to live, but I am worried about losing it in the future Within the past 12 months, did the food you bought not last and you didn't have the money to get more?: Never true Within the past 12 months, did you worry whether your food would run out before you got money to buy more?: Sometimes True Do you have trouble paying for medicines?: Yes Do you have trouble getting transportation to medical appointments?: No Do you have trouble paying your heating and electricity bill?: Yes Do you have trouble taking care of your child, family member or friend?: Yes Do you have trouble with day-to-day activities such as bathing, preparing meals, shopping, managing finances, etc.?: Yes Are you currently unemployed and looking for a job?: Yes Are you interested in more education?: No THRIVE Score: 3 AUDIT C Alcohol Use Questionnaire (AUDIT-C) 1. How often do you have a drink containing alcohol?: Never 3. How often do you have six or more drinks on one occasion?: Never Total Score: 0 JENELLE-7 AMB Questionnaire JENELLE-7 Date JENELLE - 7 assessed: 01/09/25 Source: Developed by DrsRuth Finley, Yina Harden, Ja Vizcarra and colleagues, with an educational serena from [employer]. Physical exam (Primary Care) Vital Signs: Last Vital Signs Pulse 76 07/24/25 13:04 Resp 14 07/24/25 13:04 BP 116/62 07/24/25 13:04 Pulse Ox 97 07/24/25 13:04 Oxygen Delivery Method Room Air 07/24/25 13:04 BMI result Body Mass Index 19.6 Tobacco/Smoking Status: Tobacco use Status Tobacco use date assessed 07/24/25 07/24/25 13:03 Patient Tobacco Use Status Current everyday Tobacco 07/24/25 13:03 e-Cigarette/Vaping Use Never Used 07/24/25 13:03 Thrive Assessment: Date of Thrive Assessment Date Thrive assessed 01/09/25 07/24/25 13:03 Coding Level of Care Code Est Pt Level 4 (28565) Complex visit Add On G2211 Diagnoses Mood disorder F39 Polyp of colon, unspecified part of colon, unspecified type K63.5 Colon location: unspecified part of colon Colon polyp type: unspecified Oropharyngeal cancer C10.9 Hyperglycemia R73.9 Assessment & Plan Assessment & Plan (1) Mood disorder: Code(s): F39 - Unspecified mood [affective] disorder Category: Medical (2) Colon polyp: Code(s): K63.5 - Polyp of colon Category: Medical Qualifiers: Colon location: unspecified part of colon Colon polyp type: unspecified Qualified Code(s): K63.5 - Polyp of colon (3) Oropharyngeal cancer: Code(s): C10.9 - Malignant neoplasm of oropharynx, unspecified Category: Medical (4) Hyperglycemia: Code(s): R73.9 - Hyperglycemia, unspecified Category: Medical Plan 74 year old female presenting for follow up Oropharyngeal cancer-continues [facility] follow up Hypothyroid-stable on medications Mood disorder, anxiety-doing better on current medication regimen & with psychiatry Orders: Orders Comprehensive Met. Panel Today C10.9 - Malignant neoplasm of oropharynx, unspecified, E78.00 - Pure hypercholesterolemia, unspecified, F33.41 - Major depressive disorder, recurrent, in partial remission, R73.9 - Hyperglycemia, unspecified, Z87.19 - Personal history of other diseases of the digestive system Lipid Panel Today C10.9 - Malignant neoplasm of oropharynx, unspecified, E78.00 - Pure hypercholesterolemia, unspecified, F33.41 - Major depressive disorder, recurrent, in partial remission, R73.9 - Hyperglycemia, unspecified, Z87.19 - Personal history of other diseases of the digestive system Hemoglobin A1c Today C10.9 - Malignant neoplasm of oropharynx, unspecified, E78.00 - Pure hypercholesterolemia, unspecified, F33.41 - Major depressive disorder, recurrent, in partial remission, R73.9 - Hyperglycemia, unspecified, Z87.19 - Personal history of other diseases of the digestive system Complete Blood Count Auto Diff Today C10.9 - Malignant neoplasm of oropharynx, unspecified, E78.00 - Pure hypercholesterolemia, unspecified, F33.41 - Major depressive disorder, recurrent, in partial remission, R73.9 - Hyperglycemia, unspecified, Z87.19 - Personal history of other diseases of the digestive system TSH reflex Free T4 Today C10.9 - Malignant neoplasm of oropharynx, unspecified, E78.00 - Pure hypercholesterolemia, unspecified, F33.41 - Major depressive disorder, recurrent, in partial remission, R73.9 - Hyperglycemia, unspecified, Z87.19 - Personal history of other diseases of the digestive system Medications: New ybxmmurs-yicrkhvft-WP 3.5-10,000-1 mg/mL-unit/mL-% 4 drps otic (ear) left Q8H 10 mL 0RF 10 days
[2025-07-24 13:04] VITALS: BP 116/62; PULSE 76; RESP 14; O2SAT 97; BMI 19.6
--- OUTSIDE RECORDS SUMMARY | 2025-07-24 14:46 | XMS_ITS | Encounter Summary ---
Author Organization [facility] Address [address] [place] [address] Phone Care Team Providers Care Space Officer Name Role Phone Catalina Gastelum MD Primary Care Provider + [phone] Quin Barragan LEMON GROWER Unavailable [phone] Jaylin Ribeiro LEMON GROWER Unavailable [phone] Sabine Harrison RN Unavailable [email or web address] Ivon Vitale RN Unavailable Oralia [email or web address] Zara Emerson PA-C Unavailable + Jada Mayfield MD, MPH Unavailable + [phone] Encounter Details Date Type Department Care Team (Late st Contact Info) Description 12/07/2023 Procedure Pass Trudy Lank Imaging Department, [facility] [facility] [place], [place] [address] [facility], Floor [address] [place] [address] Social History Tobacco Use Types Packs/Day Years [...] Care Team (Late st Contact Info) Description 10/04/2025 9:40 AM EST Blood Draw Laboratory Services, [address] [place] [address] Reid Muhammad MD [address] [place] [address] [email or web address] 10/04/2025 10:30 AM EST [facility], [address], [address] [place] [address] Derrick Munoz MD [address] [place] [address] [email or web address] 03/21/2026 1:00 PM EDT Office Visit [facility], [address], [address] [place] [address] Andres Banks MD, PhD [address] [place] [phone] documented as of this encounter Visit Diagnoses Not on filedocumented in this encounter Care Teams Space Officer Relationship Specialty Start Date End Date Catalina Gastelum MD PCP - General Internal Medicine 04/09/22 Quin Barragan [address] [address] [email or web address] Process Description Writer 04/28/22 Jaylin Ribeiro, [address] [address] [email or web address] Process Description Writer Oncology 05/12/22 Sabine Harrison, RN [address] [place] [address] JOSÉ [email or web address] Primary Infusion Nurse 05/19/22 Ivon Cameron, RN [address] [place] [address] [email or web address] Associate Infusion Nurse 05/19/22 Zara Emerson PA-C [address] [place] [address] [email or web address] Physician Etcher Enameling 06/15/23 Jada Mayfield MD, MPH [address] [place] [address] [email or web address] Radiation Oncology 06/15/23 documented as of this encounter Additional Source Comments The information contained in this document represents components of the legal health record. It is not the complete legal health record.[facility]
--- OUTSIDE RECORDS SUMMARY | 2025-07-24 14:46 | XMS_ITS | Clinical Summary ---
Author Organization [address] [facility] Address [address] [place] [address] Phone Care Team Providers Care Plumbers And Top Helpers Name Role Phone Catalina Paris MD Primary Care Provider [phone] Social History Tobacco Use Types Packs/Day Years [...] Screening 09/21/2023 Depression Screening 08/23/2024 COVID-19 Vaccine (2024-2 6 season) 2025 Influenza Vaccine (#1) 2025 RSV [...] age to complete this topic Insurance [facility] [address] BL[place]IC[place] Care Teams Plumbers And Top Helpers Relationship Specialty Start Date End Date Catalina Paris MD [address] [place] [address] [address] [place] [address] PCP - General 08/07/22
--- OUTSIDE RECORDS SUMMARY | 2025-07-24 14:46 | XMS_ITS | Encounter Summary ---
Author Organization [facility] Address [address] [facility] [address] [place] [address] Phone Care Team Providers Care Digital Photographer Name Role Phone Catalina Gastelum MD Primary Care Provider + [phone] Quin Barragan BAND SAW OPERATOR CAKE CUTTING Unavailable +[phone] Jaylin Ribeiro BAND SAW OPERATOR CAKE CUTTING Unavailable +[phone] Sabine Harrison RN Unavailable MICHELLE [email or web address]. Ivon Vitale RN Unavailable Oralia [email or web address] Zara Emerson PA-C Unavailable + Jada Mayfield MD, MPH Unavailable + [phone] Encounter Details Date Type Department Care Team (Late st Contact Info) Description 06/03/2022 Prep for Surgery [facility]'s [address] [address] Nery Campbell PA-C [address] [place] [address] [email or web address] Social History Tobacco Use [...] 9:40 AM EST [facility], [address], [address] [place] [address] Reid Muhammad MD [address] [place] [address] [email or web address] 10/04/2025 10:30 AM EST [facility], [address], [address] [place] [address] Derrick Munoz MD [address] [place] [address] [email or web address]@[facility] 03/21/2026 1:00 PM EDT Office [facility], [address], [address] [place] [address] Andres Banks MD, PhD [address] [place] [address] documented as of this encounter Visit Diagnoses Not on filedocumented in this encounter Care Teams Digital Photographer Relationship Specialty Start Date End Date Catalina Gastelum MD PCP - General Internal Medicine 04/09/22 Quin Barragan, [address] [address] [email or web address] Sheet Metal Duct Installer 04/28/22 Jaylin Ribeiro, BAND SAW OPERATOR CAKE CUTTING [address] [place] [address] [email or web address]@[facility] Sheet Metal Duct Installer Oncology 05/12/22 Sabine Harrison, RN [address] [place] [address] JOSÉ MIGUEL@[email or web address] Primary Infusion Nurse 05/19/22 Ivon Cameron RN [address] [place] [address] [email or web address] Associate Infusion Nurse 05/19/22 Zara Emerson PA-C [address] [place] [address] [email or web address] Physician Technical Communicator 06/15/23 Jada Mayfield MD, MPH [address] [place] [address] [email or web address] Radiation Oncology 06/15/23 documented as of this encounter Additional Source Comments The information contained in this document represents components of the legal health record. It is not the complete legal health record.[facility]
--- OUTSIDE RECORDS SUMMARY | 2025-07-24 14:46 | XMS_ITS | Encounter Summary ---
Author Organization [facility] Address [address] [facility] [address] [place] [address] Phone Care Team Providers Care Lead Electrical Controls Engineer Name Role Phone Catalina Gastelum MD Primary Care Provider + [phone] Quin Barragan CHAMBER WALKER Unavailable +[phone] Jaylin Ribeiro CHAMBER WALKER Unavailable +[phone] Sabine Harrison RN Unavailable MICHELLE [email or web address]. Ivon Vitale RN Unavailable Oralia [email or web address] [facility] Zara Emerson PA-C Unavailable + Jada Mayfield MD, MPH Unavailable + [phone] Encounter Details Date Type Department Care Team (Late st Contact Info) Description 06/03/2022 Prep for Surgery [facility]'s [address] [address] Nery Campbell PA-C [address] [place] [address] [email or web address] Social History Tobacco Use Types [...] Campbell PA-C - 06/03/2022 5:19 PM EDT [facility] Metabolic Support Service Phone Screen NAME: [...] adenopathy. Currently receiving weekly cisplatin and XRT. [facility] has been consulted for [...] 125 mcg by mouth every morning. ??? yxfefzmir-kazxwxcpktxjivw-mtlh-mag-simethicone (MAGIC MOUTHWASH-BLM) [id number] mg/30mL suspension Swish and spit 10 mL [...] indicated. Nery Campbell PA-C Metabolic Support Service [facility] Office [phone] Pager [phone] documented in this encounter Plan of Treatment Upcoming Encounters Date Type Department Care Team (Late st Contact Info) Description 10/04/2025 9:40 AM EST Blood Draw Laboratory Services, [address], [address] [place] [address] Reid Muhammad MD [address] [place] [address] [email or web address] 10/04/2025 10:30 AM EST Office [facility], [address], [place] [address] Derrick Munoz MD [address] [place] [address] Olegario@[email or web address] 03/21/2026 1:00 PM EDT Office Visit [facility], [address], [address] [place] [address] Andres Banks MD, PhD [address] [place], [place] [phone] [email or web address] documented as of this encounter Visit Diagnoses Not on filedocumented in this encounter Care Teams Lead Electrical Controls Engineer Relationship Specialty Start Date End Date Catalina Gastelum MD PCP - General Internal Medicine 04/09/22 Quin Barragan, [address] [address] Shira@[email or web address] Disk Operator 04/28/22 Jaylin Ribeiro, [address] [address] [email or web address] Disk Operator Oncology 05/12/22 Sabine Harrison, RN [address] [place] [address] JOSÉ MIGUEL@[email or web address] Primary Infusion Nurse 05/19/22 Ivon Cameron, RN [address] [place] [address] [email or web address] Associate Infusion Nurse 05/19/22 Zara Emerson PA-C [address] [place] [address] [place] [address] [email or web address] Physician Commissary Production Supervisor 06/15/23 Jada Mayfield MD, MPH [address] [place] [address] [email or web address] Radiation Oncology 06/15/23 documented as of this encounter Additional Source Comments The information contained in this document represents components of the legal health record. It is not the complete legal health record.[facility]
--- OUTSIDE RECORDS SUMMARY | 2025-07-24 14:46 | XMS_ITS | Encounter Summary ---
Author Organization [facility] Address [address] [facility] [address] [place] [address] Phone Care Team Providers Care Stationary Engineer Supervisor Name Role Phone Catalina Gastelum MD Primary Care Provider + [phone] Quin Barragan MONITORING ENGINEER Unavailable +[phone] Jaylin Ribeiro MONITORING ENGINEER Unavailable [phone] Sabine Harrison RN Unavailable MICHELLE [email or web address]. Ivon Vitale RN Unavailable Oralia [email or web address]. [facility] Zara Emerson PA-C Unavailable + Jada Mayfield MD, MPH Unavailable + [phone] Encounter Details Date Type Department Care Team (Late st Contact Info) Description 06/04/[address] [facility] Periop [address] [place] [address] Social History Tobacco Use Types Packs/Day Years [...] 9:40 AM EST Blood Draw Laboratory Services, [address], [address] [place] [address] Reid Muhammad MD [address] [place] [address] [email or web address] 10/04/2025 10:30 AM EST Office Visit [facility], [address], [address] [place] [address] Derrick Munoz MD [address] [place] [address] [email or web address]@[facility] 03/21/2026 1:00 PM EDT Office Visit [facility], [address], [address] [place] [address] Andres Banks MD, PhD [address] [place] [address] [email or web address] documented as of this encounter Visit Diagnoses Not on filedocumented in this encounter Care Teams Stationary Engineer Supervisor Relationship Specialty Start Date End Date Catalina Gastelum MD PCP - General Internal Medicine 04/09/22 Quin Barragan LICSW [address] [place] [address] [email or web address] Class B Truck Driver 04/28/22 Jaylin Ribeiro, [address] [address] [email or web address]@[facility] Class B Truck Driver Oncology 05/12/22 Sabine Harrison, RN [address] [place] [address] JOSÉ [email or web address]@[email or web address] Primary Infusion Nurse 05/19/22 Ivon Cameron, RN [address] [place] [address] [email or web address] Associate Infusion Nurse 05/19/22 Zara Emerson PA-C [address] [place] [address] [email or web address] Physician Steam Turbine Operator 06/15/23 Jada Mayfield MD, MPH [address] [place] [address] [email or web address] Radiation Oncology 06/15/23 documented as of this encounter Additional Source Comments The information contained in this document represents components of the legal health record. It is not the complete legal health record.[facility]
--- OUTSIDE RECORDS SUMMARY | 2025-07-24 14:46 | XMS_ITS | Encounter Summary ---
Author Organization [facility] Address [address] [facility] [address] [place] [address] Phone Care Team Providers Care Glass Bead Maker Name Role Phone Catalina Gastelum MD Primary Care Provider + [phone] Quin Barragan VEGETABLE GRADER Unavailable +[phone] Jaylin Ribeiro VEGETABLE GRADER Unavailable [phone] Sabine Harrison RN Unavailable [email or web address] [email or web address]. Ivon Vitale RN Unavailable Oralia [email or web address]. [facility] Zara Emerson PA-C Unavailable + Jada Mayfield MD, MPH Unavailable +- [phone] Encounter Details Date Type Department Care Team (Late st Contact Info) Description 09/29/2022 Procedure Pass [facility] Imaging Department, [facility] [place], PET/CT [address] [place] [address] Social History Tobacco Use Types Packs/Day Years [...] 9:40 AM EST Blood Draw Laboratory Services, [address], [address] [place] [address] Reid Muhammad MD [address] [place] [address] [email or web address] 10/04/2025 10:30 AM EST Office Visit [facility], [address], [address] [place] [address] Derrick Munoz MD [address] [place] [address] [email or web address] 03/21/2026 1:00 PM EDT Office Visit [facility], [address], [address] [place] [address] Andres Banks MD, PhD [address] [place] [address] [email or web address] documented as of this encounter Visit Diagnoses Not on filedocumented in this encounter Care Teams Glass Bead Maker Relationship Specialty Start Date End Date Catalina Gastelum MD PCP - General Internal Medicine 04/09/22 Quin Barragan [address] [address] [email or web address] Security Compliance Engineer 04/28/22 Jaylin Ribeiro, [address] [address] Rhiannon@[facility] Security Compliance Engineer Oncology 05/12/22 Sabine Harrison, ALY [address] [place] [address] JOSÉ [email or web address] Primary Infusion Nurse 05/19/22 Ivon Cameron RN [address] [place] [address] [email or web address] Associate Infusion Nurse 05/19/22 Zara Emerson PA-C [address] [place] [address] [email or web address] Physician Plastic Printer 06/15/23 Jada Mayfield MD, MPH [address] [place] [address] [email or web address] Radiation Oncology 06/15/23 documented as of this encounter Additional Source Comments The information contained in this document represents components of the legal health record. It is not the complete legal health record.[facility]
--- OUTSIDE RECORDS SUMMARY | 2025-07-24 14:46 | XMS_ITS ---
Author Organization [facility] Address [address] [facility] [address] [place] [address] Phone Care Team Providers Care Supervisor Nut Processing Name Role Phone Catalina Gastelum MD Primary Care Provider + [phone] Quin Barragan BRAND SPECIALIST Unavailable +[phone] Jaylin Ribeiro BRAND SPECIALIST Unavailable [phone] Sabine Harrison RN Unavailable MICHELLE [email or web address]. Ivon Vitale RN Unavailable Oralia [email or web address]. [facility] Zara Emerson PA-C Unavailable + Jada Mayfield MD, MPH Unavailable +- [phone] Active Problems Problem Noted Date Diagnosed Date [...] if unable to do this by mouth. SLASHER OPERATOR Support: As needed Emotional: Coping well Assessment [...] if unable to do this by mouth. SLASHER OPERATOR Support: As needed Emotional: Coping well Assessment [...] if unable to do this by mouth. SLASHER OPERATOR Support: As needed Emotional: Coping well Assessment [...] if unable to do this by mouth. SLASHER OPERATOR Support: As needed Emotional: Coping well Assessment [...] if unable to do this by mouth. SLASHER OPERATOR Support: As needed Emotional: Coping well Assessment & Plan (06/13/2022 9:19 PM EDT): Treatment: Weekly Cisplatin + XRT OK to continue treatment today: C1 D22 Pain Management: Acetaminophen Nausea Management: Metoclopramide, Ondansetron, Dexamethasone and Lorazepam Bowel Regimen: Colace and Senna Oral Care / Dental Hygiene: Oral rinses as indicated Nutritional Support: Tolerating full oral diet. Weight is down. SLASHER OPERATOR Support: As needed Emotional: Coping well Assessment [...] Tolerating full oral diet. Weight is down. SLASHER OPERATOR Support: As needed Emotional: Coping well Assessment [...] Tolerating full oral diet. Weight is down. SLASHER OPERATOR Support: As needed Emotional: Coping well Current [...]
--- OUTSIDE RECORDS SUMMARY | 2025-07-24 14:46 | XMS_ITS | Encounter Summary ---
Author Organization [facility] Address [address] [facility] [address] [place] [address] Phone Care Team Providers Care Personal Attendant Name Role Phone Catalina Gastelum MD Primary Care Provider + [phone] Quin Barragan CERTIFIED [facility] [employer] IN HE[facility] Unavailable +[phone] Jaylin Ribeiro CERTIFIED [employer] [employer] [facility] Unavailable [phone] Sabine Harrison RN Unavailable MICHELLE [email or web address]. Ivon Vitale RN Unavailable Oralia [email or web address] [facility] Zara Emerson PA-C Unavailable + Jada Mayfield MD, MPH Unavailable + [phone] Encounter Details Date Type Department Care Team (Late st Contact Info) Description 11/06/2022 Procedure Pass Trudy Lank Imaging Department, [facility] [place], [place] [address] [facility], [address] [place] [address] Social History Tobacco Use Types Packs/Day Years [...] 9:40 AM EST Blood Draw Laboratory Services, [address], [address] [place] [address] Reid Muhammad MD [address] [place] [address] [email or web address] 10/04/2025 10:30 AM EST Office Visit [facility], [address], [address] [place] [address] Derrick Munoz MD [address] [place] [address] Olegario@[email or web address] 03/21/2026 1:00 PM EDT Office Visit [facility], [address], [address] [place] [address] Andres Banks MD, PhD [address] [place] [address] [email or web address] documented as of this encounter Visit Diagnoses Not on filedocumented in this encounter Care Teams Personal Attendant Relationship Specialty Start Date End Date Catalina Gastelum MD PCP - General Internal Medicine 04/09/22 Quin Barragan LICSW [address] [place] [address] Shira@[facility] Ward Nurse 04/28/22 Jaylin Ribeiro, CERTIFIED [facility] [facility] IN HEALTH [facility]ARE [address] [place] [address] [email or web address]@[email or web address] Ward Nurse Oncology 05/12/22 Sabine Harrison, RN [address] [place] [address] JOSÉ MIGUEL@[facility] Primary Infusion Nurse 05/19/22 Ivon Cameron RN [address] [place] [address] Marquez@[email or web address] Associate Infusion Nurse 05/19/22 Zara Emerson PA-C [address] [place] [address] and Women's [place], [place] [email or web address] Physician Bonding And Composite Fabricator 06/15/23 Jada Mayfield MD, MPH [address] [place] [address] [email or web address] Radiation Oncology 06/15/23 documented as of this encounter Additional Source Comments The information contained in this document represents components of the legal health record. It is not the complete legal health record.[facility]
--- OUTSIDE RECORDS SUMMARY | 2025-07-24 14:46 | XMS_ITS | Encounter Summary ---
Author Organization [facility] Address [address] [facility] [address] [place] [address] Phone Care Team Providers Care Certified Mortician Name Role Phone Catalina Gastelum MD Primary Care Provider + [phone] Quin Barragan FBI INVESTIGATOR Unavailable +[phone] Jaylin Ribeiro FBI INVESTIGATOR Unavailable [phone] Sabine Harrison RN Unavailable MICHELLE [email or web address]. Ivon Vitale RN Unavailable Oralia [email or web address] Zara Emerson PA-C Unavailable + Jada Mayfield MD, MPH Unavailable + [phone] Encounter Details Date Type Department Care Team (Late st Contact Info) Description 12/07/2023 Procedure Pass Trudy Lank Imaging Department, [facility], [facility] [address] [facility], [address] [place] [address] Social History Tobacco Use Types Packs/Day Years [...] 9:40 AM EST Blood Draw Laboratory Services, [address], [address] [place] [address] Reid Muhammad MD [address] [place] [address] [email or web address] 10/04/2025 10:30 AM EST Office [facility], [address], [address] [place] [address] Derrick Munoz MD [address] [place] [address] Olegario@[facility] 03/21/2026 1:00 PM EDT Office Visit [facility], [address], [address] [place] [address] Andres Banks MD, PhD [address] [place] [address] documented as of this encounter Visit Diagnoses Not on filedocumented in this encounter Care Teams Certified Mortician Relationship Specialty Start Date End Date Catalina Gastelum MD PCP - General Internal Medicine 04/09/22 Quin Barragan [address] [address] Shira@[facility] Glass Fitter 04/28/22 Jaylin Ribeiro, [address] [address] Rhiannon@[facility] Glass Fitter Oncology 05/12/22 Sabine Harrison, RN [address] [place] [address] JOSÉ MIGUEL@[facility] Primary Infusion Nurse 05/19/22 Ivon Cameron, RN [address] [place] [address] Marquez@[email or web address] Associate Infusion Nurse 05/19/22 Zara Emerson PA-C [address] [place] [address] [email or web address] Physician Sample Finisher 06/15/23 Jada Mayfield MD, MPH [address] [place] [address] [email or web address] Radiation Oncology 06/15/23 documented as of this encounter Additional Source Comments The information contained in this document represents components of the legal health record. It is not the complete legal health record.[facility]
--- OUTSIDE RECORDS SUMMARY | 2025-07-24 14:46 | XMS_ITS | Clinical Summary ---
Author Organization [facility] Address [address] [facility] [address] [place] [address] Phone Care Team Providers Care Social Psychologist Name Role Phone Catalina Gastelum MD Primary Care Provider + [phone] Quin Barragan ENGINEER PROCESS Unavailable +[phone] Jaylin Ribeiro ENGINEER PROCESS Unavailable [phone] Sabine Harrison RN Unavailable [email or web address]. Ivon Vitale RN Unavailable Oralia [email or web address] [facility] Zara Emerson PA-C Unavailable + Jada Mayfield MD, MPH Unavailable +- [phone] Allergies Active Allergy Reactions Criticality Noted Date [...] Active diphenhydramine -lidocaine-alum -mag-simethicon e (MAGIC MOUTHWASH-BLM) [id number] mg/30mL suspension Swish and spit 10 mL [...] if unable to do this by mouth. READING ASSISTANT Support: As needed Emotional: Coping well Assessment [...] if unable to do this by mouth. READING ASSISTANT Support: As needed Emotional: Coping well Assessment [...] if unable to do this by mouth. READING ASSISTANT Support: As needed Emotional: Coping well Assessment [...] if unable to do this by mouth. READING ASSISTANT Support: As needed Emotional: Coping well Assessment [...] if unable to do this by mouth. READING ASSISTANT Support: As needed Emotional: Coping well Assessment & Plan (06/13/2022 9:19 PM EDT): Treatment: Weekly Cisplatin + XRT OK to continue treatment today: C1 D22 Pain Management: Acetaminophen Nausea Management: Metoclopramide, Ondansetron, Dexamethasone and Lorazepam Bowel Regimen: Colace and Senna Oral Care / Dental Hygiene: Oral rinses as indicated Nutritional Support: Tolerating full oral diet. Weight is down. READING ASSISTANT Support: As needed Emotional: Coping well Assessment [...] Tolerating full oral diet. Weight is down. READING ASSISTANT Support: As needed Emotional: Coping well Assessment [...] Tolerating full oral diet. Weight is down. READING ASSISTANT Support: As needed Emotional: Coping well Immunizations Immunization Administration Dates Next Due Influenza [...] 9:40 AM EST Blood Draw Laboratory Services, [address], 2nd [place] [address] Reid Muhammad MD [address] [place] [address] [email or web address] 10/04/2025 10:30 AM EST Office [facility], [address], 11[address] Floor [place] [phone] Derrick Munoz MD [address] [place] [address] [email or web address] 03/21/2026 1:00 PM EDT Office Visit [facility], [facility] [place] [address] [place] [address], 11th [place] [address] Andres Banks MD, PhD [address] [place] [address] Health Maintenance Due Date Last Done Comments [...] VACCINES (50+ years) (2 of 2 - PPSV23, PCV20, or PCV21) 10/20/2019 08/25/2019 TSH LEVEL 10/29/2023 10/28/2022, 07/26/2022 [...] Procedure Name Priority Date/Time Associated Diagnosis Comments THYROID STIMULATING HORMONE (TSH) Routine 10/28/2022 9:40 AM EST 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 from Last 3 Months or Most Recently Relevant to Health Maintenance Results * (ABNORMAL) TSH (10/28/2022 9:40 AM EST) TSH 9.71(H) 0.27 - 4.20 uIU/mL [facility] LIC# [id number] Blood 10/28/2022 9:40 AM EST 10/28/2022 9:59 AM EST us Derrick Munoz MD LAB BLOOD BKR ORDERABLES Veronica anaya Result [facility] LIC# [id number] [address] [place] [address] from Last 3 Months or Most Recently Relevant to Health Maintenance Insurance [address] [place], [place] [address]B [place] BLUE [facility]AC[facility] MEDIC[facility] O [facility] RE[facility] MEDIC[facility] HMO BLUE REPLACEMENT [facility] QMB Member Subscriber Plan / Payer (Ef fective 2024-) Name:Anu Alexander Relation to Subscriber:Self Name:Anu Alexander Payer ID:[id number] Group ID:Not on file Type:Medicaid Address: [address] [id number] [place] [facility] Member Subscriber Plan / Payer (Ef fective 2024-Present) Name:Anu Alexander Relation to Subscriber:Self Name:Anu Alexander Payer ID:[id number] Group ID:Not on file Type:Medicaid Address: [address] [id number] [place] [facility] [place] BLUE REPLACEMENT MEDICARE CLINICAL TRIAL RESTRICTED USE Advance Directives For more information, please contact: [phone] (9AM - 5PM [facility], Wednesday-Wednesday) Documents on File Type Date Recorded Patient Dialysis Tech Expl anation Healthcare Proxy 07/29/2022 4:34 PM * Full Code (Latest Code Status on File) Date Activated Date Inactivated Comments 07/26/2022 10:30 AM Question Answer Comments Code Status Confirmed With: Patient Care Teams Social Psychologist Relationship Specialty Start Date End Date Catalina Gastelum MD PCP - General Internal Medicine 04/09/22 Quin Barragan [address] [address] [email or web address] Fur Designer 04/28/[address] Jaylin Ribeiro [address] [address] [email or web address] Fur Designer Oncology 05/12/22 Sabine Harrison, ALY [address] [place] [address] JOSÉ [email or web address]@[email or web address] Primary Infusion Nurse 05/19/22 Ivon Cameron, ALY [address] [place] [address] [email or web address] Associate Infusion Nurse 05/19/22 Zara Emerson PA-C [address] [place] [address] [place] [address] [email or web address] Physician Train Operations Manager 06/15/23 Jada Mayfield MD, MPH [address] [place] [address] [email or web address] Radiation Oncology 06/15/23 Additional Source Comments The information contained in this document represents components of the legal health record. It is not the complete legal health record.[facility]
--- OUTSIDE RECORDS SUMMARY | 2025-07-24 14:46 | XMS_ITS | Encounter Summary ---
Author Organization [facility] Address [address] [facility] [address] [place] [address] Phone Care Team Providers Care Social Insurance Adviser Name Role Phone Catalina Gastelum MD Primary Care Provider + [phone] Quin Barragan CASINO OPERATIONS SUPERVISOR Unavailable +[phone] Jaylin Ribeiro CASINO OPERATIONS SUPERVISOR Unavailable [phone] Sabine Harrison RN Unavailable [email or web address] Ivon Vitale RN Unavailable Oralia [email or web address] Zara Emerson PA-C Unavailable + Jada Mayfield MD, MPH Unavailable + [phone] Encounter Details Date Type Department Care Team (Late st Contact Info) Description 10/01/2022 Telephone [facility], [facility] [place] [address] [place] [address], 11th [place] [address] Evan Vigil, RN [address] [place] [address] [email or web address] Social History Tobacco Use Types Packs/Day [...] 9:40 AM EST Blood Draw Laboratory Services, [address], 2nd [place] [address] Reid Muhammad MD [address] [place] [address] [email or web address] 10/04/2025 10:30 AM EST Office Visit [facility], [address], [address] [place] [address] Derrick Munoz MD [address] [place] [address] [email or web address] 03/21/2026 1:00 PM EDT Office Visit [facility], [address], [address] [place] [address] Andres Banks MD, PhD [address] [place] [address] documented as of this encounter Visit Diagnoses Not on filedocumented in this encounter Care Teams Social Insurance Adviser Relationship Specialty Start Date End Date Catalina Gastelum MD PCP - General Internal Medicine 04/09/22 Quin Barragan, [address] [address] [email or web address] Lead Android Developer 04/28/22 Jaylin Ribeiro, [facility] [address] [place] [address] [email or web address] Lead Android Developer Oncology 05/12/22 Sabine Harrison, RN [address] [place] [address] JOSÉ [email or web address] Primary Infusion Nurse 05/19/22 Ivon Cameron, ALY [address] [place] [address] [email or web address] Associate Infusion Nurse 05/19/22 Zara Emerson PA-C [address] [place] [address] [place] [address] [email or web address] Physician Boot Maker 06/15/23 Jada Mayfield MD, MPH [address] [place] [address] [email or web address] Radiation Oncology 06/15/23 documented as of this encounter Additional Source Comments The information contained in this document represents components of the legal health record. It is not the complete legal health record.[facility]
--- OUTSIDE RECORDS SUMMARY | 2025-07-24 14:46 | XMS_ITS | Encounter Summary ---
Author Organization [facility] Address [address] [facility] [address] [place] [address] Phone Care Team Providers Care Glue Plant Operator Name Role Phone Catalina Gastelum MD Primary Care Provider + [phone] Quin Barragan ACTUARIAL DIRECTOR Unavailable [phone] Jaylin Ribeiro ACTUARIAL DIRECTOR Unavailable [phone] Sabine Harrison RN Unavailable MICHELLE [email or web address] Ivon Vitale RN Unavailable Oralia [email or web address] Zara Emerson PA-C Unavailable + Jada Mayfield MD, MPH Unavailable + [phone] Encounter Details Date Type Department Care Team (Late st Contact Info) Description 04/20/[address] [facility] Periop [address] [place] [address] Social History Tobacco Use Types Packs/Day Years [...] 9:40 AM EST Blood Draw Laboratory Services, [address], [address]nd [place] [address] Reid Muhammad MD [address] [place] [address] [email or web address] 10/04/2025 10:30 AM EST Office Visit [facility], [address], [address] [place] [address] Derrick Munoz MD [address] [place] [address] [email or web address] 03/21/2026 1:00 PM EDT Office Visit [facility], [address], [address] [place] [address] Andres Banks MD, PhD [address] [place] [address] [email or web address] documented as of this encounter Visit Diagnoses Not on filedocumented in this encounter Care Teams Glue Plant Operator Relationship Specialty Start Date End Date Catalina Gastelum MD PCP - General Internal Medicine 04/09/22 Quin Barragan LICSW [address] [place] [address] [email or web address] Wood Planer 04/28/22 Jaylin Ribeiro, [address] [address] Rhiannon@[email or web address] Wood Planer Oncology 05/12/22 Sabine Harrison, RN [address] [place] [address] JOSÉ [email or web address]@[email or web address] Primary Infusion Nurse 05/19/22 Ivon Cameron, RN [address] [place] [address] [email or web address] Associate Infusion Nurse 05/19/22 Zara Emerson PA-C [address] [place] [address] [email or web address] Physician Clark Driver 06/15/23 Jada Mayfield MD, MPH [address] [place] [address] [email or web address] Radiation Oncology 06/15/23 documented as of this encounter Additional Source Comments The information contained in this document represents components of the legal health record. It is not the complete legal health record.[facility]
--- OUTSIDE RECORDS SUMMARY | 2025-07-24 14:46 | XMS_ITS | Encounter Summary ---
Author Organization [facility] Address [address] [facility] [address] [place] [address] Phone Care Team Providers Care Interpreter For The Deaf Name Role Phone Catalina Gastelum MD Primary Care Provider + [phone] Quin Barragan SQUAD BOSS Unavailable +[phone] Jaylin Ribeiro SQUAD BOSS Unavailable [phone] Sabine Harrison RN Unavailable [email or web address] [email or web address] Ivon Vitale RN Unavailable Oralia [email or web address] Zara Emerson PA-C Unavailable + Jada Mayfield MD, MPH Unavailable + [phone] Encounter Details Date Type Department Care Team (Late st Contact Info) Description 07/23/2022 Procedure Pass [facility] [address] [place] [address] Social History Tobacco Use Types Packs/Day Years [...] 07/23/2022 10:28 PM Reid Espinoza, ALY * [place] Suicide Severity Rating Scale (Screener/Recent Self-Report) Question [...] 9:40 AM EST Blood Draw Laboratory Services, [address], [address]nd [place] [address] Reid Muhammad MD [address] [place] [address] [email or web address] 10/04/2025 10:30 AM EST Office Visit [facility], [address], [place] [address] Derrick Munoz MD [address] [place] [address] Olegario@[facility] 03/21/2026 1:00 PM EDT Office Visit [facility], [address], [place] [address] Andres Banks MD, PhD [address] [place] [address] [email or web address] documented as of this encounter Visit Diagnoses Not on filedocumented in this encounter Care Teams Interpreter For The Deaf Relationship Specialty Start Date End Date Catalina Gastelum MD PCP - General Internal Medicine 04/09/22 Quin Barragan, [address] [address] Shira@[email or web address] Ram Car Operator 04/28/22 Jaylin Ribeiro, [address] [address] Rhiannon@[email or web address] Ram Car Operator Oncology 05/12/22 Sabine Harrison, RN [address] [place] [address] JOSÉ [email or web address] Primary Infusion Nurse 05/19/22 Ivon Cameron RN [address] [place] [address] [email or web address] Associate Infusion Nurse 05/19/22 Zara Emerson PA-C [address] [place] [address] [email or web address] Physician Hospital Administrative Assistant 06/15/23 Jada Mayfield MD, MPH [address] [place] [address] [email or web address] Radiation Oncology 06/15/23 documented as of this encounter Additional Source Comments The information contained in this document represents components of the legal health record. It is not the complete legal health record.[facility]
--- OUTSIDE RECORDS SUMMARY | 2025-07-24 14:46 | XMS_ITS | Encounter Summary ---
Author Organization [facility] Address [address] [facility] [address] [place] [address] Phone Care Team Providers Care Chief Inspector Name Role Phone Catalina Gastelum MD Primary Care Provider + [phone] Quin Barragan BOX TURNER Unavailable [phone] Jaylin Ribeiro BOX TURNER Unavailable [phone] Sabine Harrison RN Unavailable [email or web address] Ivon Vitale RN Unavailable Oralia [email or web address] Zara Emerson PA-C Unavailable + Jada Mayfield MD, MPH Unavailable + [phone] Encounter Details Date Type Department Care Team (Late st Contact Info) Description 11/06/2022 Procedure Pass [facility], [facility] [place] [address] [facility], [address] [place] [address] Social History Tobacco Use Types Packs/Day Years [...] 9:40 AM EST Blood Draw Laboratory Services, [address], [address] [place] [address] Reid Muhammad MD [address] [place] [address] [email or web address] 10/04/2025 10:30 AM EST Office Visit [facility], [address], [address] [place] [address] Derrick Munoz MD [address] [place] [address] [email or web address]@[email or web address] 03/21/2026 1:00 PM EDT Office Visit [facility], [address], [address] [place] [address] Andres Banks MD, PhD [address] [place] [address] [email or web address] documented as of this encounter Visit Diagnoses Not on filedocumented in this encounter Care Teams Chief Inspector Relationship Specialty Start Date End Date Catalina Gastelum MD PCP - General Internal Medicine 04/09/22 Quin Barragan LICSW [address] [place] [address] [email or web address] Rn Surgery 04/28/22 Jaylin Ribeiro, B[address] TURNER [address] [place] [address] Rhiannon@[facility] Rn Surgery Oncology 05/12/22 Sabine Harrison, RN [address] [place] [address] JOSÉ [email or web address]@[email or web address] Primary Infusion Nurse 05/19/22 Ivon Cameron RN [address] [place] [address] [email or web address] Associate Infusion Nurse 05/19/22 Zara Emerson PA-C [address] [place] [address] and Women's [place], [place] [email or web address] Physician Cell Repairer 06/15/23 Jada Mayfield MD, MPH [address] [place] [address] [email or web address] Radiation Oncology 06/15/23 documented as of this encounter Additional Source Comments The information contained in this document represents components of the legal health record. It is not the complete legal health record.[facility]
== END 2025-07-24 13:28 | disposition home or self-care (01) ==
LOC: HO.HMCFM 12:53
PROVIDERS: PCP Internal Medicine; Visit Provider Internal Medicine
DX: F39 Unspecified mood [affective] disorder (principal); K63.5 Polyp of colon; C10.9 Malignant neoplasm of oropharynx, unspecified; R73.9 Hyperglycemia, unspecified

== ENCOUNTER 2025-08-06 14:39 | Outpatient (AMB) | payer MEDICARE, MEDICAID, SELFPAY ==
--- NOTE | 2025-08-06 14:47 | A.OFFPSYCH_ITS ---
Intake Intake Visit Reasons: follow up E Commerce Marketing Analyst Required: No Allergies metronidazole (From Flagyl) Allergy (Unknown, Verified 07/24/25 12:59) Unknown moxifloxacin (From Avelox) Allergy (Unknown, Verified 07/24/25 12:59) Unknown penicillin G Allergy (Unknown, Verified 07/24/25 12:59) Unknown Medication List - Last Reconciled 08/06/25 by Miladis Jenkins APRN aspirin (Adult Low Dose Aspirin) 81 mg PO DAILY clorazepate dipotassium 7.5 mg PO QID esomeprazole magnesium (Nexium 24HR) 20 mg PO DAILY lactobacillus combination no.4 (Probiotic) 3,000 mmu cells PO DAILY lamotrigine (Lamictal) 50 mg (2 x 25 mg) PO DAILY levothyroxine 137 mcg PO DAILY mirtazapine orally AT BEDTIME; take one to two tablets at bedtime domjwhyt-fwlyhlowh-DO 3.5-10,000-1 mg/mL-unit/mL-% 4 drps otic (ear) left Q8H 10 days olanzapine 2.5 mg PO DAILY PRN polyethylene glycol 3350 (Miralax) 17 grams PO DAILY psyllium husk (Daily Fiber) 0.4 grams PO DAILY quetiapine 25 mg PO QID 90 days sennosides (Natural Senna Laxative) 8.6 mg PO DAILY HPI- Psychiatric Chief Complaint: follow up HPI Narrative: I feel much better since taking the lamictal and olanzepine. reports appetite good. Reports taking an MVI, continuing Boost, however, now able to eat other food. She has reduced the Quetiapine and started with Olanzapine. She will conside switching completely. Reports anxiety is more managable with ongoing stressors including son currently working on his traffic law attorney license; sister was placed in a nursing facility in [place]. She worries about her son's future. Past Psychiatric History: Trials: Sertraline, Seroquel, Mirtazapine Subjective Subjective Medication Compliance: Yes Side effects from medications: No Review of Systems Medical Review of Systems: unchanged Mental Status Exam Mental Status Exam Patient Appearance: Appropriate Patient Orientation: Person, Place, Time and Situation Level of Consciousness: Alert Patient Behavior: Appropriate, Talkative and Anxious Mood Description: Anxious Affect Description: Anxious Patient Cognition Impaired: No Ability to Follow Directions: Good Speech Pattern: Spontaneous Speech Memory Description: Intact Hallucinations: None Delusions: Not Present Thought Process: Intact and Goal Oriented Thought Content: positive for Intact and positive for Goal Oriented Judgement: Good Assessment and Plan Assessment & Plan (1) Generalized anxiety disorder: Status: Acute Code(s): F41.1 - Generalized anxiety disorder (2) Mood disorder: Status: Acute Code(s): F39 - Unspecified mood [affective] disorder Plan Continue Lamictal, Olanzapine, Seroquel, Mirtazapine increase lamictal to 75mg in am daily consider increase in olanzapine at next visit and d/c seroquel Medications: Changed From lamotrigine (Lamictal) 50 mg (2 x 25 mg) PO DAILY 60 tabs 1RF To lamotrigine (Lamictal) 75 mg (3 x 25 mg) PO DAILY 60 tabs 1RF Refilled quetiapine 25 mg PO QID 360 tabs 3RF 90 days mirtazapine orally AT BEDTIME; take one to two tablets at bedtime 180 tabs 3RF olanzapine 2.5 mg PO DAILY PRN 30 tabs 1RF anxiety, agitation Counseling and coordination of Care Pt. Self Management counseling: Maintenance-social rhythm, Mod caffeine/ETOH intake, Nutrition education and improvement, Sleep hygiene and General coping skills Medication management counseling: Effectiveness, Side effects, Dosing range, Duration, Drug interaction and Adherence Diagnosis and Prognosis Counseling: Accuracy of diagnosis, Prognosis over time, Impact of diagnosis on life functions, Impact of family relationship and Adequacy of current interventions Details: I spent 40 minutes reviewing the record, seeing the patient and documenting in the medical record. Counseling provided to the patient/caregiver as outlined below. Addressed patient/caregiver concerns regarding current medication regime including effective adherence. Addressed patient/caregiver concerns regarding diagnosis and prognosis including accuracy of diagnosis, prognosis over time, impact of diagnosis. Addressed patient/caregiver concerns regarding impact of recent stressors. [facility] Medical History FHx: cholecystectomy Vitamin D deficiency Neck mass Multiple allergies Insomnia Hyperglycemia Hypercholesteremia Hiatal hernia H/O gastroesophageal reflux (GERD) Cervical radiculopathy Anxiety Surgical History History of appendectomy H/O: section Family History Mother Aneurysm HTN (hypertension) Sister Mental disorder Paternal Grandfather Heart attack Social History Alcohol intake: never Patient Tobacco Use Status: Current everyday Tobacco user Years Smoked: 57 e-Cigarette/Vaping Use: Never Used Second Hand Smoke Exposure: No service: No Current occupational status: retired Cognitive needs: No Hearing needs: Yes (difficulty hearing) Vision needs: Yes (glasses) Social History: Father was a chief i dispatcher, sister with bipolar disorder and borderline personality. Pt's son is 36, he is my life Substance History: smoker of 57 years Trauma History: affirms Coding Level of Care Code Est Pt Level 4 (15514) Diagnoses Generalized anxiety disorder F41.1 Mood disorder F39
--- OUTSIDE RECORDS SUMMARY | 2025-08-06 21:09 | XMS_ITS ---
Author Organization [facility] Address [address] [place] [address] Phone Care Team Providers Care Commissary Production Supervisor Name Role Phone Catalina Gastelum MD Primary Care Provider Quin Barragan DECISION UNIT RN Unavailable [phone] Jaylin Ribeiro DECISION UNIT RN Unavailable [phone] Sabine Harrison RN Unavailable MICHELLE [email or web address]. Ivon Vitale RN Unavailable Oralia [email or web address] [facility] Zara Emerson PA-C Unavailable + Jada Mayfield MD, MPH Unavailable +- [phone] Active Problems Problem Noted Date Diagnosed Date [...] if unable to do this by mouth. STAMP CLERK Support: As needed Emotional: Coping well Assessment [...] if unable to do this by mouth. STAMP CLERK Support: As needed Emotional: Coping well Assessment [...] if unable to do this by mouth. STAMP CLERK Support: As needed Emotional: Coping well Assessment [...] if unable to do this by mouth. STAMP CLERK Support: As needed Emotional: Coping well Assessment [...] if unable to do this by mouth. STAMP CLERK Support: As needed Emotional: Coping well Assessment & Plan (06/13/2022 9:19 PM EDT): Treatment: Weekly Cisplatin + XRT OK to continue treatment today: C1 D22 Pain Management: Acetaminophen Nausea Management: Metoclopramide, Ondansetron, Dexamethasone and Lorazepam Bowel Regimen: Colace and Senna Oral Care / Dental Hygiene: Oral rinses as indicated Nutritional Support: Tolerating full oral diet. Weight is down. STAMP CLERK Support: As needed Emotional: Coping well Assessment [...] Tolerating full oral diet. Weight is down. STAMP CLERK Support: As needed Emotional: Coping well Assessment [...] Tolerating full oral diet. Weight is down. STAMP CLERK Support: As needed Emotional: Coping well Current [...]
--- OUTSIDE RECORDS SUMMARY | 2025-08-06 21:09 | XMS_ITS | Encounter Summary ---
Author Organization [facility] Address [address] [place] [address] Phone Care Team Providers Care Clerical Stock Inspector Name Role Phone Catalina Gastelum MD Primary Care Provider Quin Barragan FIRMWARE TEST ENGINEER Unavailable [phone] Jaylin Ribeiro FIRMWARE TEST ENGINEER Unavailable [phone] Sabine Harrison RN Unavailable MICHELLE [email or web address]. Ivon Vitale RN Unavailable Oralia [email or web address] [facility] Zara Emerson PA-C Unavailable + Jada Mayfield MD, MPH Unavailable +- [phone] Encounter Details Date Type Department Care Team (Late st Contact Info) Description 09/29/2022 Procedure Pass [facility] Imaging Department, [facility] [place], PET/CT [address] [place] [address] Social History Tobacco Use Types Packs/Day Years [...] 9:40 AM EST Blood Draw Laboratory Services, [address], 2nd [place] [address] Reid Muhammad MD [address] [place] [address] [email or web address] 10/04/2025 10:30 AM EST [facility], [address], [address] [place] [address] Derrick Munoz MD [address] [place] [address] [email or web address] 03/21/2026 1:00 PM EDT Office Visit [facility], [address], [address] [place] [address] Andres Banks MD, PhD [address] [place] [address] [email or web address] documented as of this encounter Visit Diagnoses Not on filedocumented in this encounter Care Teams Clerical Stock Inspector Relationship Specialty Start Date End Date Catalina Gastelum MD PCP - General Internal Medicine 04/09/22 Quin Barragan [address] [address] Shira@[email or web address] Highway Construction Inspector 04/28/22 Jaylin Ribeiro, [address] [address] [email or web address]@[facility] Highway Construction Inspector Oncology 05/12/22 Sabine Harrison, RN [address] [place] [address] JOSÉ MIGUEL@[email or web address] Primary Infusion Nurse 05/19/22 Ivon Cameron, RN [address] [place] [address] [email or web address] Associate Infusion Nurse 05/19/22 Zara Emerson PA-C [address] [place], [place] [address] [place] [address] [email or web address] Physician Credit And Collection Manager 06/15/23 Jada Mayfield MD, MPH [address] [place] [address] [email or web address] Radiation Oncology 06/15/23 documented as of this encounter Additional Source Comments The information contained in this document represents components of the legal health record. It is not the complete legal health record.[facility]
--- OUTSIDE RECORDS SUMMARY | 2025-08-06 21:09 | XMS_ITS | Encounter Summary ---
Author Organization [facility] Address [address] [facility] [address] [place] [address] Phone Care Team Providers Care Prosthetist Name Role Phone Catalina Gastelum MD Primary Care Provider + [phone] Quin Barragan BOTTLE CAPPER Unavailable [phone] Jaylin Ribeiro BOTTLE CAPPER Unavailable [phone] Sabine Harrison RN Unavailable MICHELLE [email or web address]. Ivon Vitale RN Unavailable Oralia [email or web address] Zara Emerson PA-C Unavailable + Jada Mayfield MD, MPH Unavailable + [phone] Encounter Details Date Type Department Care Team (Late st Contact Info) Description 06/03/2022 Prep for Surgery [facility]'s [address] [address] Nery Campbell PA-C [address] [place] [address] [email or web address] Social History Tobacco Use [...] 9:40 AM EST Blood Draw Laboratory Services, [address], [address] [place] [address] Reid Muhammad MD [address] [place] [address] [email or web address] 10/04/2025 10:30 AM EST Office Visit [facility], [address], [place] [address] Derrick Munoz MD [address] [place] [address] [email or web address] 03/21/2026 1:00 PM EDT Office Visit [facility], [address], [address] [place] [address] Andres Banks MD, PhD [address] [place] [address] documented as of this encounter Visit Diagnoses Not on filedocumented in this encounter Care Teams Prosthetist Relationship Specialty Start Date End Date Catalina Gastelum MD PCP - General Internal Medicine 04/09/22 Quin Barragan, [address] [address] [email or web address] Plant General Manager 04/28/22 Jaylin Ribeiro, [facility] [address] [place] [address] Rhiannon@[facility] Plant General Manager Oncology 05/12/22 Sabine Harrison, RN [address] [place] [address] JOSÉ MIGUEL@[facility] Primary Infusion Nurse 05/19/22 Ivon Cameron, RN [address] [place] [address] [email or web address] Associate Infusion Nurse 05/19/22 Zara Emerson PA-C [address] [place] [address] [place] [address] Physician Cro 06/15/23 Jada Mayfield MD, MPH [address] [place] [address] [place] [address] [email or web address] Radiation Oncology 06/15/23 documented as of this encounter Additional Source Comments The information contained in this document represents components of the legal health record. It is not the complete legal health record.[facility]
--- OUTSIDE RECORDS SUMMARY | 2025-08-06 21:09 | XMS_ITS | Encounter Summary ---
Author Organization [facility] Address [address] [place] [address] Phone Care Team Providers Care Make Up Artist Name Role Phone Catalina Gastelum MD Primary Care Provider Quin Barragan OCCUPATIONAL REHABILITATION AIDE Unavailable [phone] Jayiln Ribeiro OCCUPATIONAL REHABILITATION AIDE Unavailable [phone] Sabine Harrison RN Unavailable MICHELLE [email or web address]. Ivon Vitale RN Unavailable Oralia [email or web address] [facility] Zara Emerson PA-C Unavailable + Jada Mayfield MD, MPH Unavailable +- [phone] Encounter Details Date Type Department Care Team (Late st Contact Info) Description 06/04/2022 Procedure Pass [facility] Periop [address] [place] [address] Social History Tobacco Use Types Packs/Day Years [...] AM EST Blood Draw Laboratory Services, [address], [address]nd [place] [address] Reid Muhammad MD [address] [place] [address] [email or web address] 10/04/2025 10:30 AM EST Office Visit [facility], [address], [address] [place] [address] Derrick Munoz MD [address] [place] [address] Olegario@[email or web address] 03/21/2026 1:00 PM EDT Office Visit [facility], [address], [address] [place] [address] Andres Banks MD, PhD [address] [place] [address] [email or web address] documented as of this encounter Visit Diagnoses Not on filedocumented in this encounter Care Teams Make Up Artist Relationship Specialty Start Date End Date Catalina Gastelum MD PCP - General Internal Medicine 04/09/22 Quin Barragan [address] [address] Shira@[facility] Boat Hop 04/28/22 Jaylin Ribeiro, [address] [address] [email or web address] Boat Hop Oncology 05/12/22 Sabine Harrison, RN [address] [place] [address] JOSÉ MIGUEL@[facility] Primary Infusion Nurse 05/19/22 Ivon Cameron, RN [address] [place] [address] [email or web address] Associate Infusion Nurse 05/19/22 Zara Emerson PA-C [address] [place], [place] [address] [place] [address] [email or web address] Physician Insole Buffer 06/15/23 Jada Mayfield MD, MPH [address] [place] [address] [place] [address] Francy@[email or web address] Radiation Oncology 06/15/23 documented as of this encounter Additional Source Comments The information contained in this document represents components of the legal health record. It is not the complete legal health record.[facility]
--- OUTSIDE RECORDS SUMMARY | 2025-08-06 21:09 | XMS_ITS | Encounter Summary ---
Author Organization [facility] Address [address] [place] [address] Phone Care Team Providers Care Thresher Broomcorn Name Role Phone Catalina Gastelum MD Primary Care Provider Quin Barragan HIDE AND SKIN FLESHING MACHINE OPERATOR Unavailable [phone] Jaylin Ribeiro HIDE AND SKIN FLESHING MACHINE OPERATOR Unavailable [phone] Sabine Harrison RN Unavailable MICHELLE [email or web address]. Ivon Vitale RN Unavailable Oralia [email or web address] [email or web address] Zara Emerson PA-C Unavailable + Jada Mayfield MD, MPH Unavailable +- [phone] Encounter Details Date Type Department Care Team (Late st Contact Info) Description 11/06/2022 Procedure Pass Trudy Lank Imaging Department, [facility] [place] [address] [facility], Floor [address] [place] [address] Social History Tobacco Use Types Packs/Day Years [...] 9:40 AM EST Blood Draw Laboratory Services, [address], 2nd [place] [address] Reid Muhammad MD [address] [place] [address] [email or web address] 10/04/2025 10:30 AM EST Office Visit [facility], [address], [address] [place] [address] Derrick Munoz MD [address] [place] [address] Olegario@[facility] 03/21/2026 1:00 PM EDT Office Visit [facility], [address], [address] [place] [address] Andres Banks MD, PhD [address] [place] [address] [email or web address] documented as of this encounter Visit Diagnoses Not on filedocumented in this encounter Care Teams Thresher Broomcorn Relationship Specialty Start Date End Date Catalina Gastelum MD PCP - General Internal Medicine 04/09/22 Quin Barragan LICSW [address] [place] [address] [email or web address] Cold Roll Catcher 04/28/22 Jaylin Ribeiro [address] [address] Rhianonn@[facility] Cold Roll Catcher Oncology 05/12/22 Sabine Harrison, ALY [address] [place] [address] JOSÉ MGIUEL@[facility] Primary Infusion Nurse 05/19/22 Ivon Cameron RN [address] [place] [address] Marquez@[email or web address] Associate Infusion Nurse 05/19/22 Zara Emerson PA-C [address] [place], [place] [address] [address] [email or web address] Physician Portfolio Management Marketing 06/15/23 Jada Mayfield MD, MPH [address] [place] [address] [place] [address] Francy@[email or web address] Radiation Oncology 06/15/23 documented as of this encounter Additional Source Comments The information contained in this document represents components of the legal health record. It is not the complete legal health record.[facility]
--- OUTSIDE RECORDS SUMMARY | 2025-08-06 21:09 | XMS_ITS | Encounter Summary ---
Author Organization [facility] Address [address] [facility] [address] [place] [address] Phone Care Team Providers Care Juice Mixer Name Role Phone Catalina Gastelum MD Primary Care Provider Quin Barragan DOCK LOADER Unavailable [phone] Jaylin Ribeiro DOCK LOADER Unavailable [phone] Sabine Harrison RN Unavailable MICHELLE [email or web address]. Ivon Vitale RN Unavailable Oralia [email or web address] [facility] Zara Emerson PA-C Unavailable + Jada Mayfield MD, MPH Unavailable +- [phone] Encounter Details Date Type Department Care Team (Late st Contact Info) Description 07/23/2022 Procedure Pass [facility] [address] [place] [address] Social History Tobacco Use Types Packs/Day Years [...] 07/23/2022 10:28 PM Reid Espinoza, ALY * [place] Suicide Severity Rating Scale (Screener/Recent Self-Report) Question [...] 9:40 AM EST Blood Draw Laboratory Services, [address], [address] [place] [address] Reid Muhammad MD [address] [place] [address] [email or web address] 10/04/2025 10:30 AM EST Office Visit [facility], [address], [place] [address] Derrick Munoz MD [address] [place] [address] [email or web address] 03/21/2026 1:00 PM EDT Office Visit [facility], [address], [address], [place] [address] Andres Banks MD, PhD [address] [place] [address] [email or web address] documented as of this encounter Visit Diagnoses Not on filedocumented in this encounter Care Teams Juice Mixer Relationship Specialty Start Date End Date Catalina Gastelum MD PCP - General Internal Medicine 04/09/22 Quin Barragan, [address] [address] Shira@[facility] Reel Hooker 04/28/22 Jaylin Ribeiro, [address] [address] Rhiannon@[facility] Reel [place]er Oncology 05/12/22 Sabine Harrison, RN [address] [place] [address] JOSÉ MIGUEL@[facility] Primary Infusion Nurse 05/19/22 Ivon Cameron RN [address] [place] [address] [email or web address] Associate Infusion Nurse 05/19/22 Zara Emerson PA-C [address] [place] [address] [place] [address] [email or web address] Physician Tamale Machine Feeder 06/15/23 Jada Mayfield MD, MPH [address] [facility] [place] [address] [email or web address] Radiation Oncology 06/15/23 documented as of this encounter Additional Source Comments The information contained in this document represents components of the legal health record. It is not the complete legal health record.[facility]
--- OUTSIDE RECORDS SUMMARY | 2025-08-06 21:09 | XMS_ITS | Encounter Summary ---
Author Organization [facility] Address [address] [facility] [address] [place] [address] Phone Care Team Providers Care Hogshead Hooper Name Role Phone Catalina Gastelum MD Primary Care Provider [phone] Quin Barragan HOUSEMAID Unavailable [phone] Jaylin Ribeiro HOUSEMAID Unavailable [phone] Sabine Harrison RN Unavailable MICHELLE ROTH@[email or web address]. Ivon Vitale RN Unavailable Oralia [email or web address] [facility] Zara Emerson PA-C Unavailable + Jada Mayfield MD, MPH Unavailable +- [phone] Encounter Details Date Type Department Care Team (Late st Contact Info) Description 11/06/2022 Procedure Pass Trudy Lank Imaging Department, [facility] [place], [place] [address] [facility], Floor [address] [place] [address] Social History Tobacco Use Types [...] 9:40 AM EST Blood Draw Laboratory Services, [address], 2nd [place] [address] Reid Muhammad MD [address] [place] [address] [email or web address] 10/04/2025 10:30 AM EST Office Visit [facility], [address], [address] [place] [address] Derrick Munoz MD [address] [place] [address] Olegario@[facility] 03/21/2026 1:00 PM EDT Office Visit [facility], [address], [address] [place] [address] Andres Banks MD, PhD [address] [place] [address] [email or web address] documented as of this encounter Visit Diagnoses Not on filedocumented in this encounter Care Teams Hogshead Hooper Relationship Specialty Start Date End Date Catalina Gastelum MD PCP - General Internal Medicine 04/09/22 Quin Barragan LICSW [address] [place] [address] Shira@[email or web address] Criminology Teacher 04/28/22 Jaylin Ribeiro [address] [address] Rhiannon@[facility] Criminology Teacher Oncology 05/12/22 Sabine Harrison, ALY [address] [place] [address] JOSÉ MIGUEL@[facility] Primary Infusion Nurse 05/19/22 Ivon Cameron RN [address] [place] [address] Marquez@[email or web address] Associate Infusion Nurse 05/19/22 Zara Emerson PA-C [address] [place], [place] [address] [place] [address] [email or web address] Physician Highway Patrol Officer 06/15/23 Jada Mayfield MD, MPH [address] [place] [address] [place] [address] [email or web address] Radiation Oncology 06/15/23 documented as of this encounter Additional Source Comments The information contained in this document represents components of the legal health record. It is not the complete legal health record.[facility]
--- OUTSIDE RECORDS SUMMARY | 2025-08-06 21:09 | XMS_ITS | Encounter Summary ---
Author Organization [facility] Address [address] [address] [place] [address] Phone Care Team Providers Care Computer Operations Supervisor Name Role Phone Catalina Gastelum MD Primary Care Provider Quin Barragan INVOICE CLERK Unavailable [phone] Jaylin Ribeiro INVOICE CLERK Unavailable [phone] Sabine Harrison RN Unavailable MICHELLE [email or web address]. Ivon Vitale RN Unavailable Oralia [email or web address] [facility] Zara Emerson PA-C Unavailable + Jada Mayfield MD, MPH Unavailable +- [phone] Encounter Details Date Type Department Care Team (Late st Contact Info) Description 04/20/2022 Procedure Pass [facility] Periop [address] [place] [address] Social History Tobacco Use Types Packs/Day Years [...] AM EST Blood Draw Laboratory Services, [address], [address]nd [place] [address] Reid Muhammad MD [address] [place] [address] [email or web address] [facility] 10/04/2025 10:30 AM EST Office Visit [facility], [address], [address] [place] [address] Derrick Munoz MD [address] [place] [address] Olegario@[facility] 03/21/2026 1:00 PM EDT Office Visit [facility], [address], [address] [place] [address] Andres Banks MD, PhD [address] [place] [address] [email or web address] documented as of this encounter Visit Diagnoses Not on filedocumented in this encounter Care Teams Computer Operations Supervisor Relationship Specialty Start Date End Date Catalina Gastelum MD PCP - General Internal Medicine 04/09/22 Quin Barragan [address] [address] Shira@[email or web address] Merchandise Marker 04/28/22 Jaylin Ribeiro, [address] [address] [email or web address] Merchandise Marker Oncology 05/12/22 Sabine Harrison, RN [address] [place] [address] JOSÉ MIGUEL@[facility] Primary Infusion Nurse 05/19/22 Ivon Cameron, RN [address] [place] [address] Marquez@[email or web address] Associate Infusion Nurse 05/19/22 Zara Emerson PA-C [address] [place], [place] [address] [place] [address] [email or web address] Physician Mold Puller 06/15/23 Jada Mayfield MD, MPH [address] [place] [address] [place] [address] [email or web address] Radiation Oncology 06/15/23 documented as of this encounter Additional Source Comments The information contained in this document represents components of the legal health record. It is not the complete legal health record.[facility]
--- OUTSIDE RECORDS SUMMARY | 2025-08-06 21:09 | XMS_ITS | Encounter Summary ---
Author Organization [facility] Address [address] [place] [address] Phone Care Team Providers Care Education Site Manager Name Role Phone Catalina Gastelum MD Primary Care Provider + [phone] Quin Barragan DISPLAYER MERCHANDISE Unavailable [phone] Jaylin Ribeiro DISPLAYER MERCHANDISE Unavailable [phone] Sabine Harrison RN Unavailable [email or web address] Ivon Vitale RN Unavailable Oralia [email or web address]. [facility] Zara Emerson PA-C Unavailable + Jada Mayfield MD, MPH Unavailable + [phone] Encounter Details Date Type Department Care Team (Late st Contact Info) Description 06/03/2022 Prep for Surgery [facility]'s [address] [address] Nery Campbell PA-C [address] [place] [address] [email or web address] Social History Tobacco Use Types Packs/Day Years [...] Campbell PA-C - 06/03/2022 5:19 PM EDT [facility] Metabolic Support Service Phone Screen [...] adenopathy. Currently receiving weekly cisplatin and XRT. [facility] has been consulted for PEG placement for [...] 125 mcg by mouth every morning. ??? jbefbnbel-ozejxeoeyfqknmz-frlh-mag-simethicone (MAGIC MOUTHWASH-BLM) 25-176-479-40 mg/30mL suspension Swish and spit 10 mL [...] indicated. Nery Campbell PA-C Metabolic Support Service [facility] Office [phone] Pager [phone] documented in this encounter Plan of Treatment Upcoming Encounters Date Type Department Care Team (Late st Contact Info) Description 10/04/2025 9:40 AM EST Blood Draw Laboratory Services, [address], [address] [place] [address] Reid Muhammad MD [address] [place] [address] [email or web address] 10/04/2025 10:30 AM EST [facility], [address], [place] [address] Derrick Munoz MD [address] [place] [address] [email or web address] 03/21/2026 1:00 PM EDT Office Visit [facility], [address], [address] [place] [address] Andres Banks MD, PhD [address] [place] [address] [email or web address] documented as of this encounter Visit Diagnoses Not on filedocumented in this encounter Care Teams Education Site Manager Relationship Specialty Start Date End Date Catalina Gastelum MD PCP - General Internal Medicine 04/09/22 Quin Barragan, [facility] [address] [place] [address] Shira@[email or web address] Bonderizer Operator 04/28/22 Jaylin Ribeiro, [facility] [address] [place] [address] [email or web address] Bonderizer Operator Oncology 05/12/22 Sabine Harrison, RN [address] [place] [address] JOSÉ [email or web address] Primary Infusion Nurse 05/19/22 Ivon Cameron RN [address] [place] [address] [email or web address] Associate Infusion Nurse 05/19/22 Zara Emerson PA-C [address] [place] [address] [place] [address] [email or web address] Physician Test Fixture Designer 06/15/23 Jada Mayfield MD, MPH [address] [facility] [place] [address] [email or web address] Radiation Oncology 06/15/23 documented as of this encounter Additional Source Comments The information contained in this document represents components of the legal health record. It is not the complete legal health record.[facility]
--- OUTSIDE RECORDS SUMMARY | 2025-08-06 21:09 | XMS_ITS | Encounter Summary ---
Author Organization [facility] Address [address] [place] [address] Phone Care Team Providers Care Sieve Repairer Name Role Phone Catalina Gastelum MD Primary Care Provider Quin Barragan THERAPIST'S ASSISTANT Unavailable [phone] Jaylin Ribeiro THERAPIST'S ASSISTANT Unavailable [phone] Sabine Harrison RN Unavailable [email or web address] Ivon Vitale RN Unavailable Oralia [email or web address] [facility] Zara Emerson PA-C Unavailable + Jada Mayfield MD, MPH Unavailable +- [phone] Encounter Details Date Type Department Care Team (Late st Contact Info) Description 12/07/2023 Procedure Pass Trudy Lank Imaging Department, [facility] [place], [place] [address] [facility], Floor [address] [place] [address] Social History Tobacco Use Types Packs/Day Years [...] AM EST Blood Draw Laboratory Services, [address] [place] [address] Reid Muhammad MD [address] [place] [address] [email or web address] 10/04/2025 10:30 AM EST Office [facility], [address] [place] [address] Derrick Munoz MD [address] [place] [address] [email or web address] 03/21/2026 1:00 PM EDT Office Visit [facility], [address] [place] [address] Andres Banks MD, PhD [address] [place] [address] documented as of this encounter Visit Diagnoses Not on filedocumented in this encounter Care Teams Sieve Repairer Relationship Specialty Start Date End Date Catalina Gastelum MD PCP - General Internal Medicine 04/09/22 Quin Barragan [address] [address] [email or web address] Job Order Clerk 04/28/22 Jaylin Ribeiro, [address] [address] [email or web address] Job Order Clerk Oncology 05/12/22 Sabine Harrison, RN [address] [place] [address] JOSÉ [email or web address] Primary Infusion Nurse 05/19/22 Ivon Cameron, RN [address] [place] [address] [email or web address] Associate Infusion Nurse 05/19/22 Zara Emerson PA-C [address] [place] [address] [email or web address] Physician Patient Access 06/15/23 Jada Mayfield MD, MPH [address] [facility] [place] [address] [email or web address] Radiation Oncology 06/15/23 documented as of this encounter Additional Source Comments The information contained in this document represents components of the legal health record. It is not the complete legal health record.[facility]
--- OUTSIDE RECORDS SUMMARY | 2025-08-06 21:09 | XMS_ITS | Encounter Summary ---
Author Organization [facility] Address [address] [facility] [address] [place] [address] Phone Care Team Providers Care Maintenance And Engineering Manager Name Role Phone Catalina Gastelum MD Primary Care Provider Quin Barragan INSOLE COVERER Unavailable [phone] Jaylin Ribeiro INSOLE COVERER Unavailable [phone] Sabine Harrison RN Unavailable [email or web address] Ivon Vitale RN Unavailable Oralia [email or web address] Zara Emerson PA-C Unavailable + Jada Mayfield MD, MPH Unavailable +- [phone] Encounter Details Date Type Department Care Team (Late st Contact Info) Description 12/07/2023 Procedure Pass Trudy Lank Imaging Department, [facility] [place], [place] [address] [facility], Floor [address] [place] [address] Social History Tobacco Use Types Packs/Day Years [...] AM EST Blood Draw Laboratory Services, [address] [place] [address] Reid Muhammad MD [address] [place] [address] [email or web address] 10/04/2025 10:30 AM EST Office [facility], [address] [place] [address] Derrick Munoz MD [address] [place] [address] [email or web address]@[email or web address] 03/21/2026 1:00 PM EDT Office Visit [facility], [address], [address] [place] [address] Andres Banks MD, PhD [address] [place] [phone] documented as of this encounter Visit Diagnoses Not on filedocumented in this encounter Care Teams Maintenance And Engineering Manager Relationship Specialty Start Date End Date Catalina Gastelum MD PCP - General Internal Medicine 04/09/22 Quin Barragan [address] [address] [email or web address] Lithographic Artist 04/28/22 Jaylin Ribeiro, [address] [address] [email or web address]@[email or web address] Lithographic Artist Oncology 05/12/22 Sabine Harrison, RN [address] [place] [address] JOSÉ [email or web address] Primary Infusion Nurse 05/19/22 Ivon Cameron, RN [address] [place] [address] [email or web address] Associate Infusion Nurse 05/19/22 Zara Emerson PA-C [address] [place] [address] [email or web address] Physician Burglar Alarm Superintendent 06/15/23 Jada Mayfield MD, MPH [address] [facility] [place] [address] [email or web address] Radiation Oncology 06/15/23 documented as of this encounter Additional Source Comments The information contained in this document represents components of the legal health record. It is not the complete legal health record.[facility]
--- OUTSIDE RECORDS SUMMARY | 2025-08-06 21:09 | XMS_ITS | Clinical Summary ---
Author Organization [address] [facility] Address [address] [place] [address] Phone Care Team Providers Care Hall Clerk Name Role Phone Catalina Paris MD Primary Care Provider [phone] Social History Tobacco Use Types Packs/Day Years [...] to complete this topic Insurance [facility] [place] [id number] [place] Care Teams Hall Clerk Relationship Specialty Start Date End Date Catalina Paris MD [address] [place] [address] [address] [place] [id number] PCP - General 08/07/22
--- OUTSIDE RECORDS SUMMARY | 2025-08-06 21:09 | XMS_ITS | Clinical Summary ---
Author Organization [facility] Address [address] [facility] [address] [place] [address] Phone Care Team Providers Care Associate Professor Of Physics Name Role Phone Catalina Gastelum MD Primary Care Provider [phone] Quin Barragan CHILD CARE SITTER Unavailable [phone] Jaylin Ribeiro CHILD CARE SITTER Unavailable [phone] Sabine Harrison RN Unavailable [email or web address]. Ivon Vitale RN Unavailable Oralia [email or web address]. [facility] Zara Emerson PA-C Unavailable + Jada Mayfield MD, MPH Unavailable +- [phone] Allergies Active Allergy Reactions Criticality Noted Date [...] Active diphenhydramine -lidocaine-alum -mag-simethicon e (MAGIC MOUTHWASH-BLM) [id number] mg/30mL suspension Swish and spit 10 mL [...] if unable to do this by mouth. DEBT MANAGEMENT COUNSELOR Support: As needed Emotional: Coping well Assessment [...] if unable to do this by mouth. DEBT MANAGEMENT COUNSELOR Support: As needed Emotional: Coping well Assessment [...] if unable to do this by mouth. DEBT MANAGEMENT COUNSELOR Support: As needed Emotional: Coping well Assessment [...] if unable to do this by mouth. DEBT MANAGEMENT COUNSELOR Support: As needed Emotional: Coping well Assessment [...] if unable to do this by mouth. DEBT MANAGEMENT COUNSELOR Support: As needed Emotional: Coping well Assessment & Plan (06/13/2022 9:19 PM EDT): Treatment: Weekly Cisplatin + XRT OK to continue treatment today: C1 D22 Pain Management: Acetaminophen Nausea Management: Metoclopramide, Ondansetron, Dexamethasone and Lorazepam Bowel Regimen: Colace and Senna Oral Care / Dental Hygiene: Oral rinses as indicated Nutritional Support: Tolerating full oral diet. Weight is down. DEBT MANAGEMENT COUNSELOR Support: As needed Emotional: Coping well Assessment [...] Tolerating full oral diet. Weight is down. DEBT MANAGEMENT COUNSELOR Support: As needed Emotional: Coping well Assessment [...] Tolerating full oral diet. Weight is down. DEBT MANAGEMENT COUNSELOR Support: As needed Emotional: Coping well Immunizations [...] 9:40 AM EST Blood Draw Laboratory Services, [address], 2nd [place] [address] Reid Muhammad MD [address] [place] [address] [email or web address] 10/04/2025 10:30 AM EST Office Visit [facility], [address], 11[address] Floor [place] [id number] Derrick Munoz MD [address] [place] [address] [email or web address] 03/21/2026 1:00 PM EDT Office [facility], [facility] [address] [place] [address], 11th [place] [address] Andres Banks MD, PhD [address] [place] [address] Health Maintenance Due Date Last Done Comments [...] EST) TSH 9.71(H) 0.27 - 4.20 uIU/mL [facility] LIC# [id number] Blood 10/28/2022 9:40 AM EST 10/28/2022 9:59 AM EST us Derrick Munoz MD LAB BLOOD BKR ORDERABLES Veronica anaya Result [facility] LIC# [id number] [address] [place] [address] from Last 3 Months or Most Recently Relevant to Health Maintenance [place] [address] [place], [place] [id number] BLUE CROSS [place] MEDICARE HMO BLUE REPLACEMENT [facility] MEDICARE O BLUE REPLACEMENT [facility] MEDIC[facility] HMO BLUE REPLACEMENT [facility] QMB Member Subscriber Plan / Payer (Ef fective 2024-) Name:Anu Alexander Relation to Subscriber:Self Name:Anu Alexander Payer ID:[id number] Group ID:Not on file Type:Medicaid Address: [address] [id number] [place] BLUE [facility]PLACEMENT [facility] Member Subscriber Plan / Payer (Ef fective 2024-Present) Name:Anu Alexander Relation to Subscriber:Self Name:Anu Alexander Payer ID:[id number] Group ID:Not on file Type:Medicaid Address: [address] [id number] [place] BLUE REPLACEMENT [facility] [place] BLUE REPLACEMENT MEDICARE CLINICAL TRIAL RESTRICTED USE Advance Directives For more information, please contact: [phone] (9AM - 5PM [facility], Wednesday-Wednesday) Documents on File Type Date Recorded Patient Military Science Instructor Expl anation Healthcare Proxy 07/29/2022 4:34 PM * Full Code (Latest Code Status on File) Date Activated Date Inactivated Comments 07/26/2022 10:30 AM Question Answer Comments Code Status Confirmed With: Patient Care Teams Associate Professor Of Physics Relationship Specialty Start Date End Date Catalina Gastelum MD PCP - General Internal Medicine 04/09/22 Quin Barragan CHILD CARE SITTER [address] [place] [address] Shira@[email or web address] [place] 04/28/22 Jaylin Ribeiro [address] [address] [email or web address] [place] Oncology 05/12/22 Sabine Harrison, ALY [address] [place] [address] JOSÉ [email or web address] Primary Infusion Nurse 05/19/22 Ivon Cameron, ALY [address] [place] [address] [email or web address] Associate Infusion Nurse 05/19/22 Zara Emerson PA-C [address] [place] [address] [place] [address] [email or web address] Physician Tape Transferrer 06/15/23 Jada Mayfield MD, MPH [address] [place] [address] [place] [address] [email or web address] Radiation Oncology 06/15/23 Additional Source Comments The information contained in this document represents components of the legal health record. It is not the complete legal health record.[facility]
== END 2025-08-06 15:21 | disposition home or self-care (01) ==
LOC: HO.HOP 14:39
PROVIDERS: PCP Internal Medicine; Visit Provider Clinical Nurse Specialist Psychiatric/Mental Health
DX: F41.1 Generalized anxiety disorder (principal); F39 Unspecified mood [affective] disorder
CPT/HCPCS: 99214

== ENCOUNTER → 2025-08-06 14:39 | Outpatient (BNVA) | payer MEDICARE, MEDICAID, SELFPAY | PROVIDERS: PCP Internal Medicine; Visit Provider Clinical Nurse Specialist Psychiatric/Mental Health | DX: F41.1 Generalized anxiety disorder (principal); F39 Unspecified mood [affective] disorder; Z79.899 Other long term (current) drug therapy | CPT/HCPCS: 99212 ==